=== PATIENT | male | born 1945 | race Hispanic/Latino ===

== ENCOUNTER 2019-05-04 13:39 | Inpatient (IN) | payer BC, MEDICARE ==
[~2019-05-04] VITALS: Ht 172.7 cm; Wt 88.1 kg
[~2019-05-04 13:39] MED LIST: BYSTOLIC10 MG PO; CILOSTAZOL100 MG PO; CRESTOR10 MG PO; GLIMEPIRIDE2 MG PO; LOSARTAN POTASS25 MG PO; TOUJEO SC
--- OUTSIDE RECORDS SUMMARY | 2019-05-04 14:03 | XMS REPORT | Summary of Care ---
Author Author [facility] Organization [facility] Address Unknown Phone Unavailable Encounter HQ Fito(LUIZ) [id number] Date(s): 01/09/19 - 01/09/19 [facility] [address] Discharge Disposition: Home or Self Care Attending Physician: Juan Coughlin MD Referring Physician: Juan Coughlin MD Vital Signs 1 2 3 Most recent to oldest [Reference Range]: 167.64 cm (01/09/19 10:23 AM) Height 161/70 mmHg *HI* (01/09/19 2:45 PM) 168/63 mmHg *HI* (01/09/19 2:30 PM) 150/67 mmHg *HI* (01/09/19 2:15 PM) Blood Pressure [90-140/60-90 mmHg] 19 BRMIN (01/09/19 2:45 PM) 18 BRMIN (01/09/19 2:30 PM) 16 BRMIN (01/09/19 2:15 PM) Respiratory Rate [14-20 BRMIN] 94.545 kg (01/09/19 10:23 AM) Weight 33.64 m2 (01/09/19 10:23 AM) Body Mass Index Problem List Condition Effective Dates Status Health Status Informant Anxiety(Confirmed) Active Coronary artery Active disease(Confirmed) Diabetes Resolved mellitus(Confirmed) Diabetes mellitus - Active adult onset(Confirmed) Hyperlipidemia(Confi Active rmed) Hyperlipidemia(Confi Resolved rmed) Hypertension(Confirm Active ed) Hypertension(Confirm Resolved ed) Prostate Resolved carcinoma(Confirmed) PVD - Peripheral Active vascular disease(Confirmed) PVD - Peripheral Resolved vascular disease(Confirmed) Allergies, Adverse Reactions, Alerts Substance Reaction Severity Status NKDA Active Medications ANES fentaNYL 50 microgram, 1 mL, Route: IVP, Drug form: INJ, Q5Min, Dosing Weight 94.545, kg, PRN Pain Score 7-10, Priority: Routine, Start date: 01/09/19 10:57:00 [employer], Dura tion: 2 doses or times, Stop date: 01/10/19 0:00:00 [employer] Notes: (Same as: Sublimaze) Preservative free. Start Date: 01/09/19 Stop Date: 01/10/19 Status: Completed ANES flumazenil 0.2 mg, 2 mL, Route: IVP, Drug form: INJ, PRN, Dosing Weight 94.545, kg, PRN Romie zodiazepine Reversal, Initial dose, Start date: 01/09/19 10:57:00 [employer], Duration: 30 day, Stop date: 02/08/19 11:56:00 CDT Notes: (Same as: Romazicon) Start Date: 01/09/19 Stop Date: 01/10/19 Status: Discontinued ANES hydrALAZINE 10 mg, 0.5 mL, Route: IVP, Drug form: INJ, Q20Min, Dosing Weight 94.545, kg, PRN Elevated BP, Start date: 01/09/19 10:57:00 [employer], Duration: 2 doses or times, Stop date: 01/10/19 0:00:00 [employer] Notes: (Same as: Apresoline)Push over 5 minutes Start Date: 01/09/19 Stop Date: 01/10/19 Status: Completed ANES HYDROmorphone 0.5 mg, 0.25 mL, Route: IVP, Drug form: INJ, Q5Min, Dosing Weight 94.545, kg, [place] N Pain Score 7-10, Start date: 01/09/19 10:57:00 [employer], Duration: 4 doses or times , Stop date: 01/10/19 0:00:00 [employer] Notes: Same as Dilaudid Start Date: 01/09/19 Stop Date: 01/10/19 Status: Completed ANES metoprolol 1 mg, 1 mL, Route: IVP, Drug form: INJ, Q5Min, Dosing Weight 94.545, kg, PRN Oth er -See Comment, Start date: 01/09/19 10:57:00 [employer], Duration: 5 doses or times, Stop date: 01/10/19 0:00:00 [employer] Notes: (Same as: Lopressor)Push over 2 minutes Start Date: 01/09/19 Stop Date: 01/10/19 Status: Completed ANES naloxone 0.4 mg, 1 mL, Route: IVP, Drug form: INJ, Q2MIN, Dosing Weight 94.545, kg, PRN N arcotic Reversal, Start date: 01/09/19 10:57:00 [employer], Duration: 8 doses or times, Stop date: 01/10/19 0:00:00 [employer] Notes: Same as Narcan Start Date: 01/09/19 Stop Date: 01/10/19 Status: Completed ANES ondansetron 4 mg, 2 mL, Route: IVP, Drug form: INJ, ONCE, Dosing Weight 94.545, kg, PRN Naus ea & Vomiting, Start date: 01/09/19 10:57:00 [employer] Notes: (Same as: Zofran) MEDICATION WASTE Product Size: 4 mgProduct Was eneida: ___ mg Start Date: 01/09/19 Stop Date: 01/10/19 Status: Discontinued ceFAZolin (ANES) Route: IV, Drug form: INJ, ONCE, Stop date: 01/09/19 11:08:00 [employer] Start Date: 01/09/19 Stop Date: 01/09/19 Status: Completed fentaNYL (ANES) Route: IV, Drug form: INJ, ONCE, Stop date: 01/09/19 11:08:00 [employer] Start Date: 01/09/19 Stop Date: 01/09/19 Status: Completed heparin (ANES) Route: IV, Drug form: INJ, ONCE, Stop date: 01/09/19 12:08:00 [employer] Start Date: 01/09/19 Stop Date: 01/09/19 Status: Completed metoprolol (ANES) Route: IV, Drug form: INJ, ONCE, Stop date: 01/09/19 12:46:00 [employer] Start Date: 01/09/19 Stop Date: 01/09/19 Status: Completed midazolam (ANES) Route: IV, Drug form: SOLN, ONCE, Stop date: 01/09/19 11:03:00 [employer] Start Date: 01/09/19 Stop Date: 01/09/19 Status: Completed protamine (ANES) Route: IV, Drug form: INJ, ONCE, Stop date: 01/09/19 12:40:00 [employer] Start Date: 01/09/19 Stop Date: 01/09/19 Status: Completed Sodium Chloride 0.9% (titrate) 250 mL 250 mL, Rate: To prime line and flush remaining blood products., Dosing Weight 8 8.324, kg, Route: IV, Total Volume: 250, Start Date: 01/09/19 5:00:00 [employer], Durat ion: 1 day, Stop date: 01/10/19 4:59:00 [employer], Replace Every: 24 hr Start Date: 01/09/19 Stop Date: 01/10/19 Status: Discontinued Sodium Chloride 0.9% IV (ANES) 1000 mL Route: IV, Total Volume: 1,000, Start date: 01/09/19 11:45:00 [employer], Stop date: 12:45:00 [employer] Start Date: 01/09/19 Stop Date: 01/09/19 Status: Completed Results ELECTROLYTES Most recent to 1 oldest [Reference Range]: Sodium Lvl [135-145 142 mEq/L mEq/L] (01/09/19 9:53 AM) Potassium Lvl 4.5 mEq/L [3.5-5.1 mEq/L] (01/09/19 9:53 AM) Chloride Lvl [95-109 106 mEq/L mEq/L] (01/09/19 9:53 AM) CO2 [24-32 mEq/L] 26 mEq/L (01/09/19 9:53 AM) AGAP [10.0-20.0 14.5 mEq/L mEq/L] (01/09/19 9:53 AM) CHEM PANEL Most recent to 1 oldest [Reference Range]: Creatinine Lvl 1.07 mg/dL [0.50-1.40 mg/dL] (01/09/19 9:53 AM) eGFR 68 mL/min/1.73m2 1 *NA* (01/09/19 9:53 AM) BUN [7-22 mg/dL] 16 mg/dL (01/09/19 9:53 AM) B/C Ratio [6-25] 15 (01/09/19 9:53 AM) Glucose Lvl [70-99 106 mg/dL mg/dL] *HI* (01/09/19 9:53 AM) Total Protein 8.1 g/dL [6.4-8.4 g/dL] (01/09/19 9:53 AM) Albumin Lvl [3.5-5.0 4.4 g/dL g/dL] (01/09/19 9:53 AM) Globulin [2.7-4.2 3.7 g/dL g/dL] (01/09/19 9:53 AM) A/G Ratio [0.7-1.6] 1.2 (01/09/19 9:53 AM) Calcium Lvl 10.2 mg/dL [8.5-10.5 mg/dL] (01/09/19 9:53 AM) ALT [0-65 unit/L] 24 unit/L (01/09/19 9:53 AM) AST [0-37 unit/L] 23 unit/L (01/09/19 9:53 AM) Alk Phos [39-136 70 unit/L unit/L] (01/09/19 9:53 AM) Bili Total [0.2-1.3 0.4 mg/dL mg/dL] (01/09/19 9:53 AM) 1Result Comment: The eGFR is calculated using the CKD-EPI formula. In most young, healthy individuals the eGFR will be >90 mL/min/1.73m2. The eGFR declines with age. An eGFR of 60-89 may be normal in some populations, particularly the elderly, for whom the CKD-EPI formula has not been extensively validated. Use of the eGFR is not recommended in the following populations: Individuals with unstable creatinine concentrations, including patients and those with serious co-morbid conditions. Patients with extremes in muscle mass or diet. The data above are obtained from the National Kidney Disease Education Program ( NKDEP) which additionally recommends that when the eGFR is used in patients with extremes of body mass index for purposes of drug dosing, the eGFR should be mul tiplied by the estimated BMI. SPECIAL CHEMISTRY Most recent to 1 oldest [Reference Range]: Hgb A1C [<=5.6 %] 6.9 % *HI* (01/09/19 9:53 AM) HEMATOLOGY Most recent to 1 oldest [Reference Range]: WBC [3.7-10.4 K/CMM] 9.3 K/CMM (01/09/19 9:53 AM) RBC [4.70-6.10 4.46 M/CMM M/CMM] *LOW* (01/09/19 9:53 AM) Hgb [14.0-18.0 g/dL] 13.3 g/dL *LOW* (01/09/19 9:53 AM) Hct [42.0-54.0 %] 39.1 % *LOW* (01/09/19 9:53 AM) MCV [80.0-94.0 fL] 87.8 fL (01/09/19 9:53 AM) MCH [27.0-31.0 pg] 29.7 pg (01/09/19 9:53 AM) MCHC [32.0-36.0 33.9 g/dL g/dL] (01/09/19 9:53 AM) RDW [11.5-14.5 %] 13.8 % (01/09/19 9:53 AM) MPV [7.4-10.4 fL] 8.9 fL (01/09/19 9:53 AM) Platelet [133-450 222 K/CMM K/CMM] (01/09/19 9:53 AM) Segs [45.0-75.0 %] 62.1 % (01/09/19 9:53 AM) Lymphocytes 27.9 % [20.0-40.0 %] (01/09/19 9:53 AM) Monocytes [2.0-12.0 6.9 % %] (01/09/19 9:53 AM) Eosinophils [0.0-4.0 2.4 % %] (01/09/19 9:53 AM) Basophils [0.0-1.0 0.7 % %] (01/09/19 9:53 AM) Neutrophils # 5.8 K/CMM [1.5-8.1 K/CMM] (01/09/19 9:53 AM) Lymphocytes # 2.6 K/CMM [1.0-5.5 K/CMM] (01/09/19 9:53 AM) Monocytes # [0.0-0.8 0.6 K/CMM K/CMM] (01/09/19 9:53 AM) Eosinophils # 0.2 K/CMM [0.0-0.5 K/CMM] (01/09/19 9:53 AM) Basophils # [0.0-0.2 0.1 K/CMM K/CMM] (01/09/19 9:53 AM) PT [12.0-14.7 13.0 seconds seconds] (01/09/19 9:53 AM) INR [0.85-1.17] 1.00 (01/09/19 9:53 AM) PTT [22.9-35.8 32.2 seconds seconds] (01/09/19 9:53 AM) Immunizations Not Given Vaccine Date Status Refusal Reason pneumococcal 23-valent vaccine 04/21/16 Not Given Patient Refuses Procedures Procedure Date Related Diagnosis Body Site Status MELVIN - Insertion of stent into common iliac Completed artery Femoral-popliteal artery bypass graft Completed Prostatectomy Completed Social History Social History Type Response Alcohol Never Smoking Status Never smoker; Previous treatment: None; Ready to change: No; Concerns about tobacco use in household: No; Exposure to Tobacco Smoke None; Cigarette Smoking Last 365 Days No; Reg Smoking Cessation Counseling No entered on: 01/09/19 Assessment and Plan Extracted from: Title: Clinical Document Author: Sarah Santiago RN Date: 01/09/19 Reason For Visit Follow-up visit. History of Present Illness Nir Isaac is a 72 year old patient with PAD and CAD who presents for follow- up left [employer] endarterectomy on 04/20/2016. The patient L>R intermittent claudication despite use of Pletal. He reports pain at 1/2 block and denies any rest pain. He states he has difficulty working due to the pain. He denies any skin breakdown. Review of Systems Constitutional: fatigue, butno feverandno chills. Cardiovascular: intermittent leg claudication, butno chest painandno palpitations. Respiratory: no shortness of breathandno shortness of breath during exertion. Gastrointestinal: no abdominal pain,no vomitingandno nausea. Genitourinary: no dysuria. Musculoskeletal: no limb painandno limb swelling. Integumentary: no skin wound. Neurological: no dizziness,no fainting,no tingling,no limb weaknessandno headache. Psychiatric: no anxietyandno depression. Active Problems 1. 3-vessel CAD (414.00) (I25.10) 2. Claudication (443.9) (I73.9) 3. Leg pain (729.5) (M79.606) 4. Peripheral arterial disease (443.9) (I73.9) 5. 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 1. No Known Drug Allergies Past Medical History 1. History of diabetes mellitus (V12.29) (Z86.39) 2. History of essential hypertension (V12.59) (Z86.79) 3. History of hyperlipidemia (V12.29) (Z86.39) Surgical History 1. History of Coronary artery bypass graft Social History Never a smoker No alcohol use Vitals UTP Adult Vital Signs Recorded: [id number] 11:13AM Height: 5 ft Weight: 208.4 lb BMI Calculated: 40.7 BSA Calculated: 1.9 Blood Pressure: 106 / 63 Temperature: 97.6 F Heart Rate: 73 Current Meds medication list reconciled and reviewed 1. Amiodarone HCl - 200 MG Oral Tablet; Therapy: (Recorded:16Oct2017) to Recorded 2. Aspirin TABS; Therapy: (Recorded:19Aug2014) to Recorded 3. Bystolic 20 MG Oral Tablet; Therapy: (Recorded:16Oct2017) to Recorded 4. Bystolic TABS; Therapy: (Recorded:19Aug2014) to Recorded 5. Cilostazol 100 MG Oral Tablet; Therapy: (Recorded:16Oct2017) to Recorded 6. Cozaar TABS; Therapy: (Recorded:19Aug2014) to Recorded 7. Crestor 20 MG Oral Tablet; Therapy: (Recorded:16Oct2017) to Recorded 8. Gabapentin CAPS; Therapy: (Recorded:16Oct2017) to Recorded 9. Glimepiride TABS; Therapy: (Recorded:19Aug2014) to Recorded 10. Lasix TABS; Therapy: (Recorded:16Oct2017) to Recorded 11. Lovaza CAPS; Therapy: (Recorded:19Aug2014) to Recorded 12. MetFORMIN HCl TABS; Therapy: (Recorded:[id number]) to Recorded Physical Exam General: alert and oriented,in no acute distressandwell nourished. Neck: the neck was supple,no neck mass was observedandthe appearance of the neck was normal. Pulmonary: normal respiratory rhythm and effortandclear bilateral breath sounds. Cardiac: heart rate and rhythm were normal. Vascular: no edemaandnormal femoral pulses. Pulses: Right dorsalis pedis pulses: negative. Left dorsalis pedis pulse: negative. Right posterior tibial pulses: negative. Left posterior tibial pulse: negative. Extremities: Right sided incision(s) well healed,left sided incision(s) well healed Lymphatics: no lymphadenopathy. Abdomen: soft,midline incision(s) well healed,non-tenderandno abdominal mass palpated. Neurologic: the motor exam was normal, butthe sensory exam was normal to light touch and pinprick. Musculoskeletal: muscle strength and tone were normal. Skin: no skin lesions. Psychiatric: oriented to person, place, and timeandthe affect was normal. Assessment Patient is a 73-year-old man with lifestyle limiting one half block bilateral leg claudication. He reports worse pain on the left side. 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 He quit smoking and has tried exercise therapy. He has also tried Pletal without relief. We previously scheduled him for angiogram in February 2018 but his canceled the case since he was not feeling well. He has a lower midline abdominal incision as well as bilateral vertical groin incisions but neither the patient nor his remember the exact procedure he had. They felt that it was a procedure for fertility more than 20 years ago. We will schedule him for left lower extremity angiogram and revascularization. Risk and Benefits Risks, benefits, and alternate therapies including non-operative management were discussed with the patient. Patient verbalizes understanding and wishes to proceed. The patient understands that there is a potential for infection, blood clots in veins and lungs, hemorrhage, allergic reaction, and even . Other risks include: limb loss,myocardial infarction,nerve injuryandrecurrence of symptoms. Signatures Electronically signed by : JUAN COUGHLIN M.D.; Nov 04 2018 5:16PM [employer] (Author)
--- OUTSIDE RECORDS SUMMARY | 2019-05-04 14:03 | XMS REPORT | Summary of Care ---
Author Organization Unknown Address Unknown Phone Unavailable Encounter HQ Rahatntr_nikia(LUIZ) [id number] Date(s): 06/18/14 - 06/18/14 [facility] [address] [place] [address] Discharge Disposition: Home Physician Attending: Khari Wilson MD Physician_Referring: Khari Wilson MD Reason for Visit 443.9 Problem List Condition Effective Dates Status Health Status Informant Anxiety(Confirmed) Active Coronary artery Active disease(Confirmed) Diabetes Resolved mellitus(Confirmed) Diabetes mellitus - Active adult onset(Confirmed) Hyperlipidemia(Confi Active rmed) Hyperlipidemia(Confi Resolved rmed) Hypertension(Confirm Active ed) Hypertension(Confirm Resolved ed) Prostate Resolved carcinoma(Confirmed) PVD - Peripheral Active vascular disease(Confirmed) PVD - Peripheral Resolved vascular disease(Confirmed) Allergies, Adverse Reactions, Alerts Substance Reaction Severity Status NKDA Active Medications No data available for this section Medications Administered During Your Visit No data available for this section Immunizations No data available for this section
--- OUTSIDE RECORDS SUMMARY | 2019-05-04 14:03 | XMS REPORT | Summary of Care ---
Author Author [facility] Organization [facility] Address Unknown Phone Unavailable Encounter [facility](LUIZ) [id number] Date(s): 07/12/17 - 07/26/17 [facility] [address] [employer] provided by [employer] [place] [address]- Discharge Disposition: Home or Self Care Attending Physician: Noe Zheng MD Admitting Physician: Aftab Rievra MD Referring Physician: Aftab Rivera MD Vital Signs 1 2 3 Most recent to oldest [Reference Range]: 172.72 cm (07/19/17 11:16 PM) 172.72 cm (07/19/17 7:05 PM) 172.72 cm (07/12/17 7:34 AM) Height 95.085 kg (07/25/17 4:23 AM) 96.392 kg (07/24/17 5:21 AM) 97.818 kg (07/23/17 4:17 AM) Current Weight 98.7 DegF (07/26/17 12:09 PM) 97.7 DegF (07/26/17 7:16 AM) 97.6 DegF (07/26/17 4:44 AM) Temperature Oral [96.4-99.1 DegF] 116/55 mmHg (07/26/17 11:13 AM) 119/57 mmHg (07/26/17 9:20 AM) 147/65 mmHg *HI* (07/26/17 7:16 AM) Blood Pressure [90-140/60-90 mmHg] 16 BRMIN (07/26/17 11:13 AM) 20 BRMIN (07/26/17 9:20 AM) 12 BRMIN *LOW* (07/26/17 7:16 AM) Respiratory Rate [14-20 BRMIN] 88.324 kg (07/19/17 6:02 AM) 91.364 kg (07/12/17 7:34 AM) Weight 30.63 m2 (07/12/17 7:34 AM) Body Mass Index Problem List Condition [...] Substance Reaction Severity Status NKDA Active Medications acetaminophen 1,000 mg, 100 mL, Route: IV, Drug form: INJ, Q6Hnow, Dosing Weight 88.324, kg, S tart date: 07/20/17 13:00:00 CDT, Duration: 30 day, Stop date: 08/19/17 7:00:00 CDT Notes: Infuse over 15 minutesDo not exceed 4gm/day of acetaminophen MEDICAT ION WASTE Product Size: 1000 mgProduct Wasted: _0_ mg Start Date: 07/20/17 Stop Date: 07/23/17 Status: Discontinued albumin human 5% intravenous solution 12.5 gm, 250 mL, 500 ml/hr, Route: IV, Drug Form: INJ, Dosing Weight 88.324, kg, ONCE, Start date: 07/19/17 22:42:00 CDT, Stop date: 07/19/17 22:42:00 CDT Notes: LOT#: Mfg: WASTE: F/P - Red; E -Red (Same a s: Albuminar)"blood product derivative" Start Date: 07/19/17 Stop Date: 07/19/17 Status: Completed albumin human 5% intravenous solution 12.5 gm, 250 mL, 500 ml/hr, Route: IV, Drug Form: INJ, Dosing Weight 88.324, kg, ONCE, Start date: 07/19/17 22:08:00 CDT, Stop date: 07/19/17 22:08:00 CDT Notes: LOT#: Mfg: WASTE: F/P - Red; E -Red (Same a s: Albuminar)"blood product derivative" Start Date: 07/19/17 Stop Date: 07/19/17 Status: Completed AMIODarone 400 mg, 2 tab, Route: PO, Drug form: TAB, BID, Dosing Weight 88.324, kg, Priorit y: NOW, Start date: 07/22/17 10:12:00 CDT, Stop date: 08/21/17 9:00:00 CDT Notes: (Same as: Cordarone) Start Date: 07/22/17 Stop Date: 07/25/17 Status: Discontinued AMIODarone 200 mg, 1 tab, Route: PO, Drug form: TAB, BID, Dosing Weight 88.324, kg, Start d ate: 07/25/17 9:00:00 CDT, Duration: 30 day, Stop date: 08/23/17 17:00:00 CDT Notes: (Same as: Cordarone) Start Date: 07/25/17 Stop Date: 07/26/17 Status: Discontinued AMIODarone + D5W 100 mL 150 mg, 3 mL, Route: IVPB, ONCE, Dosing Weight 88.324, kg, Start date: 07/24/17 3:57:00 CDT, Stop date: 07/24/17 3:57:00 CDT Notes: Central administration only for concentrations > 2 mg/ml."Recommendation: Use an in-line filter during administration for continuous infusions to reduce the incidence of phlebitis"(Same as Codarone) MEDICATION WASTE Product Size: 150 mgProduct Wasted: ___ mg Start Date: 07/24/17 Stop Date: 07/24/17 Status: Completed AMIODarone + Dextrose 5% in Water IV 100 mL 150 mg, Route: IVPB, ONCE, Dosing Weight 88.324, kg, Start date: 07/21/17 12:15: 00 CDT, Stop date: 07/21/17 12:15:00 CDT Start Date: 07/21/17 Stop Date: 07/21/17 Status: Completed AMIODarone 200 mg oral tablet 200 mg=1 tab, PO, BID, # 60 tab, 0 Refill(s) Start Date: 07/26/17 Stop Date: 07/26/17 Status: Deleted AMIODarone 200 mg oral tablet 200 mg=1 tab, PO, BID, # 60 tab, 0 Refill(s) Start Date: 07/26/17 Stop Date: 08/25/17 Status: Ordered AMIODarone INJ 900 mg + D5W 500 ml INJ 482 mL 900 mg, 18 mL, Rate: 1 mg/min for 6 hours, then reduce to 0.5 mg/min, Dosing Steve t 88.324, kg, Route: IV, Total Volume: 500, Start Date: 07/21/17 12:15:00 CDT, Duration: 30 day, Stop date: 08/20/17 12:14:00 CDT, Replace Every: 24 hr Notes: Central administration only for concentration > 2 mg/ml. Use Glass Bottle or Non PVC Bag"Use 0.22 micron in-line filter" MEDICATION WASTE Product Size: 900 mgProduct Wasted: _0__ mg Start Date: 07/21/17 Stop Date: 07/22/17 Status: Discontinued AMIODarone INJ 900 mg + D5W 500 ml INJ 482 mL 900 mg, 18 mL, Rate: 1 mg/min for 6 hours, then reduce to 0.5 mg/min, Dosing Steve t 88.324, kg, Route: IV, Total Volume: 500, Start Date: 07/24/17 3:57:00 CDT, Duration: 30 day, Stop date: 08/23/17 3:56:00 CDT, Replace Every: 24 hr Notes: Central administration only for concentration > 2 mg/ml. Use Glass Bottle or Non PVC Bag"Use 0.22 micron in-line filter" MEDICATION WASTE Product Size: 900 mgProduct Wasted: ___ mg Start Date: 07/24/17 Stop Date: 07/24/17 Status: Discontinued aspirin 81 mg tablet, enteric coated 81 mg, 1 tab, Route: PO, Drug form: ECTAB, Daily, Dosing Weight 88.324, kg, Star t date: 07/26/17 9:00:00 CDT, Duration: 30 day, Stop date: 08/24/17 9:00:00 CDT Notes: Do not crush or chew.(Same As: Ecotrin) Start Date: 07/26/17 Stop Date: 07/26/17 Status: Discontinued aspirin 81 mg tablet, enteric coated 81 mg, 1 tab, Route: PO, Drug form: ECTAB, Daily, Dosing Weight 91.364, kg, Star t date: 07/13/17 9:00:00 CDT, Duration: 30 day, Stop date: 08/11/17 9:00:00 CDT Notes: Do not crush or chew.(Same As: Ecotrin) Start Date: 07/13/17 Stop Date: 07/19/17 Status: Discontinued aspirin 81 mg tablet, enteric coated 162 mg, 2 tab, Route: PO, Drug form: ECTAB, Daily, Dosing Weight 88.324, kg, Sta rt date: 07/20/17 9:00:00 CDT, Duration: 30 day, Stop date: 08/18/17 9:00:00 CDT Notes: Do not crush or chew.(Same As: Ecotrin) Start Date: 07/20/17 Stop Date: 07/25/17 Status: Discontinued atorvastatin 40 mg, Route: PO, Drug form: TAB, Bedtime, Dosing Weight 88.324, kg, Start date: 07/19/17 21:00:00 CDT, Duration: 30 day, Stop date: 08/17/17 21:00:00 CDT Start Date: 07/19/17 Stop Date: 07/19/17 Status: Discontinued Bystolic 20 mg, 4 tab, Route: PO, Drug form: TAB, Daily, Dosing Weight 91.364, kg, Start date: 07/13/17 9:00:00 CDT, Stop date: 08/11/17 9:00:00 CDT Notes: (same as: Bystolic) Start Date: 07/13/17 Stop Date: 07/26/17 Status: Discontinued calcium carbonate 500 mg (200 mg elemental calcium) oral tablet 1,000 mg, 2 tab, Route: PO, Drug form: CHEWTAB, PRN, Dosing Weight 88.324, kg, P RN Abnormal Lab Result, FOR ICU USE ONLY, Start date: 07/19/17 18:37:00 CDT, Dur ation: 30 day, Stop date: 08/18/17 18:36:00 CDT Notes: (Same As: Tums)Calcium Carbonate 500 pb=374 mg elemental calcium Dose=_ mg calcium carbonate ( mg elemental calcium) Start Date: 07/19/17 Stop Date: 07/23/17 Status: Discontinued calcium carbonate 500 mg (200 mg elemental calcium) oral tablet 500 mg, 1 tab, Route: PO, Drug form: CHEWTAB, PRN, Dosing Weight 88.324, kg, PRN Abnormal Lab Result, FOR ICU USE ONLY, Start date: 07/19/17 18:37:00 CDT, Durat ion: 30 day, Stop date: 08/18/17 18:36:00 CDT Notes: (Same As: Tums)Calcium Carbonate 500 bm=346 mg elemental calcium Dose=_ mg calcium carbonate ( mg elemental calcium) Start Date: 07/19/17 Stop Date: 07/23/17 Status: Discontinued calcium gluconate (ANES) Route: IV, Drug form: INJ, ONCE, Stop date: 07/19/17 18:24:00 CDT Start Date: 07/19/17 Stop Date: 07/19/17 Status: Completed calcium gluconate + sodium chloride 0.9% INJ 50 mL 1 gm, 10 mL, Route: IVPB, PRN, Dosing Weight 88.324, kg, PRN Abnormal Lab Result , Start date: 07/19/17 18:37:00 CDT, Duration: 30 day, Stop date: 08/18/17 18:36 :00 CDT, FOR ICU USE ONLY Notes: WASTE: F/P - Sink; E - Municipal Trash Bin Start Date: 07/19/17 Stop Date: 07/23/17 Status: Discontinued calcium gluconate + sodium chloride 0.9% INJ 70 mL 3 gm, 30 mL, Route: IVPB, PRN, Dosing Weight 88.324, kg, PRN Abnormal Lab Result , For NON-ICU Patients Only., Start date: 07/23/17 10:49:00 CDT, Duration: 30 da y, Stop date: 08/22/17 10:48:00 CDT Notes: WASTE: F/P - Sink; E - Municipal Trash Bin Start Date: 07/23/17 Stop Date: 07/26/17 Status: Discontinued calcium gluconate + sodium chloride 0.9% INJ 80 mL 3 gm, 30 mL, Route: IVPB, PRN, Dosing Weight 91.364, kg, PRN Abnormal Lab Result , For NON-ICU Patients Only., Start date: 07/12/17 14:48:00 CDT, Duration: 30 da y, Stop date: 08/11/17 14:47:00 CDT Notes: WASTE: F/P - Sink; E - Municipal Trash Bin Start Date: 07/12/17 Stop Date: 07/19/17 Status: Discontinued calcium gluconate + sodium chloride 0.9% INJ 80 mL 2 gm, 20 mL, Route: IVPB, PRN, Dosing Weight 91.364, kg, PRN Abnormal Lab Result , For NON-ICU Patients Only., Start date: 07/12/17 14:48:00 CDT, Duration: 30 da y, Stop date: 08/11/17 14:47:00 CDT Notes: WASTE: F/P - Sink; E - Municipal Trash Bin Start Date: 07/12/17 Stop Date: 07/19/17 Status: Discontinued calcium gluconate + sodium chloride 0.9% INJ 80 mL 2 gm, 20 mL, Route: IVPB, PRN, Dosing Weight 88.324, kg, PRN Abnormal Lab Result , For NON-ICU Patients Only., Start date: 07/23/17 10:49:00 CDT, Duration: 30 da y, Stop date: 08/22/17 10:48:00 CDT Notes: WASTE: F/P - Sink; E - Municipal Trash Bin Start Date: 07/23/17 Stop Date: 07/26/17 Status: Discontinued Cardiac Rehabilitation See Instructions, s/p CABGx3, # 1 unit, 0 Refill(s) Start Date: 07/26/17 Status: Ordered ceFAZolin (ANES) Route: IV, Drug form: INJ, ONCE, Stop date: 07/19/17 15:33:00 CDT Start Date: 07/19/17 Stop Date: 07/19/17 Status: Completed ceFAZolin (SCIP) 2 gm, 100 mL, Route: IVPB, Drug form: INJ, [id number], Dosing Weight 88.324, kg, Sta rt date: 07/20/17 2:30:00 CDT, Duration: 3 doses or times, Stop date: 07/20/17 1 8:30:00 CDT, ABX Indication: Surgical Prophylaxis Notes: Same as: Ancef Start Date: 07/20/17 Stop Date: 07/20/17 Status: Completed chlorhexidine topical 0.12% liquid 15 mL, Route: Swab Mouth, Q12H, Drug form: LIQ, Start date: 07/19/17 21:00:00 CD T, Duration: 30 day, Stop date: 08/18/17 9:00:00 CDT Notes: (Same As: Peridex) Start Date: 07/19/17 Stop Date: 07/20/17 Status: Discontinued chlorhexidine topical 0.12% liquid 15 mL, Route: Swab Mouth, PRN, Drug form: LIQ, PRN Other -See Comment, Start renate e: 07/19/17 19:16:00 CDT, Duration: 30 day, Stop date: 08/18/17 19:15:00 CDT Notes: (Same As: Peridex) Start Date: 07/19/17 Stop Date: 07/20/17 Status: Discontinued cilostazol 100 mg, 2 tab, Route: PO, Drug form: TAB, BID, Dosing Weight 91.364, kg, Start d ate: 07/12/17 17:00:00 CDT, Stop date: 08/11/17 9:00:00 CDT Notes: Non-Formulary Drug. (Same As: Pletal) Start Date: 07/12/17 Stop Date: 07/17/17 Status: Discontinued colchicine 0.6 mg, 1 tab, Route: PO, Drug form: TAB, BID, Dosing Weight 88.324, kg, Start d ate: 07/25/17 17:00:00 CDT, Duration: 30 day, Stop date: 08/24/17 9:00:00 CDT Start Date: 07/25/17 Stop Date: 07/26/17 Status: Discontinued Crestor 20 mg, 2 tab, Route: PO, Drug form: TAB, Bedtime, Dosing Weight 91.364, kg, Star t date: 07/12/17 21:37:00 CDT, Duration: 30 day, Stop date: 08/11/17 21:00:00 CD T Notes: (Same As: Crestor) Start Date: 07/12/17 Stop Date: 07/26/17 Status: Discontinued Dextrose 50% Syringe 25 gm, 50 mL, Route: IVP, Drug Form: INJ, Dosing Weight 88.324, kg, PRN, PRN Blo od Glucose Results, Start date: 07/19/17 18:37:00 CDT, Duration: 30 day, Stop da te: 08/18/17 18:36:00 CDT Start Date: 07/19/17 Stop Date: 07/22/17 Status: Discontinued Dextrose 50% Syringe 12.5 gm, 25 mL, Route: IVP, Drug Form: INJ, Dosing Weight 88.324, kg, PRN, PRN B lood Glucose Results, Start date: 07/19/17 18:37:00 CDT, Duration: 30 day, Stop date: 08/18/17 18:36:00 CDT Start Date: 07/19/17 Stop Date: 07/22/17 Status: Discontinued Dextrose 50% Syringe 12.5 gm, 25 mL, Route: IVP, Drug Form: INJ, Dosing Weight 88.324, kg, PRN, PRN B lood Glucose Results, Start date: 07/21/17 11:22:00 CDT, Duration: 30 day, Stop date: 08/20/17 11:21:00 CDT Start Date: 07/21/17 Stop Date: 07/26/17 Status: Discontinued Dextrose 50% Syringe 25 gm, 50 mL, Route: IVP, Drug Form: INJ, Dosing Weight 88.324, kg, PRN, PRN Blo od Glucose Results, Start date: 07/21/17 11:22:00 CDT, Duration: 30 day, Stop da te: 08/20/17 11:21:00 CDT Start Date: 07/21/17 Stop Date: 07/26/17 Status: Discontinued Dextrose 50% Syringe 12.5 gm, 25 mL, Route: IVP, Drug Form: INJ, Dosing Weight 91.364, kg, PRN, PRN B lood Glucose Results, Start date: 07/12/17 11:53:00 CDT, Duration: 30 day, Stop date: 08/11/17 11:52:00 CDT Start Date: 07/12/17 Stop Date: 07/19/17 Status: Discontinued Dextrose 50% Syringe 25 gm, 50 mL, Route: IVP, Drug Form: INJ, Dosing Weight 91.364, kg, PRN, PRN Blo od Glucose Results, Start date: 07/12/17 11:53:00 CDT, Duration: 30 day, Stop da te: 08/11/17 11:52:00 CDT Start Date: 07/12/17 Stop Date: 07/19/17 Status: Discontinued Doc-Q-Lax 2 tab, Route: PO, Drug Form: TAB, Dosing Weight 88.324, kg, Daily, PRN Constipat ion, Start date: 07/21/17 9:00:00 CDT, Stop date: 08/19/17 9:00:00 CDT Notes: (Same as Senokot-S) Equiv. to Aileen-Colace. Start Date: 07/21/17 Stop Date: 07/26/17 Status: Discontinued docusate-senna 50 mg-8.6 mg oral tablet 2 tab, PO, Daily, PRN Constipation, X 14 day, # 28 tab, 0 Refill(s) Start Date: 07/26/17 Stop Date: 08/09/17 Status: Ordered DuoNeb inhalation solution 3 ml, Route: NEB, Drug Form: SOLN, Dosing Weight 88.324, kg, PRN, PRN Respirator y Protocol, Start date: 07/19/17 20:50:00 CDT, Duration: 30 day, Stop date: 12/04 20:49:00 CDT Notes: (Same as: Duoneb) Start Date: 07/19/17 Stop Date: 07/26/17 Status: Discontinued Electrolyte Solution 1000 mL 1,000 mL, Rate: 100 ml/hr, Infuse over: 10 hr, Route: IV, Dosing Weight 91.364 k g, Total Volume: 1,000, Start date: 07/18/17 12:32:00 CDT, Duration: 30 day, Sto p date: 08/17/17 12:31:00 CDT Start Date: 07/18/17 Stop Date: 07/18/17 Status: Discontinued Emla topical cream 1 appl, Route: TOP, ONCE, Drug form: CRM, Start date: 07/12/17 7:37:00 CDT, Stop date: 07/12/17 7:37:00 CDT Notes: Apply to desired area 2 hrs prior to needle insertion. (Same as: Emla) Start Date: 07/12/17 Stop Date: 07/12/17 Status: Completed esmolol (ANES) Route: IV, Drug form: INJ, ONCE, Stop date: 07/19/17 16:28:00 CDT Start Date: 07/19/17 Stop Date: 07/19/17 Status: Completed fentaNYL 25 microgram, 0.5 mL, Route: IV, Drug form: INJ, Q2H, Dosing Weight 88.324, kg, PRN Pain Score 4-6, Start date: 07/19/17 19:17:00 CDT, Duration: 30 day, Stop da te: 08/18/17 19:16:00 CDT Notes: (Same as: Sublimaze) Preservative free. Start Date: 07/19/17 Stop Date: 07/20/17 Status: Discontinued fentaNYL (ANES) Route: IV, Drug form: INJ, ONCE, Stop date: 07/19/17 14:43:00 CDT Start Date: 07/19/17 Stop Date: 07/19/17 Status: Completed fentaNYL - one time ICU bolus dose 50 microgram, 1 mL, Route: IVP, Drug form: INJ, ONCE, Dosing Weight 88.324, kg, Start date: 07/20/17 0:15:00 CDT, Stop date: 07/20/17 0:15:00 CDT Notes: (Same as: Sublimaze) Preservative free. Start Date: 07/20/17 Stop Date: 07/20/17 Status: Completed gabapentin 100 mg oral capsule 100 mg, 1 cap, Route: PO, Drug form: CAP, Q8Hnow, Dosing Weight 88.324, kg, Star t date: 07/20/17 10:30:00 CDT, Duration: 30 day, Stop date: 08/19/17 2:30:00 CDT Notes: (Same as: Neurontin) Start Date: 07/20/17 Stop Date: 07/26/17 Status: Discontinued gabapentin 100 mg oral capsule 100 mg=1 cap, PO, Q8Hnow, # 90 cap, 0 Refill(s) Start Date: 07/26/17 Stop Date: 08/25/17 Status: Ordered glucagon 1 mg, Route: IM, Drug form: PDR/INJ, PRN, Dosing Weight 88.324, kg, PRN Blood Gl ucose Results, Start date: 07/21/17 11:22:00 CDT, Duration: 30 day, Stop date: 1 11:21:00 CDT Start Date: 07/21/17 Stop Date: 07/26/17 Status: Discontinued glucagon 1 mg, Route: IM, Drug form: PDR/INJ, PRN, Dosing Weight 91.364, kg, PRN Blood Gl ucose Results, Start date: 07/12/17 11:53:00 CDT, Duration: 30 day, Stop date: 0 08/11/17 11:52:00 CDT Start Date: 07/12/17 Stop Date: 07/19/17 Status: Discontinued Glycerol 100 mL, Route: GA, Drug Form: MISC, ONCE, Start date: 07/21/17 8:58:00 CDT, Stop date: 07/21/17 8:58:00 CDT Notes: (Same as: Zohran) Start Date: 07/21/17 Stop Date: 07/21/17 Status: Completed heparin (ANES) Route: IV, Drug form: INJ, ONCE, Stop date: 07/19/17 16:23:00 CDT Start Date: 07/19/17 Stop Date: 07/19/17 Status: Completed heparin 5000 units/mL injectable solution 5,000 unit, 1 mL, Route: SUB-Q, Drug form: INJ, Q8H, Dosing Weight 91.364, kg, S tart date: 07/18/17 16:00:00 CDT, Duration: 30 day, Stop date: 08/17/17 8:00:00 CDT Notes: porcine heparin Start Date: 07/18/17 Stop Date: 07/20/17 Status: Discontinued HYDROmorphone SYSTEMS QA ANALYST 0.5mg/ml 30ml INJ 15 mg 15 mg, 30 mL, Route: IV, Initial Loading Dose: 0.4mg, SYSTEMS QA ANALYST Dose: 0.2 mg, SYSTEMS QA ANALYST Lock out: 10 minutes, Continuous Basal Rate: 0 mg, 4 Hour Limit (In MG): 6, Drug Form : INJ, Continuous, Start date: 07/20/17 1:30:00 CDT, Duration: 30 day, Stop date : 08/19/17... Notes: (Same as: Dilaudid) conc=0.5 mg/mlHydromorphone SYSTEMS QA ANALYST Dose: ;Delay: ;Basal: Start Date: 07/20/17 Stop Date: 07/21/17 Status: Discontinued insulin glargine 25 unit, 0.25 mL, Route: SUB-Q, Drug form: SOLN, Daily, Start date: 07/21/17 11: 30:00 CDT, Duration: 30 day, Stop date: 08/20/17 9:00:00 CDT Notes: (Same as: Lantus)Do not hold insulin without contacting prescriberWASTE: F/P - Black; E - Municipal Trash Bin "single patient use only" Start Date: 07/21/17 Stop Date: 07/26/17 Status: Discontinued insulin lispro 1 unit, 0.01 mL, Route: SUB-Q, Drug form: SOLN, TID-Before Meals, Dosing Weight 88.324, kg, PRN Blood Glucose Results, Start date: 07/21/17 11:22:00 CDT, Durati on: 30 day, Stop date: 08/20/17 11:21:00 CDT Notes: (Same as: Humalog ) Roll in palms of hands gently; Do not shake `vigorou sly. "Single Patient Use Only " (Restricted to patients requiring a dose > 60 units)WASTE: F/P - Black; E - Municipal Trash Bin Stable for 28 days at room temperature.Expires in days from Date Start Date: 07/21/17 Stop Date: 07/26/17 Status: Discontinued insulin lispro 4 unit, 0.04 mL, Route: SUB-Q, Drug form: SOLN, TID-Before Meals, Dosing Weight 88.324, kg, PRN Blood Glucose Results, Start date: 07/21/17 11:22:00 CDT, Durati on: 30 day, Stop date: 08/20/17 11:21:00 CDT Notes: (Same as: Humalog ) Roll in palms of hands gently; Do not shake `vigorou sly. "Single Patient Use Only " (Restricted to patients requiring a dose > 60 units)WASTE: F/P - Black; E - Municipal Trash Bin Stable for 28 days at room temperature.Expires in days from Date Start Date: 07/21/17 Stop Date: 07/26/17 Status: Discontinued insulin lispro 3 unit, 0.03 mL, Route: SUB-Q, Drug form: SOLN, TID-Before Meals, Dosing Weight 88.324, kg, PRN Blood Glucose Results, Start date: 07/21/17 11:22:00 CDT, Durati on: 30 day, Stop date: 08/20/17 11:21:00 CDT Notes: (Same as: Humalog ) Roll in palms of hands gently; Do not shake `vigorou sly. "Single Patient Use Only " (Restricted to patients requiring a dose > 60 units)WASTE: F/P - Black; E - Municipal Trash Bin Stable for 28 days at room temperature.Expires in days from Date Start Date: 07/21/17 Stop Date: 07/26/17 Status: Discontinued insulin lispro 2 unit, 0.02 mL, Route: SUB-Q, Drug form: SOLN, TID-Before Meals, Dosing Weight 88.324, kg, PRN Blood Glucose Results, Start date: 07/21/17 11:22:00 CDT, Durati on: 30 day, Stop date: 08/20/17 11:21:00 CDT Notes: (Same as: Humalog ) Roll in palms of hands gently; Do not shake `vigorou sly. "Single Patient Use Only " (Restricted to patients requiring a dose > 60 units)WASTE: F/P - Black; E - Municipal Trash Bin Stable for 28 days at room temperature.Expires in days from Date Start Date: 07/21/17 Stop Date: 07/26/17 Status: Discontinued insulin lispro 5 unit, 0.05 mL, Route: SUB-Q, Drug form: SOLN, TID-Before Meals, Dosing Weight 88.324, kg, PRN Blood Glucose Results, Start date: 07/21/17 11:22:00 CDT, Durati on: 30 day, Stop date: 08/20/17 11:21:00 CDT Notes: (Same as: Humalog ) Roll in palms of hands gently; Do not shake `vigorou sly. "Single Patient Use Only " (Restricted to patients requiring a dose > 60 units)WASTE: F/P - Black; E - Municipal Trash Bin Stable for 28 days at room temperature.Expires in days from Date Start Date: 07/21/17 Stop Date: 07/26/17 Status: Discontinued insulin lispro 8 unit, 0.08 mL, Route: SUB-Q, Drug form: SOLN, TID-Before Meals, Dosing Weight 88.324, kg, Start date: 07/21/17 11:30:00 CDT, Duration: 30 day, Stop date: 02/01 7:30:00 CDT Notes: (Same as: Humalog ) Roll in palms of hands gently; Do not shake `vigorou sly. "Single Patient Use Only " (Restricted to patients requiring a dose > 60 units)WASTE: F/P - Black; E - Municipal Trash Bin Stable for 28 days at room temperature.Expires in days from Date Start Date: 07/21/17 Stop Date: 07/26/17 Status: Discontinued insulin lispro 5 unit, 0.05 mL, Route: SUB-Q, Drug form: SOLN, TID-Before Meals, Dosing Weight 91.364, kg, PRN Blood Glucose Results, Start date: 07/12/17 11:53:00 CDT, Durati on: 30 day, Stop date: 08/11/17 11:52:00 CDT Notes: (Same as: Humalog ) Roll in palms of hands gently; Do not shake `vigorou sly. "Single Patient Use Only " (Restricted to patients requiring a dose > 60 units)WASTE: F/P - Black; E - Municipal Trash Bin Stable for 28 days at room temperature.Expires in days from Date Start Date: 07/12/17 Stop Date: 07/19/17 Status: Discontinued insulin lispro 4 unit, 0.04 mL, Route: SUB-Q, Drug form: SOLN, TID-Before Meals, Dosing Weight 91.364, kg, PRN Blood Glucose Results, Start date: 07/12/17 11:53:00 CDT, Durati on: 30 day, Stop date: 08/11/17 11:52:00 CDT Notes: (Same as: Humalog ) Roll in palms of hands gently; Do not shake `vigorou sly. "Single Patient Use Only " (Restricted to patients requiring a dose > 60 units)WASTE: F/P - Black; E - Municipal Trash Bin Stable for 28 days at room temperature.Expires in days from Date Start Date: 07/12/17 Stop Date: 07/19/17 Status: Discontinued insulin lispro 3 unit, 0.03 mL, Route: SUB-Q, Drug form: SOLN, TID-Before Meals, Dosing Weight 91.364, kg, PRN Blood Glucose Results, Start date: 07/12/17 11:53:00 CDT, Durati on: 30 day, Stop date: 08/11/17 11:52:00 CDT Notes: (Same as: Humalog ) Roll in palms of hands gently; Do not shake `vigorou sly. "Single Patient Use Only " (Restricted to patients requiring a dose > 60 units)WASTE: F/P - Black; E - Municipal Trash Bin Stable for 28 days at room temperature.Expires in days from Date Start Date: 07/12/17 Stop Date: 07/19/17 Status: Discontinued insulin lispro 2 unit, 0.02 mL, Route: SUB-Q, Drug form: SOLN, TID-Before Meals, Dosing Weight 91.364, kg, PRN Blood Glucose Results, Start date: 07/12/17 11:53:00 CDT, Durati on: 30 day, Stop date: 08/11/17 11:52:00 CDT Notes: (Same as: Humalog ) Roll in palms of hands gently; Do not shake `vigorou sly. "Single Patient Use Only " (Restricted to patients requiring a dose > 60 units)WASTE: F/P - Black; E - Municipal Trash Bin Stable for 28 days at room temperature.Expires in days from Date Start Date: 07/12/17 Stop Date: 07/19/17 Status: Discontinued insulin lispro 1 unit, 0.01 mL, Route: SUB-Q, Drug form: SOLN, TID-Before Meals, Dosing Weight 91.364, kg, PRN Blood Glucose Results, Start date: 07/12/17 11:53:00 CDT, Durati on: 30 day, Stop date: 08/11/17 11:52:00 CDT Notes: (Same as: Humalog ) Roll in palms of hands gently; Do not shake `vigorou sly. "Single Patient Use Only " (Restricted to patients requiring a dose > 60 units)WASTE: F/P - Black; E - Municipal Trash Bin Stable for 28 days at room temperature.Expires in days from Date Start Date: 07/12/17 Stop Date: 07/19/17 Status: Discontinued Insulin regular (ANES) Route: IV, Drug form: INJ, ONCE, Stop date: 07/19/17 17:18:00 CDT Start Date: 07/19/17 Stop Date: 07/19/17 Status: Completed Insulin regular (ANES) (ANES) Route: IV, Drug form: INJ, Start date: 07/19/17 17:32:00 CDT, Stop date: 7 18:32:00 CDT Start Date: 07/19/17 Stop Date: 07/19/17 Status: Completed Insulin regular 100 unit + 99 mL, Rate: Start Insulin Drip Per ICU Protocol, Dosing Weight 88.324, kg, Rout e: IVPB, Total Volume: 100, Start Date: 07/19/17 18:37:00 CDT, Stop date: 13:46:00 CDT, Replace Every: 24 hr Notes: Final Concentration 1unit/1mlWASTE: F/P - Black; [facility] Start Date: 07/19/17 Stop Date: 07/21/17 Status: Completed Isolyte S (PH 7.4) 1000 mL 1,000 mL 1,000 mL, Rate: 100 ml/hr, Infuse over: 10 hr, Route: IV, Dosing Weight 91.364 k g, Total Volume: 1,000, Start date: 07/19/17 0:01:00 CDT, Duration: 30 day, Stop date: 08/18/17 0:00:00 CDT Notes: (Same as: Isolyte S PH 7.4) Start Date: 07/19/17 Stop Date: 07/20/17 Status: Discontinued Isolyte S PH-7.4 (Bolus) IV 1,000 mL, 1000 ml/hr, Route: IV, Drug Form: SOLN, Dosing Weight 88.324, kg, ONCE , NOW, Start date: 07/19/17 23:57:00 CDT, Stop date: 07/19/17 23:57:00 CDT Notes: (Same as: Isolyte S PH 7.4) Start Date: 07/19/17 Stop Date: 07/20/17 Status: Completed Isolyte S PH-7.4 (Bolus) IV 1,000 mL, Route: IV, Drug Form: SOLN, Dosing Weight 88.324, kg, ONCE, NOW, Start date: 07/19/17 19:12:00 CDT, Stop date: 07/19/17 19:12:00 CDT Notes: (Same as: Isolyte S PH 7.4) Start Date: 07/19/17 Stop Date: 07/19/17 Status: Completed Isolyte S PH-7.4 (Bolus) IV 1,000 mL, 1000 ml/hr, Route: IV, Drug Form: SOLN, Dosing Weight 88.324, kg, ONCE , Start date: 07/19/17 20:47:00 CDT, Stop date: 07/19/17 20:47:00 CDT Notes: (Same as: Isolyte S PH 7.4) Start Date: 07/19/17 Stop Date: 07/19/17 Status: Completed Lasix 40 mg, 4 mL, Route: IV, Drug form: INJ, ONCE, Dosing Weight 88.324, kg, Start da te: 07/25/17 11:01:00 CDT, Stop date: 07/25/17 11:01:00 CDT Notes: (Same as: Lasix) MEDICATION WASTE Product Size: 40 mgProduct Was eneida: ___ mg Start Date: 07/25/17 Stop Date: 07/25/17 Status: Completed Lasix 20 mg oral tablet 20 mg=1 tab, PO, Daily, # 3 tab, 0 Refill(s) Start Date: 07/26/17 Stop Date: 07/29/17 Status: Ordered Levemir 25 unit, Route: SUB-Q, Daily, Dosing Weight 88.324, kg, Priority: NOW, Start renate e: 07/21/17 11:10:00 CDT, Duration: 30 day, Stop date: 08/20/17 9:00:00 CDT Start Date: 07/21/17 Stop Date: 07/21/17 Status: Discontinued lidocaine (ANES) Route: IV, Drug form: INJ, ONCE, Stop date: 07/19/17 14:48:00 CDT Start Date: 07/19/17 Stop Date: 07/19/17 Status: Completed losartan 25 mg, 1 tab, Route: PO, Drug form: TAB, ONCE, Dosing Weight 91.364, kg, Start d ate: 07/15/17 15:31:00 CDT, Stop date: 07/15/17 15:31:00 CDT Notes: (Same as: Fernanda) Start Date: 07/15/17 Stop Date: 07/15/17 Status: Completed losartan 50 mg, 1 tab, Route: PO, Drug form: TAB, Daily, Dosing Weight 91.364, kg, Start date: 07/13/17 9:00:00 CDT, Stop date: 08/11/17 9:00:00 CDT Notes: (Same as: Fernanda) Start Date: 07/13/17 Stop Date: 07/24/17 Status: Discontinued losartan 25 mg, Route: PO, Drug form: TAB, Daily, Dosing Weight 91.364, kg, Start date: 0 07/16/17 9:00:00 CDT, Duration: 30 day, Stop date: 08/14/17 9:00:00 CDT Start Date: 07/16/17 Stop Date: 07/15/17 Status: Canceled losartan 25 mg, 1 tab, Route: PO, Drug form: TAB, Daily, Dosing Weight 88.324, kg, Priori ty: NOW, Start date: 07/23/17 10:34:00 CDT, Duration: 30 day, Stop date: 7 9:00:00 CDT Notes: (Same as: Fernanda) Start Date: 07/23/17 Stop Date: 07/26/17 Status: Discontinued Lovaza oral capsule 2,000 mg, 2 cap, Route: PO, Drug Form: CAP, Dosing Weight 91.364, kg, BID, Start date: 07/12/17 17:00:00 CDT, Duration: 30 day, Stop date: 08/11/17 9:00:00 CDT Notes: (Same as: MaxEPA, [place] 3 fish oil )Non-Formulary Drug Start Date: 07/12/17 Stop Date: 07/26/17 Status: Discontinued Lovenox 40 mg, 0.4 mL, Route: SUB-Q, Drug form: INJ, [id number], Dosing Weight 88.324, kg, Start date: 07/20/17 21:00:00 CDT, Duration: 30 day, Stop date: 08/18/17 21:00: 00 CDT Notes: (Same as: Lovenox) Start Date: 07/20/17 Stop Date: 07/26/17 Status: Discontinued magnesium oxide 800 mg, 2 tab, Route: PO, Drug form: TAB, PRN, Dosing Weight 91.364, kg, PRN Abn ormal Lab Result, For NON-ICU Patients Only., Start date: 07/12/17 14:48:00 CDT, Duration: 30 day, Stop date: 08/11/17 14:47:00 CDT Notes: (Same as: Mag-Ox 400)Magnesium oxide 440mu=454qg elemental magnesiumDose= ____mg magnesium oxide (___mg elemental magnesium) Start Date: 07/12/17 Stop Date: 07/19/17 Status: Discontinued magnesium oxide 800 mg, 2 tab, Route: PO, Drug form: TAB, PRN, Dosing Weight 88.324, kg, PRN Abn ormal Lab Result, FOR ICU USE ONLY, Start date: 07/19/17 18:37:00 CDT, Duration: 30 day, Stop date: 08/18/17 18:36:00 CDT Notes: (Same as: Mag-Ox 400)Magnesium oxide 617lq=552mb elemental magnesiumDose= ____mg magnesium oxide (___mg elemental magnesium) Start Date: 07/19/17 Stop Date: 07/23/17 Status: Discontinued magnesium oxide 800 mg, 2 tab, Route: PO, Drug form: TAB, PRN, Dosing Weight 88.324, kg, PRN Abn ormal Lab Result, For NON-ICU Patients Only., Start date: 07/23/17 10:49:00 CDT, Duration: 30 day, Stop date: 08/22/17 10:48:00 CDT Notes: (Same as: Mag-Ox 400)Magnesium oxide 436ac=214fk elemental magnesiumDose= ____mg magnesium oxide (___mg elemental magnesium) Start Date: 07/23/17 Stop Date: 07/26/17 Status: Discontinued magnesium sulfate 1 gm, 100 mL, Route: IVPB, Drug form: INJ, PRN, Dosing Weight 91.364, kg, PRN Ab normal Lab Result, For NON-ICU Patients Only., Start date: 07/12/17 14:48:00 CDT , Duration: 30 day, Stop date: 08/11/17 14:47:00 CDT Notes: WASTE: F/P - Sink; [facility] Start Date: 07/12/17 Stop Date: 07/19/17 Status: Discontinued magnesium sulfate 2 gm, 50 mL, Route: IVPB, Drug form: INJ, PRN, Dosing Weight 91.364, kg, PRN Abn ormal Lab Result, For NON-ICU Patients Only., Start date: 07/12/17 14:48:00 CDT, Duration: 30 day, Stop date: 08/11/17 14:47:00 CDT Notes: WASTE: F/P - Sink; [facility] Start Date: 07/12/17 Stop Date: 07/19/17 Status: Discontinued magnesium sulfate 2 gm, 50 mL, Route: IVPB, Drug form: INJ, PRN, Dosing Weight 88.324, kg, PRN Abn ormal Lab Result, Start date: 07/19/17 18:37:00 CDT, Duration: 30 day, Stop date : 08/18/17 18:36:00 CDT, FOR ICU USE ONLY Notes: WASTE: F/P - Sink; [facility] Start Date: 07/19/17 Stop Date: 07/23/17 Status: Discontinued magnesium sulfate 2 gm, 50 mL, Route: IVPB, Drug form: INJ, PRN, Dosing Weight 88.324, kg, PRN Abn ormal Lab Result, For NON-ICU Patients Only., Start date: 07/23/17 10:49:00 CDT, Duration: 30 day, Stop date: 08/22/17 10:48:00 CDT Notes: WASTE: F/P - Sink; [facility] Start Date: 07/23/17 Stop Date: 07/26/17 Status: Discontinued magnesium sulfate 1 gm, 100 mL, Route: IVPB, Drug form: INJ, PRN, Dosing Weight 88.324, kg, PRN Ab normal Lab Result, For NON-ICU Patients Only., Start date: 07/23/17 10:49:00 CDT , Duration: 30 day, Stop date: 08/22/17 10:48:00 CDT Notes: WASTE: F/P - Sink; [facility] Start Date: 07/23/17 Stop Date: 07/26/17 Status: Discontinued magnesium sulfate (ANES) Route: IV, Drug form: INJ, ONCE, Stop date: 07/19/17 17:58:00 CDT Start Date: 07/19/17 Stop Date: 07/19/17 Status: Completed metoprolol 5 mg/5 ml INJ 5 mg, 5 mL, Route: IVP, Drug form: INJ, Q2MIN, Dosing Weight 88.324, kg, PRN Arr hythmias, Start date: 07/22/17 23:02:00 CDT, Duration: 3 doses or times, Stop da te: Limited # of times Notes: (Same as: Lopressor)Push over 2 minutes Start Date: 07/22/17 Stop Date: 07/23/17 Status: Completed midazolam (ANES) Route: IV, Drug form: SOLN, ONCE, Stop date: 07/19/17 14:43:00 CDT Start Date: 07/19/17 Stop Date: 07/19/17 Status: Completed mineral oil 100 mL, Route: GA, Drug Form: LIQ, ONCE, Start date: 07/21/17 8:58:00 CDT, Stop date: 07/21/17 8:58:00 CDT Notes: (Same as:Mineral Oil, Light) Start Date: 07/21/17 Stop Date: 07/21/17 Status: Completed MiraLax 17 gm, 1 pkt, Route: PO, Drug form: PWDR, BID, Dosing Weight 88.324, kg, PRN Con stipation, Start date: 07/21/17 9:00:00 CDT, Stop date: 08/19/17 17:00:00 CDT Notes: Dissolve in 8 oz of water or juice.(Same as: Miralax) Start Date: 07/21/17 Stop Date: 07/26/17 Status: Discontinued MiraLax 17 gm, Route: PO, Daily, Dosing Weight 88.324, kg, Start date: 07/21/17 9:00:00 CDT, Duration: 30 day, Stop date: 08/19/17 9:00:00 CDT Start Date: 07/21/17 Stop Date: 07/21/17 Status: Discontinued naloxone 0.04 mg, 0.1 mL, Route: IVP, Drug form: INJ, Q2MIN, Dosing Weight 88.324, kg, GA N Narcotic Reversal, Start date: 07/20/17 1:28:00 CDT, Duration: 30 day, Stop da te: 08/19/17 1:27:00 CDT Notes: Same as Narcan Start Date: 07/20/17 Stop Date: 07/23/17 Status: Discontinued niCARdipine 40 mg/ NS 200 ml IV Soln (premix) 40 mg 40 mg, 200 mL, Rate: Titrate, Start Dose: 5 mg/hr, Titration: 2.5 mg/hr every 15 minutes, Goal(s): SBP <130, Max Dose: 15 mg/hr, Route: IV, Dosing Weight 88.324 kg, Total Volume: 200, Start date: 07/19/17 20:15:00 CDT, Duration: 30 day, Stop date: .. Notes: Same as: CardeneConcentration: (0.2 mg /1 ml ) Start Date: 07/19/17 Stop Date: 07/20/17 Status: Discontinued ocular lubricant 1 appl, Route: BOTH EYES, Q6H, Drug form: OINT, Start date: 07/20/17 0:00:00 CDT , Duration: 30 day, Stop date: 08/18/17 18:00:00 CDT Notes: (Same as: Lacri-Lube, Duratears Naturale, Artificial Tears, and Tears Aga in ) Start Date: 07/20/17 Stop Date: 07/20/17 Status: Discontinued pantoprazole 40 mg, 1 tab, Route: PO, Drug form: ECTAB, Daily, Dosing Weight 88.324, kg, Star t date: 07/20/17 9:00:00 CDT, Duration: 30 day, Stop date: 08/18/17 9:00:00 CDT Notes: Tablet should not be chewed or crushed.(Same as: Protonix) Start Date: 07/20/17 Stop Date: 07/20/17 Status: Discontinued Plavix 75 mg, 1 tab, Route: PO, Drug form: TAB, Daily, Dosing Weight 88.324, kg, Start date: 07/20/17 10:00:00 CDT, Duration: 30 day, Stop date: 08/19/17 9:00:00 CDT Notes: (Same As: Plavix) Start Date: 07/20/17 Stop Date: 07/21/17 Status: Discontinued Pletal 100 mg, 2 tab, Route: PO, Drug form: TAB, BID, Dosing Weight 91.364, kg, Start d ate: 07/17/17 9:00:00 CDT, Duration: 30 day, Stop date: 08/15/17 17:00:00 CDT Notes: Non-Formulary Drug. (Same As: Pletal) Start Date: 07/17/17 Stop Date: 07/26/17 Status: Discontinued potassium chloride 10 mEq, 50 mL, Route: IVPB, Drug form: INJ, PRN, Dosing Weight 88.324, kg, PRN A bnormal Lab Result, For NON-ICU Patients Only, Start date: 07/23/17 10:49:00 CDT , Duration: 30 day, Stop date: 08/22/17 10:48:00 CDT Notes: (Same as: KCL) Infuse over 2 hours. Start Date: 07/23/17 Stop Date: 07/26/17 Status: Discontinued potassium chloride 20 mEq, 1 tab, Route: PO, Drug form: ERTAB, PRN, Dosing Weight 88.324, kg, PRN A bnormal Lab Result, For NON-ICU Patients Only, Start date: 07/23/17 10:49:00 CDT , Duration: 30 day, Stop date: 08/22/17 10:48:00 CDT Notes: (Same as: K-Dur 20)"Do Not Crush" With food and full glass of water Start Date: 07/23/17 Stop Date: 07/26/17 Status: Discontinued potassium chloride 20 mEq, 15 mL, Route: NJ, Drug form: LIQ, PRN, Dosing Weight 88.324, kg, PRN Abn ormal Lab Result, For NON-ICU Patients Only, Start date: 07/23/17 10:49:00 CDT, Duration: 30 day, Stop date: 08/22/17 10:48:00 CDT Notes: (Same as: Potassium Chloride) Start Date: 07/23/17 Stop Date: 07/26/17 Status: Discontinued potassium chloride 20 mEq, 15 mL, Route: NJ, Drug form: LIQ, PRN, Dosing Weight 91.364, kg, PRN Abn ormal Lab Result, For NON-ICU Patients Only, Start date: 07/12/17 14:48:00 CDT, Duration: 30 day, Stop date: 08/11/17 14:47:00 CDT Notes: (Same as: Potassium Chloride) Start Date: 07/12/17 Stop Date: 07/19/17 Status: Discontinued potassium chloride 10 mEq, 50 mL, Route: IVPB, Drug form: INJ, PRN, Dosing Weight 91.364, kg, PRN A bnormal Lab Result, For NON-ICU Patients Only, Start date: 07/12/17 14:48:00 CDT , Duration: 30 day, Stop date: 08/11/17 14:47:00 CDT Notes: (Same as: KCL) Infuse over 2 hours. Start Date: 07/12/17 Stop Date: 07/19/17 Status: Discontinued potassium chloride 20 mEq, 1 tab, Route: PO, Drug form: ERTAB, PRN, Dosing Weight 91.364, kg, PRN A bnormal Lab Result, For NON-ICU Patients Only, Start date: 07/12/17 14:48:00 CDT , Duration: 30 day, Stop date: 08/11/17 14:47:00 CDT Notes: (Same as: K-Dur 20)"Do Not Crush" With food and full glass of water Start Date: 07/12/17 Stop Date: 07/19/17 Status: Discontinued potassium chloride 10 mEq, 50 mL, Route: IVPB, Drug form: INJ, PRN, Dosing Weight 88.324, kg, PRN A bnormal Lab Result, Via peripheral line, Start date: 07/19/17 18:37:00 CDT, Dura tion: 30 day, Stop date: 08/18/17 18:36:00 CDT, FOR ICU USE ONLY Notes: (Same as: KCL) Infuse over 2 hours. Start Date: 07/19/17 Stop Date: 07/23/17 Status: Discontinued potassium chloride 20 mEq, 1 tab, Route: PO, Drug form: ERTAB, PRN, Dosing Weight 88.324, kg, PRN A bnormal Lab Result, Start date: 07/19/17 18:37:00 CDT, Duration: 30 day, Stop da te: 08/18/17 18:36:00 CDT, FOR ICU USE ONLY Notes: (Same as: K-Dur 20)"Do Not Crush" With food and full glass of water Start Date: 07/19/17 Stop Date: 07/23/17 Status: Discontinued potassium chloride 20 mEq, 15 mL, Route: NJ, Drug form: LIQ, PRN, Dosing Weight 88.324, kg, PRN Abn ormal Lab Result, Start date: 07/19/17 18:37:00 CDT, Duration: 30 day, Stop date : 08/18/17 18:36:00 CDT, FOR ICU USE ONLY Notes: (Same as: Potassium Chloride) Start Date: 07/19/17 Stop Date: 07/23/17 Status: Discontinued potassium chloride 20 mEq, 100 mL, Route: IVPB, Drug form: INJ, PRN, Dosing Weight 88.324, kg, PRN Abnormal Lab Result, Via central line, Start date: 07/19/17 18:37:00 CDT, Durati on: 30 day, Stop date: 08/18/17 18:36:00 CDT, FOR ICU USE ONLY Notes: (Same as: KCL) Infuse no faster than 10 mEq/hr if given peripherally. Start Date: 07/19/17 Stop Date: 07/23/17 Status: Discontinued potassium phosphate + sodium chloride 0.9% INJ 250 mL 15 mmol, 5 mL, Route: IVPB, PRN, Dosing Weight 91.364, kg, PRN Abnormal Lab Resu lt, For NON-ICU Patients Only., Start date: 07/12/17 14:48:00 CDT, Duration: 30 day, Stop date: 08/11/17 14:47:00 CDT Notes: (Same as: K Phosphate.) 1 mMol phoshate has 1.47 mEq potassium Infuse o elyssa 4 hours Start Date: 07/12/17 Stop Date: 07/19/17 Status: Discontinued potassium phosphate + sodium chloride 0.9% INJ 250 mL 30 mmol, 10 mL, Route: IVPB, PRN, Dosing Weight 91.364, kg, PRN Abnormal Lab Res ult, For NON-ICU Patients Only., Start date: 07/12/17 14:48:00 CDT, Duration: 30 day, Stop date: 08/11/17 14:47:00 CDT Notes: (Same as: K Phosphate.) 1 mMol phoshate has 1.47 mEq potassium Infuse o elyssa 4 hours Start Date: 07/12/17 Stop Date: 07/19/17 Status: Discontinued potassium phosphate + sodium chloride 0.9% INJ 250 mL 45 mmol, 15 mL, Route: IVPB, PRN, Dosing Weight 88.324, kg, PRN Abnormal Lab Res ult, Start date: 07/19/17 18:37:00 CDT, Duration: 30 day, Stop date: 08/18/17 18 :36:00 CDT, FOR ICU USE ONLY Notes: (Same as: K Phosphate.) 1 mMol phoshate has 1.47 mEq potassium Infuse o elyssa 4 hours Start Date: 07/19/17 Stop Date: 07/23/17 Status: Discontinued potassium phosphate + sodium chloride 0.9% INJ 250 mL 30 mmol, 10 mL, Route: IVPB, PRN, Dosing Weight 88.324, kg, PRN Abnormal Lab Res ult, Start date: 07/19/17 18:37:00 CDT, Duration: 30 day, Stop date: 08/18/17 18 :36:00 CDT, FOR ICU USE ONLY Notes: (Same as: K Phosphate.) 1 mMol phoshate has 1.47 mEq potassium Infuse o elyssa 4 hours Start Date: 07/19/17 Stop Date: 07/23/17 Status: Discontinued potassium phosphate + sodium chloride 0.9% INJ 250 mL 15 mmol, 5 mL, Route: IVPB, PRN, Dosing Weight 88.324, kg, PRN Abnormal Lab Resu lt, Start date: 07/19/17 18:37:00 CDT, Duration: 30 day, Stop date: 08/18/17 18: 36:00 CDT, FOR ICU USE ONLY Notes: (Same as: K Phosphate.) 1 mMol phoshate has 1.47 mEq potassium Infuse o elyssa 4 hours Start Date: 07/19/17 Stop Date: 07/23/17 Status: Discontinued potassium phosphate + sodium chloride 0.9% INJ 250 mL 30 mmol, 10 mL, Route: IVPB, PRN, Dosing Weight 88.324, kg, PRN Abnormal Lab Res ult, For NON-ICU Patients Only., Start date: 07/23/17 10:49:00 CDT, Duration: 30 day, Stop date: 08/22/17 10:48:00 CDT Notes: (Same as: K Phosphate.) 1 mMol phoshate has 1.47 mEq potassium Infuse o elyssa 4 hours Start Date: 07/23/17 Stop Date: 07/26/17 Status: Discontinued potassium phosphate + sodium chloride 0.9% INJ 250 mL 15 mmol, 5 mL, Route: IVPB, PRN, Dosing Weight 88.324, kg, PRN Abnormal Lab Resu lt, For NON-ICU Patients Only., Start date: 07/23/17 10:49:00 CDT, Duration: 30 day, Stop date: 08/22/17 10:48:00 CDT Notes: (Same as: K Phosphate.) 1 mMol phoshate has 1.47 mEq potassium Infuse o elyssa 4 hours Start Date: 07/23/17 Stop Date: 07/26/17 Status: Discontinued potassium phosphate-sodium phosphate 250 mg-280 mg-160 mg oral powder for recons titution 2 pkt, Route: PO, Drug Form: PDR/REC, Dosing Weight 88.324, kg, PRN, PRN Abnorma l Lab Result, For NON-ICU Patients Only, Start date: 07/23/17 10:49:00 CDT, Dura tion: 30 day, Stop date: 08/22/17 10:48:00 CDT Notes: (Same as: Phos-NaK) Each 1.5 gm pkt has 250mg phosphorous. Mix w/2.5oz w ater and stir. Start Date: 07/23/17 Stop Date: 07/26/17 Status: Discontinued potassium phosphate-sodium phosphate 250 mg-280 mg-160 mg oral powder for recons titution 2 pkt, Route: PO, Drug Form: PDR/REC, Dosing Weight 91.364, kg, PRN, PRN Abnorma l Lab Result, For NON-ICU Patients Only, Start date: 07/12/17 14:48:00 CDT, Dura tion: 30 day, Stop date: 08/11/17 14:47:00 CDT Notes: (Same as: Phos-NaK) Each 1.5 gm pkt has 250mg phosphorous. Mix w/2.5oz w ater and stir. Start Date: 07/12/17 Stop Date: 07/19/17 Status: Discontinued potassium phosphate-sodium phosphate 250 mg-280 mg-160 mg oral powder for recons titution 2 pkt, Route: PO, Drug Form: PDR/REC, Dosing Weight 88.324, kg, PRN, PRN Abnorma l Lab Result, FOR ICU USE ONLY, Start date: 07/19/17 18:37:00 CDT, Duration: 30 day, Stop date: 08/18/17 18:36:00 CDT Notes: (Same as: Phos-NaK) Each 1.5 gm pkt has 250mg phosphorous. Mix w/2.5oz w ater and stir. Start Date: 07/19/17 Stop Date: 07/23/17 Status: Discontinued propofol (ANES) Route: IV, Drug form: INJ, ONCE, Stop date: 07/19/17 14:43:00 CDT Start Date: 07/19/17 Stop Date: 07/19/17 Status: Completed protamine (ANES) Route: IV, Drug form: INJ, ONCE, Stop date: 07/19/17 18:14:00 CDT Start Date: 07/19/17 Stop Date: 07/19/17 Status: Completed Reglan 10 mg, 2 mL, Route: IVP, Drug form: INJ, Q6H, Dosing Weight 88.324, kg, Start da te: 07/20/17 12:00:00 CDT, Duration: 3 day, Stop date: 07/23/17 6:00:00 CDT Notes: (Same as: Reglan) Start Date: 07/20/17 Stop Date: 07/23/17 Status: Completed Robaxin 500 mg, 1 tab, Route: PO, Drug form: TAB, TID, Dosing Weight 88.324, kg, PRN Sridevi n Score 4-6, Start date: 07/23/17 15:15:00 CDT, Duration: 30 day, Stop date: 04/03 15:14:00 CDT Notes: (Same as:Robaxin) Start Date: 07/23/17 Stop Date: 07/26/17 Status: Discontinued Robaxin + sodium chloride 0.9% INJ 100 mL 1,000 mg, 10 mL, Route: IV, Drug form: INJ, Q8H, Dosing Weight 88.324, kg, Start date: 07/20/17 16:00:00 CDT, Duration: 30 day, Stop date: 08/19/17 8:00:00 CDT Notes: (Same as:Robaxin) Start Date: 07/20/17 Stop Date: 07/23/17 Status: Discontinued rocuronium (ANES) Route: IV, Drug form: INJ, ONCE, Stop date: 07/19/17 14:43:00 CDT Start Date: 07/19/17 Stop Date: 07/19/17 Status: Completed rosuvastatin 20 mg, 2 tab, Route: PO, Drug form: TAB, Bedtime, Dosing Weight 91.364, kg, Star t date: 07/12/17 21:00:00 CDT, Stop date: 08/10/17 21:00:00 CDT Notes: (Same As: Crestor) Start Date: 07/12/17 Stop Date: 07/12/17 Status: Discontinued SMOG Enema 300 ml, Route: GA, Dosing Weight 88.324, kg, ONCE, Start date: 07/21/17 8:54:00 CDT, Duration: 1 doses or times, Stop date: 07/21/17 8:54:00 CDT Start Date: 07/21/17 Stop Date: 07/21/17 Status: Discontinued sodium chloride 0.9% 1000 ml INJ (ANES) Route: IV, Total Volume: 1,000, Start date: 07/19/17 14:00:00 CDT, Stop date: 15:00:00 CDT Start Date: 07/19/17 Stop Date: 07/19/17 Status: Completed sodium chloride 0.9% 1000 ml INJ 1000 mL 1,000 mL, Rate: 125 ml/hr, Infuse over: 8 hr, Route: IV, Dosing Weight 91.364 kg , Total Volume: 1,000, Start date: 07/12/17 7:36:00 CDT, Duration: 1 day, Stop d ate: 07/13/17 15:01:00 CDT Start Date: 07/12/17 Stop Date: 07/13/17 Status: Completed sodium chloride 0.9% 500 ml INJ (ANES) + tranexamic acid (ANES) (ANES) Route: IV, Drug form: INJ, Start date: 07/19/17 14:45:00 CDT, Stop date: 7 15:45:00 CDT Start Date: 07/19/17 Stop Date: 07/19/17 Status: Completed Sodium Chloride 0.9% IV GA, 0 ml/hr, ONCE, Start date: 07/21/17 8:58:00 CDT, 100 ml Start Date: 07/21/17 Stop Date: 07/21/17 Status: Completed sodium phosphate 30 mmol, Route: IVPB, PRN, Dosing Weight 88.324, kg, PRN Abnormal Lab Result, St art date: 07/19/17 18:37:00 CDT, Duration: 30 day, Stop date: 08/18/17 18:36:00 CDT, FOR ICU USE ONLY Start Date: 07/19/17 Stop Date: 07/19/17 Status: Discontinued sodium phosphate 15 mmol, Route: IVPB, PRN, Dosing Weight 88.324, kg, PRN Abnormal Lab Result, St art date: 07/19/17 18:37:00 CDT, Duration: 30 day, Stop date: 08/18/17 18:36:00 CDT, FOR ICU USE ONLY Start Date: 07/19/17 Stop Date: 07/19/17 Status: Discontinued sodium phosphate 45 mmol, Route: IVPB, PRN, Dosing Weight 88.324, kg, PRN Abnormal Lab Result, St art date: 07/19/17 18:37:00 CDT, Duration: 30 day, Stop date: 08/18/17 18:36:00 CDT, FOR ICU USE ONLY Start Date: 07/19/17 Stop Date: 07/19/17 Status: Discontinued sodium phosphate + sodium chloride 0.9% INJ 250 mL 30 mmol, 10 mL, Route: IVPB, PRN, Dosing Weight 91.364, kg, PRN Abnormal Lab Res ult, For NON-ICU Patients Only., Start date: 07/12/17 14:48:00 CDT, Duration: 30 day, Stop date: 08/11/17 14:47:00 CDT Start Date: 07/12/17 Stop Date: 07/19/17 Status: Discontinued sodium phosphate + sodium chloride 0.9% INJ 250 mL 15 mmol, 5 mL, Route: IVPB, PRN, Dosing Weight 91.364, kg, PRN Abnormal Lab Resu lt, For NON-ICU Patients Only., Start date: 07/12/17 14:48:00 CDT, Duration: 30 day, Stop date: 08/11/17 14:47:00 CDT Start Date: 07/12/17 Stop Date: 07/19/17 Status: Discontinued sodium phosphate + sodium chloride 0.9% INJ 250 mL 30 mmol, 10 mL, Route: IVPB, PRN, Dosing Weight 88.324, kg, PRN Abnormal Lab Res ult, For NON-ICU Patients Only., Start date: 07/23/17 10:49:00 CDT, Duration: 30 day, Stop date: 08/22/17 10:48:00 CDT Start Date: 07/23/17 Stop Date: 07/26/17 Status: Discontinued sodium phosphate + sodium chloride 0.9% INJ 250 mL 15 mmol, 5 mL, Route: IVPB, PRN, Dosing Weight 88.324, kg, PRN Abnormal Lab Resu lt, For NON-ICU Patients Only., Start date: 07/23/17 10:49:00 CDT, Duration: 30 day, Stop date: 08/22/17 10:48:00 CDT Start Date: 07/23/17 Stop Date: 07/26/17 Status: Discontinued tramadol 50 mg, 1 tab, Route: PO, Drug form: TAB, Q8Hnow, Dosing Weight 88.324, kg, PRN P ain Score 4-6, Start date: 07/20/17 10:30:00 CDT, Stop date: 08/19/17 2:30:00 CD T Notes: Not to exceed 400mg/day. (Same As: Ultram) Start Date: 07/20/17 Stop Date: 07/26/17 Status: Discontinued tramadol 50 mg oral tablet 50 mg=1 tab, PO, Q8Hnow, PRN Pain Score 4-6, X 30 day, # 60 tab, 0 Refill(s) Start Date: 07/26/17 Stop Date: 08/25/17 Status: Ordered Tylenol 1,000 mg, 2 tab, Route: PO, Drug form: TAB, Q6H, Dosing Weight 88.324, kg, PRN P ain 4-6/Temp > 100.4 F, Priority: NOW, Start date: 07/23/17 10:38:00 CDT, Duration: 2 day, Stop date: 07/25/17 10:37:00 CDT Notes: Max acetaminophen 4000 mg/day (4 gm/day). (Same as: Tylenol Extra Streng th) Start Date: 07/23/17 Stop Date: 07/25/17 Status: Completed vancomycin (ANES) (ANES) Route: IV, Drug form: INJ, Start date: 07/19/17 14:51:00 CDT, Stop date: 7 15:51:00 CDT Start Date: 07/19/17 Stop Date: 07/19/17 Status: Completed vancomycin (SCIP) 1.25 gm, 250 mL, Route: IVPB, Drug form: INJ, [id number], Dosing Weight 88.324, kg, Time Critical Medication, Start date: 07/20/17 3:00:00 CDT, Duration: 2 doses or times, Stop date: 07/20/17 15:00:00 CDT, ABX Indication: Surgical Prophylaxis Notes: TIME CRITICAL MEDICATIONSame as: Vancocin-NS (premixed)Infusion rate< 1000 mg: infuse over 1 [id number] - 1500 mg: infuse over 1.5 [id number] - 2000 mg: infuse over 2 hours> 2001 mg: infuse over 2.5 hours Start Date: 07/20/17 Stop Date: 07/20/17 Status: Completed Zofran 4 mg, Route: IVP, Drug form: INJ, ONCE, Dosing Weight 88.324, kg, Priority: NOW, Start date: 07/20/17 0:24:00 CDT, Stop date: 07/20/17 0:24:00 CDT Start Date: 07/20/17 Stop Date: 07/20/17 Status: Completed Results BLOOD BANK RESULTS 1 2 3 Most recent to oldest [Reference Range]: A POS *Unknown* (07/25/17 2:56 AM) A POS *Unknown* (07/22/17 2:12 AM) A POS *Unknown* (07/18/17 2:55 PM) ABO/Rh Negative (07/25/17 2:56 AM) Negative (07/22/17 2:12 AM) Negative (07/18/17 2:55 PM) Antibody Scrn Product available (07/18/17 12:31 PM) FFP product FT (07/20/17 10:20 AM) Product available (07/18/17 12:31 PM) Platelet product Product available (07/22/17 9:00 AM) Product available (07/21/17 8:53 AM) Product available (07/20/17 11:51 AM) RBC product ELECTROLYTES 1 2 3 Most recent to oldest [Reference Range]: 140 mEq/L (07/26/17 2:26 AM) 140 mEq/L (07/25/17 2:56 AM) 140 mEq/L (07/24/17 4:37 AM) Sodium Lvl [135-145 mEq/L] 3.5 mEq/L (07/26/17 2:26 AM) 4.3 mEq/L (07/25/17 2:56 AM) 3.9 mEq/L (07/24/17 4:37 AM) Potassium Lvl [3.5-5.1 mEq/L] 111 mEq/L *HI* (07/26/17 2:26 AM) 110 mEq/L *HI* (07/25/17 2:56 AM) 110 mEq/L *HI* (07/24/17 4:37 AM) Chloride Lvl [95-109 mEq/L] 19 mEq/L *LOW* (07/26/17 2:26 AM) 21 mEq/L *LOW* (07/25/17 2:56 AM) 20 mEq/L *LOW* (07/24/17 4:37 AM) CO2 [24-32 mEq/L] 13.5 mEq/L (07/26/17 2:26 AM) 13.3 mEq/L (07/25/17 2:56 AM) 13.9 mEq/L (07/24/17 4:37 AM) AGAP [10.0-20.0 mEq/L] CHEM PANEL 1 2 3 Most recent to oldest [Reference Range]: 0.84 mg/dL (07/26/17 2:26 AM) 0.88 mg/dL (07/25/17 2:56 AM) 0.86 mg/dL (07/24/17 4:37 AM) Creatinine Lvl [0.50-1.40 mg/dL] 87 mL/min/1.73m2 1 *NA* (07/26/17 2:26 AM) 86 mL/min/1.73m2 2 *NA* (07/25/17 2:56 AM) 87 mL/min/1.73m2 3 *NA* (07/24/17 4:37 AM) eGFR 12 mg/dL (07/26/17 2:26 AM) 11 mg/dL (07/25/17 2:56 AM) 16 mg/dL (07/24/17 4:37 AM) BUN [7-22 mg/dL] 15 (07/19/17 7:15 PM) 13 (07/13/17 2:43 AM) B/C Ratio [6-25] 116 mg/dL *HI* (07/26/17 2:26 AM) 84 mg/dL (07/25/17 2:56 AM) 81 mg/dL (07/24/17 4:37 AM) Glucose Lvl [70-99 mg/dL] 4.8 g/dL *LOW* (07/19/17 7:15 PM) 6.9 g/dL (07/13/17 2:43 AM) Total Protein [6.4-8.4 g/dL] 2.8 g/dL *LOW* (07/19/17 7:15 PM) 3.3 g/dL *LOW* (07/13/17 2:43 AM) Albumin Lvl [3.5-5.0 g/dL] 2.0 g/dL *LOW* (07/19/17 7:15 PM) 3.6 g/dL (07/13/17 2:43 AM) Globulin [2.7-4.2 g/dL] 1.4 (07/19/17 7:15 PM) 0.9 (07/13/17 2:43 AM) A/G Ratio [0.7-1.6] 7.4 mg/dL *LOW* (07/26/17 2:26 AM) 7.8 mg/dL *LOW* (07/25/17 2:56 AM) 7.6 mg/dL *LOW* (07/24/17 4:37 AM) Calcium Lvl [8.5-10.5 mg/dL] 3.7 mg/dL (07/25/17 2:56 AM) 2.1 mg/dL *LOW* (07/24/17 4:37 AM) 2.3 mg/dL *LOW* (07/23/17 12:59 AM) Phosphorus [2.5-4.5 mg/dL] 1.9 mg/dL (07/25/17 2:56 AM) 2.1 mg/dL (07/24/17 4:37 AM) 2.3 mg/dL (07/23/17 12:59 AM) Magnesium Lvl [1.8-2.4 mg/dL] 23 unit/L (07/19/17 7:15 PM) 30 unit/L (07/13/17 2:43 AM) ALT [0-65 unit/L] 34 unit/L (07/19/17 7:15 PM) 24 unit/L (07/13/17 2:43 AM) AST [0-37 unit/L] 30 unit/L *LOW* (07/19/17 7:15 PM) 35 unit/L *LOW* (07/13/17 2:43 AM) Alk Phos [39-136 unit/L] 0.3 mg/dL (07/19/17 7:15 PM) 0.4 mg/dL (07/13/17 2:43 AM) Bili Total [0.2-1.3 mg/dL] 1Result Comment: The eGFR is calculated using [...] be mul tiplied by the estimated BMI. 2Result Comment: The eGFR is calculated using the [...] be mul tiplied by the estimated BMI. 3Result Comment: The eGFR is calculated using the [...] be mul tiplied by the estimated BMI. LIPIDS 1 2 3 Most recent to oldest [Reference Range]: 3.04 *LOW* (07/19/17 7:15 PM) CHD Risk [4.00-7.30] 82 mg/dL (07/19/17 7:15 PM) Chol [<=199 mg/dL] 112 mg/dL (07/19/17 7:15 PM) Trig [<=149 mg/dL] 27 mg/dL *LOW* (07/19/17 7:15 PM) HDL [>=61 mg/dL] 33 mg/dL (07/19/17 7:15 PM) LDL (Calculated) [<=99 mg/dL] 22 *NA* (07/19/17 7:15 PM) VLDL SPECIAL CHEMISTRY 1 2 3 Most recent to oldest [Reference Range]: 8.7 % *HI* (07/13/17 2:43 AM) Hgb A1C [<=5.6 %] PARATHYROID PROFILE 1 2 3 Most recent to oldest [Reference Range]: 1.14 mMol/L (07/25/17 2:56 AM) 1.06 mMol/L (07/23/17 12:59 AM) 1.13 mMol/L (07/22/17 2:12 AM) Ca Ion WB [1.05-1.25 mMol/L] 1.12 mMol/L (07/25/17 2:56 AM) 1.07 mMol/L (07/23/17 12:59 AM) 1.10 mMol/L (07/22/17 2:12 AM) Ca Norm WB [1.05-1.25 mMol/L] URINE AND STOOL 1 2 3 Most recent to oldest [Reference Range]: Clear (07/24/17 12:52 PM) UA Turbidity [Clear] Yellow *NA* (07/24/17 12:52 PM) UA Color [Yellow] 6.5 (07/24/17 12:52 PM) UA pH [5.0-8.0] 1.013 (07/24/17 12:52 PM) UA Spec Grav [<=1.030] Negative mg/dL *NA* (07/24/17 12:52 PM) UA Glucose [Negative mg/dL] Negative (07/24/17 12:52 PM) UA Blood [Negative] Negative mg/dL *NA* (07/24/17 12:52 PM) UA Ketones [Negative mg/dL] 20 mg/dL *ABN* (07/24/17 12:52 PM) UA Protein [Negative mg/dL] 4.0 mg/dL *HI* (07/24/17 12:52 PM) UA Urobilinogen [0.1-1.0 mg/dL] Negative *NA* (07/24/17 12:52 PM) UA Bili [Negative] Negative (07/24/17 12:52 PM) UA Leuk Est [Negative] Negative (07/24/17 12:52 PM) UA Nitrite [Negative] 1 /HPF (07/24/17 12:52 PM) UA WBC [0-5 /HPF] RARE *NA* (07/24/17 12:52 PM) UA Sq Epi Few /LPF *NA* (07/24/17 12:52 PM) UA Mucus [None Seen /LPF] Performed *NA* (07/24/17 12:52 PM) Micro? IMMUNOLOGY 1 2 3 Most recent to oldest [Reference Range]: 23.6 mg/L *HI* (07/24/17 9:01 AM) CRP [<=2.9 mg/L] HEMATOLOGY 1 2 3 Most recent to oldest [Reference Range]: 12.9 K/CMM *HI* (07/26/17 2:26 AM) 15.2 K/CMM *HI* (07/25/17 2:56 AM) 18.4 K/CMM *HI* (07/24/17 4:37 AM) WBC [3.7-10.4 K/CMM] 3.06 M/CMM *LOW* (07/26/17 2:26 AM) 2.99 M/CMM *LOW* (07/25/17 2:56 AM) 2.92 M/CMM *LOW* (07/24/17 4:37 AM) RBC [4.70-6.10 M/CMM] 9.4 g/dL *LOW* (07/26/17 2:26 AM) 9.0 g/dL *LOW* (07/25/17 2:56 AM) 8.8 g/dL *LOW* (07/24/17 4:37 AM) Hgb [14.0-18.0 g/dL] 27.3 % *LOW* (07/26/17 2:26 AM) 26.6 % *LOW* (07/25/17 2:56 AM) 25.6 % *LOW* (07/24/17 4:37 AM) Hct [42.0-54.0 %] 89.2 fL (07/26/17 2:26 AM) 88.9 fL (07/25/17 2:56 AM) 87.7 fL (07/24/17 4:37 AM) MCV [80.0-94.0 fL] 30.8 pg (07/26/17 2:26 AM) 30.1 pg (07/25/17 2:56 AM) 30.1 pg (07/24/17 4:37 AM) MCH [27.0-31.0 pg] 34.6 g/dL (07/26/17 2:26 AM) 33.9 g/dL (07/25/17 2:56 AM) 34.3 g/dL (07/24/17 4:37 AM) MCHC [32.0-36.0 g/dL] 14.9 % *HI* (07/26/17 2:26 AM) 14.7 % *HI* (07/25/17 2:56 AM) 14.7 % *HI* (07/24/17 4:37 AM) RDW [11.5-14.5 %] 206 K/CMM (07/26/17 2:26 AM) 191 K/CMM (07/25/17 2:56 AM) 184 K/CMM (07/24/17 4:37 AM) Platelet [133-450 K/CMM] 9.6 fL (07/26/17 2:26 AM) 9.1 fL (07/25/17 2:56 AM) 9.5 fL (07/24/17 4:37 AM) MPV [7.4-10.4 fL] 76.6 % *HI* (07/26/17 2:26 AM) 79.6 % *HI* (07/25/17 2:56 AM) 77.2 % *HI* (07/24/17 4:37 AM) Segs [45.0-75.0 %] 14.0 % *LOW* (07/26/17 2:26 AM) 12.7 % *LOW* (07/25/17 2:56 AM) 14.6 % *LOW* (07/24/17 4:37 AM) Lymphocytes [20.0-40.0 %] 8.1 % (07/26/17 2:26 AM) 7.0 % (07/25/17 2:56 AM) 7.5 % (07/24/17 4:37 AM) Monocytes [2.0-12.0 %] 1.1 % (07/26/17 2:26 AM) 0.5 % (07/25/17 2:56 AM) 0.6 % (07/24/17 4:37 AM) Eosinophils [0.0-4.0 %] 0.2 % (07/26/17 2:26 AM) 0.2 % (07/25/17 2:56 AM) 0.1 % (07/24/17 4:37 AM) Basophils [0.0-1.0 %] 9.9 K/CMM *HI* (07/26/17 2:26 AM) 12.1 K/CMM *HI* (07/25/17 2:56 AM) 14.2 K/CMM *HI* (07/24/17 4:37 AM) Segs-Bands # [1.5-8.1 K/CMM] 1.8 K/CMM (07/26/17 2:26 AM) 1.9 K/CMM (07/25/17 2:56 AM) 2.7 K/CMM (07/24/17 4:37 AM) Lymphocytes # [1.0-5.5 K/CMM] 1.0 K/CMM *HI* (07/26/17 2:26 AM) 1.1 K/CMM *HI* (07/25/17 2:56 AM) 1.4 K/CMM *HI* (07/24/17 4:37 AM) Monocytes # [0.0-0.8 K/CMM] 0.1 K/CMM (07/26/17 2:26 AM) 0.1 K/CMM (07/25/17 2:56 AM) 0.1 K/CMM (07/24/17 4:37 AM) Eosinophils # [0.0-0.5 K/CMM] 0.1 K/CMM (07/19/17 1:48 AM) 0.1 K/CMM (07/12/17 7:42 AM) Basophils # [0.0-0.2 K/CMM] 1+ *ABN* (07/25/17 2:56 AM) Anisocyte [None Seen] slight *NA* (07/25/17 2:56 AM) Polychrom 45 mm/hr *HI* (07/24/17 9:01 AM) Sed Rate [0-15 mm/hr] 15.1 seconds *HI* (07/25/17 2:56 AM) 15.8 seconds *HI* (07/23/17 12:59 AM) 17.6 seconds *HI* (07/22/17 2:12 AM) PT [12.0-14.7 seconds] 1.17 (07/25/17 2:56 AM) 1.23 *HI* (07/23/17 12:59 AM) 1.42 *HI* (07/22/17 2:12 AM) INR [0.85-1.17] 34.7 seconds (07/25/17 2:56 AM) 33.3 seconds (07/23/17 12:59 AM) 35.1 seconds (07/22/17 2:12 AM) PTT [22.9-35.8 seconds] 264 PRU *NA* (07/13/17 2:43 AM) Plav Effect Plt MOLECULAR DIAGNOSTIC 1 2 3 Most recent to oldest [Reference Range]: Negative (07/24/17 9:19 PM) C difficile DNA [Negative] BACTERIAL - SEROLOGY 1 2 3 Most recent to oldest [Reference Range]: Negative (07/19/17 7:16 PM) MRSA by PCR Immunizations Not Given Vaccine Date Status Refusal Reason pneumococcal 23-valent vaccine 04/21/16 Not Given Patient Refuses Procedures Procedure Date Related Diagnosis Body Site MELVIN - Insertion of stent into common iliac artery Femoral-popliteal artery bypass graft Prostatectomy Social History Social History Type Response Alcohol Never Smoking Status Never smoker; Previous treatment: None; Ready to change: No; Concerns about tobacco use in household: No; Exposure to Tobacco Smoke None; Cigarette Smoking Last 365 Days No; Reg Smoking Cessation Counseling No Assessment and Plan Extracted from: Title: [facility] Author: Billy Swift MD Date: 07/26/17 Cardiology Progress Note * Impression and Plan IMPRESSION: 1. Severe atherosclerotic coronary artery disease as described above in a patient with ostial LAD involvement and history of diabetes as well as ostial RCA and circ disease. LVEF >70%- S/P aortocoronary bypass surgery w/ KENNEDY LAD A "Y" GRAFT TO RSV GOING TO OM1 and RSV-PDA on 07/19/17- excellent acute post-op recovery 2. Hypertension. BP well controlled, continue bystolic 3. Hyperlipidemia - statin 4. Diabetes mellitus - continue insulin 5. Peripheral arterial disease post fem pop bypass in past 6. Acute blood loss anemia expected post-op- s/p PRBC transfusion per primary team.H/H stable now 7. paroxysmal atrial fibrillation with RVR (new problem 07/22/2017)- now back on SR- continue Amio 200mg bid for 1 month - continue betablocker- keep K>4 Mg>2. Will consider anticoagulation only if A. fib recurs. OK for d/c home today. Cont medical rx with ASA, statin, BB, and ARB Continue PT/OT, and incentive spirometry oob as tolerated cardiac rehab II as outpatient follow up with us in 3-4 weeks. Thank you. The patient was seen and examined by me with the resident/VP SCIENTIFIC/PA and I agree with the History/Exam documented. Extracted from: Title: Endocrine Author: Bharat Cano MD Date: 07/21/17 Endocrine Consult Note: [id number] 1945) M Attending: Noe Zheng MDPhone: Service: Thoracic/Cardiac [facility] DATE OF CONSULT: 07/21/17 REFERRING PHYSICIAN: Dr Zheng CONSULTING PHYSICIAN: Dr Cano REASON FOR CONSULTATION: uncontrolled glucose levels CHIEF COMPLAINT: Endocrine consult was requested for management of type II DM HISTORY OF PRESENT ILLNESS: Mr Isaac is a 72 year old male pt with PMH of type II DM diagnosed ~10 years ago, complicated by PVD s/p right lower extremity bypass surgery, and CAD now status post CABG. He is unaware of diabetic retinopathy, neuropathy or nephropathy. His home medication is Glimperide 4mg daily. His latest A1c is 8.7% done on 07/13/17. He does not check his glucose often at home. Checks 1-2 glucose values premeal. Denies any overt hypoglycemia. Pt was initially admitted to the hospital for CABG after being found to have severe multivessel CAD on cardiac cath done after a positive stress test done for evaluation of worsening and unrelenting chest pain for several days. He had the CABG surgery done on 07/19 and he was started on Regular insulin infusion for tight glucose control perioperatively. Apparently he was requiring high doses of insulin reaching 61 units in the past 24 hrs. He was started on clear liquid diet last night and primary team is planning to switch to regular diet today. Currently, pt states that he feels well and denies chest pain, difficulty breathing, nause or vomiting. He tolerated clear liquids well. PAST MEDICAL HISTORY: DM type II, PVD, CAD, HTN, dyslipidemia, prostate Ca PAST SURGICAL HISTORY: lower extremity bypass grafting, prostatectomy and now s/p CABG SOCIAL HISTORY: He denied smoking, alcohol use or any illicit drug use. FAMILY HISTORY: He has strong family hx of DM in his family, including his mother and sister. Allergies (1) ActiveReaction NKDANone documented Medications (49) Active Scheduled Meds (16): 07/20/17 acetaminophen 1,000 mg IV Q6Hnow 400 ml/hr 07/20/17 aspirin (aspirin 81 mg tablet, enteric coated) 162 mg PO Daily 07/21/17 cilostazol (Pletal) 100 mg PO BID 07/21/17 docusate-senna (Doc-Q-Lax) 2 tab PO Daily 07/20/17 enoxaparin (Lovenox) 40 mg SUB-Q [id number] 07/20/17 gabapentin (gabapentin 100 mg oral capsule) 100 mg PO Q8Hnow 07/21/17 insulin glargine 25 unit SUB-Q Daily 0 ml/hr 07/21/17 insulin lispro 8 unit SUB-Q TID-Before Meals 07/20/17 (Suspended) losartan 50 mg PO Daily 07/20/17 methocarbamol + sodium chloride 0.9% INJ 100 mL (Robaxin + sodium chloride 0.9% INJ 100 mL) 1,000 mg IV Q8H 110 ml/hr 07/20/17 metoclopramide (Reglan) 10 mg IVP Q6H 07/13/17 nebivolol (Bystolic) 20 mg PO Daily 07/12/17 omega-3 polyunsaturated fatty acids (Lovaza oral capsule) 2,000 mg PO BID 07/21/17 polyethylene glycol 3350 (MiraLax) 17 gm PO BID 07/12/17 rosuvastatin (Crestor) 20 mg PO Bedtime 07/20/17 tramadol 25 mg PO Q8Hnow Unscheduled Meds: None PRN Meds (25): 07/19/17 Dextrose 50% in Water IV (Dextrose 50% Syringe) 25 gm IVP PRN 07/19/17 Dextrose 50% in Water IV (Dextrose 50% Syringe) 12.5 gm IVP PRN 07/21/17 Dextrose 50% in Water IV (Dextrose 50% Syringe) 12.5 gm IVP PRN 07/21/17 Dextrose 50% in Water IV (Dextrose 50% Syringe) 25 gm IVP PRN 07/19/17 albuterol-ipratropium (DuoNeb inhalation solution) 3 ml NEB PRN 07/19/17 calcium carbonate (calcium carbonate 500 mg (200 mg elemental calcium) oral tablet) 500 mg PO PRN 07/19/17 calcium carbonate (calcium carbonate 500 mg (200 mg elemental calcium) oral tablet) 1,000 mg PO PRN 07/19/17 calcium gluconate + sodium chloride 0.9% INJ 50 mL 1 gm IVPB PRN 120 ml/hr 07/21/17 glucagon 1 mg IM PRN 07/21/17 insulin lispro 1 unit SUB-Q TID-Before Meals 07/21/17 insulin lispro 2 unit SUB-Q TID-Before Meals 07/21/17 insulin lispro 3 unit SUB-Q TID-Before Meals 07/21/17 insulin lispro 4 unit SUB-Q TID-Before Meals 07/21/17 insulin lispro 5 unit SUB-Q TID-Before Meals 07/19/17 magnesium oxide 800 mg PO PRN 07/19/17 magnesium sulfate 2 gm IVPB PRN 25 ml/hr 07/20/17 naloxone 0.04 mg IVP Q2MIN 07/19/17 potassium chloride 20 mEq IVPB PRN 50 ml/hr 07/19/17 potassium chloride 10 mEq IVPB PRN 50 ml/hr 07/19/17 potassium chloride 20 mEq PO PRN 07/19/17 potassium chloride 20 mEq NJ PRN 07/19/17 potassium phosphate + sodium chloride 0.9% INJ 250 mL 15 mmol IVPB PRN 63.75 ml/hr 07/19/17 potassium phosphate + sodium chloride 0.9% INJ 250 mL 30 mmol IVPB PRN 65 ml/hr 07/19/17 potassium phosphate + sodium chloride 0.9% INJ 250 mL 45 mmol IVPB PRN 66.25 ml/hr 07/19/17 potassium phosphate-sodium phosphate (potassium phosphate-sodium phosphate 250 mg-280 mg-160 mg oral powder for reconstitution) 2 pkt PO PRN One Time Meds (5): 07/21/17 (Completed) AMIODarone + Dextrose 5% in Water IV 100 mL 150 mg IVPB ONCE 600 ml/hr 07/21/17 (Discontinued) SMOG Enema 300 ml GA ONCE 07/21/17 (Completed) Sodium Chloride 0.9% IV GA ONCE 0 ml/hr 07/21/17 (Completed) glycerin (Glycerol) 100 mL GA ONCE 07/21/17 (Completed) mineral oil 100 mL GA ONCE Continuous Infusions (3): 07/21/17 AMIODarone INJ 900 mg + D5W 500 ml INJ 482 mL 900 mg 1 mg/min for 6 hours, then reduce to 0.5 mg/min 07/20/17 HYDROmorphone SYSTEMS QA ANALYST 0.5mg/ml 30ml INJ 15 mg 15 mg Per SYSTEMS QA ANALYST Order as Directed 07/19/17 Insulin regular 100 unit + 99 mL Start Insulin Drip Per ICU Protocol REVIEW OF SYSTEMS: GEN - no fatigue, no significant weight changes, no constitutional sxs, no fevers/chills EYES - no vision changes, no double vision, no blurry vision, no dryness EARS - no hearing changes NECK - no compression sxs, no dysphagia, no changes in voice, no deepening of voice, no lumps noted CVS - no chest pain, no palpitations, no orthopnea RESP - no cough, no wheezes, no SOB, no hemoptysis ABD - no abdominal pain, no nausea, no vomiting, no diarrhea, no constipation - no dysuria, no hematuria, no polyuria MSK - no back pain, no joint pains, no muscle aches NEURO - no chronic headaches, no tremors, no gait changes, no vision changes PSYCH - no SI/HI, no mood changes HEME/LYMPH - no easy bruising, no bleeding SKIN - no skin lesions, no rashes, or ulcers ENDO - no tremors, no palpitations, no thermal lability, no polydipsia, no fatigue PHYSICAL EXAMINATION: Vital Signs - Reviewed VitalsTmp(F)[id number] 07/21 12:0098.3 07/21 11:45----[id number]--- 07/21 11:30----[id number]--- 07/21 11:15----94-----[id number]--- 07/21 11:00----99-----[id number]--- 24 Hr Tmax: 99.5F (37.50c) at 07/21 08:00Vital Signs are the last 5 in the past 48 hours. DateWt(kg)Wt(lb)Ht(cm)Ht(in)Method 07/19 88.32 194.31Measured 07/13 86.17 189.56Measured 07/12 (initial) 91.36 201.86930.72 68.00Measured Vital Signs - reviewed General - patient is in no acute distress, alert and oriented x3. lying comfortably in bed HEENT - normocephalic/atraumatic, PERRLA, EOMI, supple neck, no significant adenopathy, thyroid gland is not grossly enlarged CVS - regular rate and rhythm, normal S1, S2 Chest - clear to auscultation b/l anterior chest. sternotomy incision site covered. looks clean. two drains at the lower sterum draining serosanguinous fluid. Abdomen - truncal obesity, soft, nontender, nondistended, normoactive bowel sounds present Extremities - peripheral pulses +1. no edema Skin - normal Neuro - no gross focal deficits appreciated DATA: 24hr Labs 07/21 1055 Glucose UOY228 H 07/21 0952 Glucose UQF034 H 07/21 0853 RBC productProduct available 07/21 0739 Glucose KER791 H 07/21 0556 Glucose IMU143 H 07/21 0344 Glucose URN124 H 07/21 0205 Glucose POW698 H 07/21 0159 Ca Ion WB1.07 Ca Norm WB1.05 Phosphorus4.0 Magnesium Lvl2.9 H Glucose Rrj508 H BUN21 Creatinine Lvl1.52 H Sodium Hql235 Potassium Lvl4.5 Chloride Xss903 CO226 AGAP13.5 Calcium Lvl7.9 L eGFR45 WBC12.5 H RBC2.25 L Hgb7.3 L Hct20.5 L MCV91.1 MCH32.5 H MCHC35.6 RDW14.6 H Uvrczezg934 MPV9.8 Segs78.0 H Monocytes8.0 Fsopsxpcgoe73.9 L Basophils0.1 Segs-Bands #9.7 H Lymphocytes #1.7 Monocytes #1.0 H PT17.6 H INR1.42 H PTT37.4 H 07/21 0001 Glucose GMJ088 H 07/20 2201 Glucose SBS636 H 07/20 2116 Glucose EWT147 H 07/20 2021 Glucose ZDR189 H 07/20 1928 Glucose EHL782 H 07/20 1846 Glucose TOV500 H 07/20 1723 POC V SourceVEN POC V Temp37.0 POC V pH7.35 POC V BJX002 POC V PO215 L POC V RJX916 POC V BE0 POC V O2 Sat17.0 L POC V Hct20.0 C POC V Ion Ca1.16 POC V K4.4 POC V Na138 POC V LA2.6 H POC V Wxm753 H 07/20 1650 Glucose FLE174 H 07/20 1555 Glucose HWM507 H 07/20 1512 Glucose RVF400 H 07/20 1406 Glucose KTW124 H 07/20 1311 Ca Ion WB1.13 Ca Norm WB1.08 07/20 1259 Glucose XGL281 H 07/20 1255 Glucose Lvl94 BUN16 Creatinine Lvl1.20 Sodium Eso761 Potassium Lvl4.7 Chloride Lan525 H CO224 AGAP13.7 Calcium Lvl8.2 L eGFR60 Magnesium Lvl3.1 H Phosphorus4.0 07/18 1455 XM EXM InterpCompatible XM EXM InterpCompatible ASSESSMENT AND PLAN: Uncontrolled Type II DM: Home regimen was Glimepiride 4 mg daily, with latest A1c of 8.7% Pt had high insulin requirements while on insulin infusion aileen-operatively Will therefore start him on Levemir 25 units subQ now, to be bridged with insulin drip for two hours, then insulin drip can be discontinued. Will also start meal time insulin, with Lispro 8 units TID Correction insulin with low dose sliding scale for now Will monitor BS and adjust insulin requirements accordingly Thank you for this consult. Please page end[facility]ine team for any questions. Stephie Ornelas MD PGY-4 Endocrine fellow pager: [phone] Endocrine Service Teaching Note: I have interviewed and examined the patient. I have reviewed the resident/fellow's note dated 07/21/2017, and agree with the clinical findings, assessment, and plan. I have discussed the case with Dr. Aguilar and the endocrine team. I have amended the note. Data: 24 Hr Point of Care Glucoses 07/21 2025Glucose ZDF568 H 07/21 1604Glucose ELG922 H 07/21 1055Glucose PKB509 H 07/21 0952Glucose QIH716 H 07/21 0739Glucose AXI024 H 07/21 0556Glucose TUK156 H 07/21 0344Glucose RMR120 H 07/21 0205Glucose IRC509 H 07/21 0001Glucose UYP429 H 07/20 2201Glucose NRJ416 H 07/20 2116Glucose BXE677 H Hgb A1C: 8.7 % High (07/13/17 06:57:55) TSH: 0.576 uIU/mL (07/13/17 05:11:53) CO2: 26 mEq/L (07/21/17 03:24:09) Chloride Lvl: 109 mEq/L (07/21/17 03:24:09) Sodium Lvl: 144 mEq/L (07/21/17 03:24:09) Glucose Lvl: 108 mg/dL High (07/21/17 03:24:09) Calcium Lvl: 7.9 mg/dL Low (07/21/17 03:24:09) Potassium Lvl: 4.5 mEq/L (07/21/17 03:24:09) BUN: 21 mg/dL (07/21/17 03:24:09) AGAP: 13.5 mEq/L (07/21/17 03:24:09) Creatinine Lvl: 1.52 mg/dL High (07/21/17 03:24:09) Alk Phos: 30 unit/L Low (07/19/17 19:41:23) A/G Ratio: 1.4 (07/19/17 19:41:23) ALT: 23 unit/L (07/19/17 19:41:23) Albumin Lvl: 2.8 g/dL Low (07/19/17 19:41:23) Bili Total: 0.3 mg/dL (07/19/17 19:41:23) Total Protein: 4.8 g/dL Low (07/19/17 19:41:23) Globulin: 2 g/dL Low (07/19/17 19:41:23) AST: 34 unit/L (07/19/17 19:41:23) CHD Risk: 3.04 Low (07/19/17 20:25:42) Chol: 82 mg/dL (07/19/17 20:25:42) HDL: 27 mg/dL Low (07/19/17 20:25:42) LDL (Calculated): 33 mg/dL (07/19/17 20:25:43) Tri mg/dL (07/19/17 20:25:42) VLDL: 22 (07/19/17 20:25:44) Assessment: 1. Uncontrolled T2DM 2. HTN 3. HLD 4. CAD 5. PVD Mdm: * Labs/log/data reviewed in [facility], and endocrine studies/fingersticks ordered. * External records requested/reviewed. * Case reviewed with primary team. Thank you for allowing us to participate in the patient's care. --- Bharat Cano MD [facility] MSO # [id number] Extracted from: Title: Clinical Document Author: Noe Zheng MD Date: 07/19/17 SURGEON 1ST [id number] ASSISTANTDATE OFOPERATION Alicia Patten M.D. D. [place], [facility]07/19/2017 PREOPERATIVE DIAGNOSIS:1. Severe triple vessel atherosclerotic occlusive coronary artery disease 2.Good left ventricular function EF ~ 60% 3.Hypertension 4.Hyperlipidemia 5.Diabetes mellitus 6.Severe arterial occlusive disease 7.Bilateral severe subclavian artery stenosis (RT > LT) 8.Heavily calcified aortic arch and descending aorta 9.Bilateral carotid stenosis 10.Past smoker POSTOPERATIVE DIAGNOSIS:Same OPERATION:1.Urgent CABG X 3 using cardiopulmonary bypass 2.Free left internal mammary artery bypass to the left anterior descending coronary artery (T graft from the to OM1) 3.Bypass from the ascending aorta to the first obtuse marginal coronary artery using reversed saphenous vein graft 4.Bypass from the ascending aorta to the distal right coronary artery using reversed saphenous vein graft 5.Cold blood cardioplegic arrest 6.Endoscopic vein harvesting (MAHENDRA Price,) 7.Trans esophageal echocardiography 8.Insertion of temporary epicardial pacing wires AORTIC CLAMP TIME:69 minutes TOTAL PUMP TIME:83 minutes LOWEST BLADDER TEMP:33.3C BLOOD REQUIREMENTS:1 unit of cell saver PROCEDURE: Mr. Isaac is a pleasant 71-year-old man with multiple risk factors for CAD. The patient has been experiencing recurrent chest pain and underwent a nuclear stress test that revealed anterior and septal ischemia. Echocardiogram revealed preserved LV systolic function with ejection fraction of 60% to 65%. Cardiac catheterization revealed heavily calcified coronary anatomy with distal left main involvement as well as triple vessel CAD. The patient was referred for surgical coronary revascularization. Prior to surgery, Chest CT scan as well as upper extremity arterial Doppler demonstrated severe subclavian artery stenosis, prior to the takeoff of the internal mammary arteries. It was therefore decided to use the KENNEDY as a free graft. The risks and benefits of the procedure were explained in details to the patient and his family, and informed consent was obtained. The patient was taken to the operating room, placed in the supine position and administered satisfactory general endotracheal anesthesia. Chest, abdomen and legs were prepped and draped in the usual sterile manner. The chest was entered through a median sternotomy. The left pleura was entered. The left internal mammary artery was dissected in a skeletonized fashion by using the cautery starting from the 6th intercostal space going proximally to the first rib. The branches were ligated with hemoclips and divided. Then, the left internal mammary artery was disconnected to be used as a free graft, and placed and soaked in a bath with .75% Papaverine solution. Simultaneously, the saphenous vein was endoscopically harvested from the left leg (MAHENDRA Price). The patient was anti-coagulated with sodium heparin. The pericardium was opened longitudinally. The heart was cannulated for cardiopulmonary bypass with placement of a cannula in the distal ascending aorta and a dual stage cannula in the right atrium. Cardiopulmonary bypass was established, and the patient was allowed to drift to the above stated temperatu re. An antegrade cardioplegia cannula was inserted into the ascending aorta and secured, following which the ascending aorta was cross-clamped. Cold blood cardioplegic solution was instilled into the ascending aorta establishing a diastolic arrest. . At that point, the distal right coronary artery was identified and opened longitudinally. The vessel was noted to be suitable for bypass admitting a 1.5mm dilator. A saphenous vein segment was fashioned end-to side to the arteriotomy made in this vessel and anastomosis was completed using a running # 7/0 Prolene suture. One small aortotomy was made in the ascending aorta to which the saphenous vein graft to the distal right coronary artery was sutured in end-to-side fashion using a running # 6/0 Prolene suture. Next, the first obtuse marginal coronary artery was identified and opened longitudinally. The vessel was noted to be suitable for bypass admitting a 1.5mm dilator. A second saphenous vein segment was fashioned end-to side to the arteriotomy made in this vessel and anastomosis was completed using a running # 7/0 Prolene suture. At that point, the left anterior descending coronary artery was identified and opened. The vessel was noted to be suitable for bypass admitting a 1.5mm dilator. The left internal mammary artery was fashioned end-to side as a free graft to the arteriotomy made in the left anterior descending coronary artery and the anastomosis was completed using a running # 8/0 Prolene suture. A second small aortotomy was made in the ascending aorta to which the saphenous vein graft to the first obtuse marginal coronary artery was sutured in end-to-side fashion using a running # 6/0 Prolene suture. At that point, a small longitudinal incision was made in the saphenous vein graft to the first obtuse marginal coronary artery. The left internal mammary artery was fashioned end-to side as a T-graft to this saphenous vein graft. The heart chambers were filled with blood. Any potential air was evacuated via the antegrade aortic cardioplegia cannula. The patient was placed in the head-down position and the aortic cross-clamp released. The heart returned to a normal sinus rhythm spontaneously. Having demonstrated satisfactory rate and rhythm the head was slowly elevated to the horizontal position. Rewarming continued to a nasopharyngeal and bladder temperature of 36.0C. After demonstrating satisfactory blood pressure, rhythm and heart rate the patient was uneventfully weaned from cardiopulmonary bypass. The aortic and vena caval cannulae were removed. Protamine sulfate was administered to reverse the anti-coagulated state. Temporary epicardial pacing wires were placed on the right ventricular outflow tract. One #36 chest tube was placed in the mediastinum and one # 28 right angle chest tube was placed in the left pleural space for drainage. The chest was closed with interrupted #6 stainless steel surgical wires on the sternum, running #l Vicryl Plus on the muscular fascia and running # 3/0 Monocryl suture for the skin. The patient tolerated the procedure well and was taken to the ICU in stable condition. Sponge, needle and instrument counts x4 were correct. I was present for all elements of this operation that included performing all distal and proximal anastomoses of the coronary arteries, including the left internal mammary artery to the left anterior descending coronary artery. I weaned the patient from cardiopulmonary bypass and closed the incision. Noe Zheng M.D. Extracted from: Title: [facility]&P Author: Ld Cantrell MD Date: 07/13/17 Impression and Plan #Multivessel CAD - Pre-op clearance for CAB with Dr. Zheng + Consult Pulmonary + HVI VASC Venous mapping and bilateral carotid doppler, ordered - Aspirin #HLD - Statin #HTN - Nebivolol, losartan #DM - SSI + carb control diet #PAD - Cilostazol
--- OUTSIDE RECORDS SUMMARY | 2019-05-04 14:03 | XMS REPORT | CCD ---
Author Author Auto Generated Organization [facility] Address Unknown Phone Unavailable Care Team Providers Care Supervisor Frame Sample And Pattern Name Role Phone Khari Wilson RP Allergies, Adverse Reactions, Alerts Substance Reaction Status NKDA Active Problem List Condition Effective Dates Status Anxiety Active Coronary artery disease Active Vital Signs Most recent to oldest [Reference Range]: 1 Height 165.1 cm (04/03/2013 09:59:00) Weight 93.182 kg (04/03/2013 09:59:00)
--- OUTSIDE RECORDS SUMMARY | 2019-05-04 14:03 | XMS REPORT | CCD ---
Author Author Auto Generated Organization [facility] Address Unknown Phone Unavailable Care Team Providers Care Studio Assistant Name Role Phone Khari Wilson RP Allergies, Adverse Reactions, Alerts Substance Reaction Status NKDA Active Problem List Condition Effective Dates Status Anxiety Active Coronary artery disease Active Vital Signs Most recent to oldest [Reference Range]: 1 Height 172.72 cm (04/24/2013 09:51:00) Weight 80.909 kg (04/24/2013 09:51:00) Results CHEMISTRY Most recent to oldest [Reference Range]: 1 eGFR 92 mL/min/1.73m2 1 *NA* (04/24/2013 10:18:00) POC Creatinine [0.5-1.4 mg/dL] 0.8 mg/dL (04/24/2013 10:18:00) 1Result Comment: The eGFR is calculated using [...]
--- OUTSIDE RECORDS SUMMARY | 2019-05-04 14:03 | XMS REPORT | Continuity of Care Document ---
Author Author [facility] Interface Address Unknown Phone Unavailable Problems Problem Status Onset Date Classification Date Reported Comments Source PERIPHERAL VASCULAR DISEASE, UNSPECIFIED Active 11/06/2018 [facility] CCL/LHC W/ POSS/DX: ABN RESULT OF CV AGUEDA Active 06/24/2017 [facility] ABN RESULT OF CV STUDY Active 06/24/2017 [facility] PAIN IN LIMB Active 04/05/2016 [facility] LEG PAIN Active 04/05/2016 [facility] PAIN IN LIMB(LIMITED LCD MUST BE ARTERIA Active 04/21/2015 [facility] PERIPHERAL ARTERIAL DISEASE Active 08/19/2014 [facility] PERIPHERAL ARTERIAL DISEASE, ICD-9# 443. Active 08/19/2014 [facility] CCL/ABD AORTOGRAM W/ RUNOFFS/PICKLE PUMPER/DX: PVD Active 06/22/2014 [facility] ATHEROSCLEROSIS OF LE W/ INTERMITTENT CL Active 06/22/2014 [facility] 443.9 Active 06/09/2014 [facility] PVD Active 05/20/2013 [facility] CCL/ABD AORTOGRAM W/ PICKLE PUMPER TO LSFA STAGED Active 05/20/2013 [facility] DEEP VEIN THROMBOSISWITH RUN OFF Active 04/16/2013 [facility] PERIPHERAL VASCULAR DISEASE Active 03/27/2013 [facility] Anxiety Active Problem 05/31/2013 [facility] Coronary artery disease Active Problem 05/31/2013 [facility] Anxiety Active Problem 01/11/2019 [facility] Coronary artery disease Active Problem 01/11/2019 [facility] Diabetes mellitus Resolved Problem 01/11/2019 [facility] Diabetes mellitus - adult onset Active Problem 01/11/2019 [facility] Hyperlipidemia Active Problem 01/11/2019 [facility] Hypertension Active Problem 01/11/2019 [facility] Prostate carcinoma Resolved Problem 01/11/2019 [facility] PVD - Peripheral vascular disease Active Problem 01/11/2019 [facility] Diabetes mellitus Resolved Problem 05/31/2013 [facility] Hyperlipidemia Active Problem 05/31/2013 [facility] Hypertension Active Problem 05/31/2013 [facility] Prostate carcinoma Resolved Problem 05/31/2013 [facility] PVD - Peripheral vascular disease Active Problem 05/31/2013 [facility] Diabetes mellitus - adult onset Active Problem 05/31/2013 [facility] PERIPH VASCULAR DIS NOS Active [facility] PAIN IN LEFT LEG Active [facility] Medications Medication Details Route Status Patient Instructions Ordering Provider Order Date Source metoprolol (ANES) Route: IV, Drug form: INJ, ONCE, Stop date: 01/09/19 12:46:00 SIZER MACHINE Inactive 01/09/2019 [facility] protamine (ANES) Route: IV, Drug form: INJ, ONCE, Stop date: 01/09/19 12:40:00 SIZER MACHINE Inactive 01/09/2019 [facility] heparin (ANES) Route: IV, Drug form: INJ, ONCE, Stop date: 01/09/19 12:08:00 SIZER MACHINE Inactive 01/09/2019 [facility] Sodium Chloride 0.9% IV (ANES) 1000 mL Route: IV, Total Volume: 1,000, Start date: 01/09/19 11:45:00 SIZER MACHINE, Stop date: 01/09/19 12:45:00 SIZER MACHINE Inactive 01/09/2019 [facility] fentaNYL (ANES) Route: IV, Drug form: INJ, ONCE, Stop date: 01/09/19 11:08:00 SIZER MACHINE Inactive 01/09/2019 [facility] ceFAZolin (ANES) Route: IV, Drug form: INJ, ONCE, Stop date: 01/09/19 11:08:00 SIZER MACHINE Inactive 01/09/2019 [facility] midazolam (ANES) Route: IV, Drug form: SOLN, ONCE, Stop date: 01/09/19 11:03:00 SIZER MACHINE Inactive 01/09/2019 [facility] Ondansetron 4 mg, 2 mL, Route: IVP, Drug form: INJ, ONCE, Dosing Weight 94.545, kg, PRN Nausea & Vomiting, Start date: 01/09/19 10:57:00 CSTNotes: (Same as: Zofran) MEDICATION WASTE Product Size: 4 mg Product Wasted: ___ mg No Longer Active 01/09/2019 [facility] Flumazenil 0.2 mg, 2 mL, Route: IVP, Drug form: INJ, PRN, Dosing Weight 94.545, kg, PRN Benzodiazepine Reversal, Initial dose, Start date: 01/09/19 10:57:00 SIZER MACHINE, Duration: 30 day, Stop date: 02/08/19 11:56:00 C DTNotes: (Same as: Romazicon) No Longer Active 01/09/2019 [facility] Fentanyl 50 microgram, 1 mL, Route: IVP, Drug form: INJ, Q5Min, Dosing Weight 94.545, kg, PRN Pain Score 7-10, Priority: Routine, Start date: 01/09/19 10:57:00 SIZER MACHINE, Duration: 2 doses or times, Stop date: 01/10/19 0:00:00 CSTNotes: (Same as: Sublimaze) Preservative free. No Longer Active 01/09/2019 [facility] Metoprolol 1 mg, 1 mL, Route: IVP, Drug form: INJ, Q5Min, Dosing Weight 94.545, kg, PRN Other -See Comment, Start date: 01/09/19 10:57:00 SIZER MACHINE, Duration: 5 doses or times, Stop date: 01/10/19 0:00:00 CSTNotes: (Same as: Lopressor) Push over 2 minutes No Longer Active 01/09/2019 [facility] Hydromorphone 0.5 mg, 0.25 mL, Route: IVP, Drug form: INJ, Q5Min, Dosing Weight 94.545, kg, PRN Pain Score 7-10, Start date: 01/09/19 10:57:00 SIZER MACHINE, Duration: 4 doses or times, Stop date: 01/10/19 0:00:00 CSTNotes: Same as Dilaudid No Longer Active 01/09/2019 [facility] Naloxone 0.4 mg, 1 mL, Route: IVP, Drug form: INJ, Q2MIN, Dosing Weight 94.545, kg, PRN Narcotic Reversal, Start date: 01/09/19 10:57:00 SIZER MACHINE, Duration: 8 doses or times, Stop date: 01/10/19 0:00:00 CSTNotes: Same as Narcan No Longer Active 01/09/2019 [facility] Hydralazine 10 mg, 0.5 mL, Route: IVP, Drug form: INJ, Q20Min, Dosing Weight 94.545, kg, PRN Elevated BP, Start date: 01/09/19 10:57:00 SIZER MACHINE, Duration: 2 doses or times, Stop date: 01/10/19 0:00:00 CSTNotes: (Same as: Apresoline) Push over 5 minutes No Longer Active 01/09/2019 [facility] Sodium Chloride 0.9% (titrate) 250 mL 250 mL, Rate: To prime line and flush remaining blood products., Dosing Weight 88.324, kg, Route: IV, Total Volume: 250, Start Date: 01/09/19 5:00:00 SIZER MACHINE, Duration: 1 day, Stop date: 01/10/19 4:59:00 SIZER MACHINE, Replace Every: 24 hr No Longer Active 01/09/2019 [facility] AMIODarone 200 mg oral tablet 200 mg=1 tab, PO, BID, # 60 tab, 0 Refill(s) Active 07/26/2017 [facility] Cardiac Rehabilitation See Instructions, s/p CABGx3, # 1 unit, 0 Refill(s) Active 07/26/2017 [facility] AMIODarone 200 mg oral tablet 200 mg=1 tab, PO, BID, # 60 tab, 0 Refill(s) Inactive 07/26/2017 [facility] Furosemide 20 MG Oral Tablet [Lasix] 20 mg=1 tab, PO, Daily, # 3 tab, 0 Refill(s) Active 07/26/2017 [facility] tramadol hydrochloride 50 MG Oral Tablet 50 mg=1 tab, PO, Q8Hnow, PRN Pain Score 4-6, X 30 day, # 60 tab, 0 Refill(s) Active 07/26/2017 [facility] gabapentin 100 MG Oral Capsule 100 mg=1 cap, PO, Q8Hnow, # 90 cap, 0 Refill(s) Active 07/26/2017 [facility] Docusate Sodium 50 MG / sennosides, SKILLED NURSING 8.6 MG Oral Tablet 2 tab, PO, Daily, PRN Constipation, X 14 day, # 28 tab, 0 Refill(s) Active 07/26/2017 [facility] aspirin 81 mg tablet, enteric coated 81 mg, 1 tab, Route: PO, Drug form: ECTAB, Daily, Dosing Weight 88.324, kg, Start date: 07/26/17 9:00:00 CDT, Duration: 30 day, Stop date: 08/24/17 9:00:00 CDTNotes: Do not crush or chew. (Same As: Ecotrin) Inactive 07/26/2017 [facility] Colchicine 0.6 mg, 1 tab, Route: PO, Drug form: TAB, BID, Dosing Weight 88.324, kg, Start date: 07/25/17 17:00:00 CDT, Duration: 30 day, Stop date: 08/24/17 9:00:00 CDT No Longer Active 07/25/2017 [facility] Lasix 40 mg, 4 mL, Route: IV, Drug form: INJ, ONCE, Dosing Weight 88.324, kg, Start date: 07/25/17 11:01:00 CDT, Stop date: 07/25/17 11:01:00 CDTNotes: (Same as: Lasix) MEDICATION WASTE Product Size: 40 mg Product Wasted: ___ mg Inactive 07/25/2017 [facility] Amiodarone 200 mg, 1 tab, Route: PO, Drug form: TAB, BID, Dosing Weight 88.324, kg, Start date: 07/25/17 9:00:00 CDT, Duration: 30 day, Stop date: 08/23/17 17:00:00 CDTNotes: (Same as: Cordarone) No Longer Active 07/25/2017 [facility] AMIODarone INJ 900 mg + D5W 500 ml INJ 482 mL 900 mg, 18 mL, Rate: 1 mg/min for 6 hours, then reduce to 0.5 mg/min, Dosing Weight 88.324, kg, Route: IV, Total Volume: 500, Start Date: 07/24/17 3:57:00 CDT, Duration: 30 day, Stop date: 08/23/17 3:56:00 CDT, Replace Every: 24 hrNotes: Central administration only for concentration > 2 mg/ml. Use Glass Bottle or Non PVC Bag "Use 0.22 micron in-line filter" MEDICATION WASTE Product Size: 900 mg Product Wasted: ___ mg Inactive 07/24/2017 [facility] Amiodarone 150 mg, 3 mL, Route: IVPB, ONCE, Dosing Weight 88.324, kg, Start date: 07/24/17 3:57:00 CDT, Stop date: 07/24/17 3:57:00 CDTNotes: Central administration only for concentrations > 2 mg/ml. "Recommendation: Use an in-line filter during administration for continuous infusions to reduce the incidence of phlebitis" (Same as Codarone) MEDICATION WASTE Product Size: 150 mg Product Wasted: ___ mg Inactive 07/24/2017 [facility] Robaxin 500 mg, 1 tab, Route: PO, Drug form: TAB, TID, Dosing Weight 88.324, kg, PRN Pain Score 4-6, Start date: 07/23/17 15:15:00 CDT, Duration: 30 day, Stop date: 08/22/17 15:14:00 CDTNotes: (Same as:Robaxin) No Longer Active 07/23/2017 [facility] potassium phosphate-sodium phosphate 250 mg-280 mg-160 mg oral powder for reconstitution 2 pkt, Route: PO, Drug Form: PDR/REC, Dosing Weight 88.324, kg, PRN, PRN Abnormal Lab Result, For NON-ICU Patients Only, Start date: 07/23/17 10:49:00 CDT, Duration: 30 day, Stop date: 08/22/17 10:48:00 CDTNotes: (Same as: Phos-NaK) Each 1.5 gm pkt has 250mg phosphorous. Mix w/2.5oz water and stir. No Longer Active 07/23/2017 [facility] Potassium Chloride 10 mEq, 50 mL, Route: IVPB, Drug form: INJ, PRN, Dosing Weight 88.324, kg, PRN Abnormal Lab Result, For NON-ICU Patients Only, Start date: 07/23/17 10:49:00 CDT, Duration: 30 day, Stop date: 08/22/17 10:48:00 CDTNotes: (Same as: KCL) Infuse over 2 hours. No Longer Active 07/23/2017 [facility] Magnesium Sulfate 2 gm, 50 mL, Route: IVPB, Drug form: INJ, PRN, Dosing Weight 88.324, kg, PRN Abnormal Lab Result, For NON-ICU Patients Only., Start date: 07/23/17 10:49:00 CDT, Duration: 30 day, Stop date: 08/22/17 10:48:00 CDTNotes: WASTE: F/P - Sink; E - Municipal Trash Bin No Longer Active 07/23/2017 [facility] sodium phosphate 30 mmol, 10 mL, Route: IVPB, PRN, Dosing Weight 88.324, kg, PRN Abnormal Lab Result, For NON-ICU Patients Only., Start date: 07/23/17 10:49:00 CDT, Duration: 30 day, Stop date: 08/22/17 10:48:00 CDT No Longer Active 07/23/2017 [facility] potassium phosphate 30 mmol, 10 mL, Route: IVPB, PRN, Dosing Weight 88.324, kg, PRN Abnormal Lab Result, For NON-ICU Patients Only., Start date: 07/23/17 10:49:00 CDT, Duration: 30 day, Stop date: 08/22/17 10:48:00 CDTN otes: (Same as: K Phosphate.) 1 mMol phoshate has 1.47 mEq potassium Infuse over 4 hours No Longer Active 07/23/2017 [facility] Calcium Gluconate 3 gm, 30 mL, Route: IVPB, PRN, Dosing Weight 88.324, kg, PRN Abnormal Lab Result, For NON-ICU Patients Only., Start date: 07/23/17 10:49:00 CDT, Duration: 30 day, Stop date: 08/22/17 10:48:00 CDTNotes: WASTE: F/P - Sink; E - Municipal Trash Bin No Longer Active 07/23/2017 [facility] Magnesium Oxide 800 mg, 2 tab, Route: PO, Drug form: TAB, PRN, Dosing Weight 88.324, kg, PRN Abnormal Lab Result, For NON-ICU Patients Only., Start date: 07/23/17 10:49:00 CDT, Duration: 30 day, Stop date: 08/22/17 10:48:00 CDTNotes: (Same as: Mag-Ox 400) Magnesium oxide [id number] elemental magnesium Dose=____mg magnesium oxide (___mg elemental magnesium) No Longer Active 07/23/2017 [facility] Tylenol 1,000 mg, 2 tab, Route: PO, Drug form: TAB, Q6H, Dosing Weight 88.324, kg, PRN Pain 4-6/Temp > 100.4 F, Priority: NOW, Start date: 07/23/17 10:38:00 CDT, Duration: 2 day, Stop date: 07/25/17 10:37:00 CDTNotes: Max acetaminophen 4000 mg/day (4 gm/day). (Same as: Tylenol Extra Strength) No Longer Active 07/23/2017 [facility] Losartan 25 mg, 1 tab, Route: PO, Drug form: TAB, Daily, Dosing Weight 88.324, kg, Priority: NOW, Start date: 07/23/17 10:34:00 CDT, Duration: 30 day, Stop date: 08/22/17 9:00:00 CDTNotes: (Same as: Cozaar) No Longer Active 07/23/2017 [facility] Metoprolol 5 mg, 5 mL, Route: IVP, Drug form: INJ, Q2MIN, Dosing Weight 88.324, kg, PRN Arrhythmias, Start date: 07/22/17 23:02:00 CDT, Duration: 3 doses or times, Stop date: Limited # of timesNotes: (Same as: Lopressor) Push over 2 minutes No Longer Active 07/23/2017 [facility] Amiodarone 400 mg, 2 tab, Route: PO, Drug form: TAB, BID, Dosing Weight 88.324, kg, Priority: NOW, Start date: 07/22/17 10:12:00 CDT, Stop date: 08/21/17 9:00:00 CDTNotes: (Same as: Cordarone) No Longer Active 07/22/2017 [facility] AMIODarone INJ 900 mg + D5W 500 ml INJ 482 mL 900 mg, 18 mL, Rate: 1 mg/min for 6 hours, then reduce to 0.5 mg/min, Dosing Weight 88.324, kg, Route: IV, Total Volume: 500, Start Date: 07/21/17 12:15:00 CDT, Duration: 30 day, Stop date: 08/20/17 12:14:00 CDT, Replace Every: 24 hrNotes: Central administration only for concentration > 2 mg/ml. Use Glass Bottle or Non PVC Bag "Use 0.22 micron in-line filter" MEDICATION WASTE Product Size: 900 mg Product Wasted: _0__ mg No Longer Active 07/21/2017 [facility] Amiodarone 150 mg, Route: IVPB, ONCE, Dosing Weight 88.324, kg, Start date: 07/21/17 12:15:00 CDT, Stop date: 07/21/17 12:15:00 CDT Inactive 07/21/2017 [facility] insulin glargine 25 unit, 0.25 mL, Route: SUB-Q, Drug form: SOLN, Daily, Start date: 07/21/17 11:30:00 CDT, Duration: 30 day, Stop date: 08/20/17 9:00:00 CDTNotes: (Same as: Lantus) Do not hold insulin without contac ting prescriber WASTE: F/P - Black; E - Municipal Trash Bin "single patient use only" No Longer Active 07/21/2017 [facility] Insulin Lispro 8 unit, 0.08 mL, Route: SUB-Q, Drug form: SOLN, TID-Before Meals, Dosing Weight 88.324, kg, Start date: 07/21/17 11:30:00 CDT, Duration: 30 day, Stop date: 08/20/17 7:30:00 CDTNotes: (Same as: Humalog ) Roll in palms of hands gently; Do not shake `vigorously. "Single Patient Use Only " (Restricted to patients requiring a dose > 60 units) WASTE: F/P - Black; E - Municipal Trash Bin Stable for 28 days at room temperature. Expires in days from Date No Longer Active 07/21/2017 [facility] Insulin Lispro 1 unit, 0.01 mL, Route: SUB-Q, Drug form: SOLN, TID-Before Meals, Dosing Weight 88.324, kg, PRN Blood Glucose Results, Start date: 07/21/17 11:22:00 CDT, Duration: 30 day, Stop date: 08/20/17 11:21:0 0 CDTNotes: (Same as: Humalog ) Roll in palms of hands gently; Do not shake `vigorously. "Single Patient Use Only " (Restricted to patients requiring a dose > 60 units) WASTE: F/P - Black; E - Municipal Trash Bin Stable for 28 days at room temperature. Expires in days from Date No Longer Active 07/21/2017 [facility] Dextrose 50% Syringe 12.5 gm, 25 mL, Route: IVP, Drug Form: INJ, Dosing Weight 88.324, kg, PRN, PRN Blood Glucose Results, Start date: 07/21/17 11:22:00 CDT, Duration: 30 day, Stop date: 08/20/17 11:21:00 CDT No Longer Active 07/21/2017 [facility] Glucagon 1 mg, Route: IM, Drug form: PDR/INJ, PRN, Dosing Weight 88.324, kg, PRN Blood Glucose Results, Start date: 07/21/17 11:22:00 CDT, Duration: 30 day, Stop date: 08/20/17 11:21:00 CDT No Longer Active 07/21/2017 [facility] Levemir 25 unit, Route: SUB-Q, Daily, Dosing Weight 88.324, kg, Priority: NOW, Start date: 07/21/17 11:10:00 CDT, Duration: 30 day, Stop date: 08/20/17 9:00:00 CDT Inactive 07/21/2017 [facility] Miralax 17 gm, 1 pkt, Route: PO, Drug form: PWDR, BID, Dosing Weight 88.324, kg, PRN Constipation, Start date: 07/21/17 9:00:00 CDT, Stop date: 08/19/17 17:00:00 CDTNotes: Dissolve in 8 oz of water or juice. (Same as: Miralax) No Longer Active 07/21/2017 [facility] Doc-Q-Lax 2 tab, Route: PO, Drug Form: TAB, Dosing Weight 88.324, kg, Daily, PRN Constipation, Start date: 07/21/17 9:00:00 CDT, Stop date: 08/19/17 9:00:00 CDTNotes: (Same as Senokot-S) Equiv. to Meena-Colace. No Longer Active 07/21/2017 [facility] mineral oil 100 mL, Route: MN, Drug Form: LIQ, ONCE, Start date: 07/21/17 8:58:00 CDT, Stop date: 07/21/17 8:58:00 CDTNotes: (Same as:Mineral Oil, Light) Inactive 07/21/2017 [facility] Glycerol 100 mL, Route: MN, Drug Form: MISC, ONCE, Start date: 07/21/17 8:58:00 CDT, Stop date: 07/21/17 8:58:00 CDTNotes: (Same as: Osmoglyn) Inactive 07/21/2017 [facility] Sodium Chloride 0.9% IV MN, 0 ml/hr, ONCE, Start date: 07/21/17 8:58:00 CDT, 100 ml Inactive 07/21/2017 [facility] SMOG Enema 300 ml, Route: MN, Dosing Weight 88.324, kg, ONCE, Start date: 07/21/17 8:54:00 CDT, Duration: 1 doses or times, Stop date: 07/21/17 8:54:00 CDT Inactive 07/21/2017 [facility] Lovenox 40 mg, 0.4 mL, Route: SUB-Q, Drug form: INJ, [id number], Dosing Weight 88.324, kg, Start date: 07/20/17 21:00:00 CDT, Duration: 30 day, Stop date: 08/18/17 21:00:00 CDTNotes: (Same as: Lovenox) No Longer Active 07/21/2017 [facility] Robaxin 1,000 mg, 10 mL, Route: IV, Drug form: INJ, Q8H, Dosing Weight 88.324, kg, Start date: 07/20/17 16:00:00 CDT, Duration: 30 day, Stop date: 08/19/17 8:00:00 CDTNotes: (Same as:Robaxin) No Longer Active 07/20/2017 [facility] Acetaminophen 1,000 mg, 100 mL, Route: IV, Drug form: INJ, Q6Hnow, Dosing Weight 88.324, kg, Start date: 07/20/17 13:00:00 CDT, Duration: 30 day, Stop date: 08/19/17 7:00:00 CDTNotes: Infuse over 15 minutes Do not e xceed 4gm/day of acetaminophen MEDICATION WASTE Product Size: 1000 mg Product Wasted: _0_ mg No Longer Active 07/20/2017 [facility] Reglan 10 mg, 2 mL, Route: IVP, Drug form: INJ, Q6H, Dosing Weight 88.324, kg, Start date: 07/20/17 12:00:00 CDT, Duration: 3 day, Stop date: 07/23/17 6:00:00 CDTNotes: (Same as: Reglan) No Longer Active 07/20/2017 [facility] Tramadol 50 mg, 1 tab, Route: PO, Drug form: TAB, Q8Hnow, Dosing Weight 88.324, kg, PRN Pain Score 4-6, Start date: 07/20/17 10:30:00 CDT, Stop date: 08/19/17 2:30:00 CDTNotes: Not to exceed 400mg/day. (Same As: Ultram) No Longer Active 07/20/2017 [facility] gabapentin 100 MG Oral Capsule 100 mg, 1 cap, Route: PO, Drug form: CAP, Q8Hnow, Dosing Weight 88.324, kg, Start date: 07/20/17 10:30:00 CDT, Duration: 30 day, Stop date: 08/19/17 2:30:00 CDTNotes: (Same as: Neurontin) No Longer Active 07/20/2017 [facility] Plavix 75 mg, 1 tab, Route: PO, Drug form: TAB, Daily, Dosing Weight 88.324, kg, Start date: 07/20/17 10:00:00 CDT, Duration: 30 day, Stop date: 08/19/17 9:00:00 CDTNotes: (Same As: Plavix) No Longer Active 07/20/2017 [facility] pantoprazole 40 mg, 1 tab, Route: PO, Drug form: ECTAB, Daily, Dosing Weight 88.324, kg, Start date: 07/20/17 9:00:00 CDT, Duration: 30 day, Stop date: 08/18/17 9:00:00 CDTNotes: Tablet should not be chewed or cr ushed. (Same as: Protonix) Inactive 07/20/2017 [facility] aspirin 81 mg tablet, enteric coated 162 mg, 2 tab, Route: PO, Drug form: ECTAB, Daily, Dosing Weight 88.324, kg, Start date: 07/20/17 9:00:00 CDT, Duration: 30 day, Stop date: 08/18/17 9:00:00 CDTNotes: Do not crush or chew. (Same As: Ecotrin) No Longer Active 07/20/2017 [facility] Vancomycin 1.25 gm, 250 mL, Route: IVPB, Drug form: INJ, [id number], Dosing Weight 88.324, kg, Time Critical Medication, Start date: 07/20/17 3:00:00 CDT, Duration: 2 doses or times, Stop date: 07/20/17 15:00:00 C DT, ABX Indication: Surgical ProphylaxisNotes: TIME CRITICAL MEDICATION Same as: Vancocin-NS (premixed) Infusion rate 2001 mg: infuse over 2.5 hours Inactive 07/20/2017 [facility] Cefazolin 2 gm, 100 mL, Route: IVPB, Drug form: INJ, [id number], Dosing Weight 88.324, kg, Start date: 07/20/17 2:30:00 CDT, Duration: 3 doses or times, Stop date: 07/20/17 18:30:00 CDT, ABX Indication: Surgical P rophylaxisNotes: Same as: Ancef Inactive 07/20/2017 [facility] Hydromorphone 15 mg, 30 mL, Route: IV, Initial Loading Dose: 0.4mg, CORE DROPPER Dose: 0.2 mg, CORE DROPPER Lockout: 10 minutes, Continuous Basal Rate: 0 mg, 4 Hour Limit (In MG): 6, Drug Form: INJ, Continuous, Start date: 07/20/17 1:30:00 CDT, Duration: 30 day, Stop date: 08/19/17...Notes: (Same as: Dilaudid) conc=0.5 mg/ml Hydromorphone CORE DROPPER Dose: ;Delay: ;Basal: No Longer Active 07/20/2017 [facility] Naloxone 0.04 mg, 0.1 mL, Route: IVP, Drug form: INJ, Q2MIN, Dosing Weight 88.324, kg, PRN Narcotic Reversal, Start date: 07/20/17 1:28:00 CDT, Duration: 30 day, Stop date: 08/19/17 1:27:00 CDTNotes: Same as Narcan No Longer Active 07/20/2017 [facility] Zofran 4 mg, Route: IVP, Drug form: INJ, ONCE, Dosing Weight 88.324, kg, Priority: NOW, Start date: 07/20/17 0:24:00 CDT, Stop date: 07/20/17 0:24:00 CDT Inactive 07/20/2017 [facility] Fentanyl 50 microgram, 1 mL, Route: IVP, Drug form: INJ, ONCE, Dosing Weight 88.324, kg, Start date: 07/20/17 0:15:00 CDT, Stop date: 07/20/17 0:15:00 CDTNotes: (Same as: Sublimaze) Preservative free. Inactive 07/20/2017 [facility] ocular lubricant 1 appl, Route: BOTH EYES, Q6H, Drug form: OINT, Start date: 07/20/17 0:00:00 CDT, Duration: 30 day, Stop date: 08/18/17 18:00:00 CDTNotes: (Same as: Lacri-Lube, Duratears Naturale, Artificial Tears, and Tears Again ) Inactive 07/20/2017 [facility] Isolyte S PH-7.4 (Bolus) IV 1,000 mL, 1000 ml/hr, Route: IV, Drug Form: SOLN, Dosing Weight 88.324, kg, ONCE, NOW, Start date: 07/19/17 23:57:00 CDT, Stop date: 07/19/17 23:57:00 CDTNotes: (Same as: Isolyte S PH 7.4) No Longer Active 07/20/2017 [facility] albumin human 5% intravenous solution 12.5 gm, 250 mL, 500 ml/hr, Route: IV, Drug Form: INJ, Dosing Weight 88.324, kg, ONCE, Start date: 07/19/17 22:42:00 CDT, Stop date: 07/19/17 22:42:00 CDTNotes: LOT#: Mfg: WASTE: F/P - Red; E -Red (Same as: Albuminar) "blood product derivative" Inactive 07/20/2017 [facility] albumin human 5% intravenous solution 12.5 gm, 250 mL, 500 ml/hr, Route: IV, Drug Form: INJ, Dosing Weight 88.324, kg, ONCE, Start date: 07/19/17 22:08:00 CDT, Stop date: 07/19/17 22:08:00 CDTNotes: LOT#: Mfg: WASTE: F/P - Red; E -Red (Same as: Albuminar) "blood product derivative" Inactive 07/20/2017 [facility] atorvastatin 40 mg, Route: PO, Drug form: TAB, Bedtime, Dosing Weight 88.324, kg, Start date: 07/19/17 21:00:00 CDT, Duration: 30 day, Stop date: 08/17/17 21:00:00 CDT Inactive 07/20/2017 [facility] chlorhexidine gluconate 1.2 MG/ML Mouthwash 15 mL, Route: Swab Mouth, Q12H, Drug form: LIQ, Start date: 07/19/17 21:00:00 CDT, Duration: 30 day, Stop date: 08/18/17 9:00:00 CDTNotes: (Same As: Peridex) No Longer Active 07/20/2017 [facility] Albuterol 0.833 MG/ML / Ipratropium [place] 0.167 MG/ML Inhalant Solution [DuoNeb] 3 ml, Route: NEB, Drug Form: SOLN, Dosing Weight 88.324, kg, PRN, PRN Respiratory Protocol, Start date: 07/19/17 20:50:00 CDT, Duration: 30 day, Stop date: 08/18/17 20:49:00 CDTNotes: (Same as: Duoneb) No Longer Active 07/20/2017 [facility] Isolyte S PH-7.4 (Bolus) IV 1,000 mL, 1000 ml/hr, Route: IV, Drug Form: SOLN, Dosing Weight 88.324, kg, ONCE, Start date: 07/19/17 20:47:00 CDT, Stop date: 07/19/17 20:47:00 CDTNotes: (Same as: Isolyte S PH 7.4) Inactive 07/20/2017 [facility] niCARdipine 40 mg/ NS 200 ml IV Soln (premix) 40 mg 40 mg, 200 mL, Rate: Titrate, Start Dose: 5 mg/hr, Titration: 2.5 mg/hr every 15 minutes, Goal(s): SBP Notes: Same as: Cardene Concentration: (0.2 mg /1 ml ) No Longer Active 07/20/2017 [facility] Fentanyl 25 microgram, 0.5 mL, Route: IV, Drug form: INJ, Q2H, Dosing Weight 88.324, kg, PRN Pain Score 4-6, Start date: 07/19/17 19:17:00 CDT, Duration: 30 day, Stop date: 08/18/17 19:16:00 CDTNotes: (Same as: Sublimaze) Preservative free. No Longer Active 07/20/2017 [facility] chlorhexidine gluconate 1.2 MG/ML Mouthwash 15 mL, Route: Swab Mouth, PRN, Drug form: LIQ, PRN Other -See Comment, Start date: 07/19/17 19:16:00 CDT, Duration: 30 day, Stop date: 08/18/17 19:15:00 CDTNotes: (Same As: Peridex) No Longer Active 07/20/2017 [facility] Isolyte S PH-7.4 (Bolus) IV 1,000 mL, Route: IV, Drug Form: SOLN, Dosing Weight 88.324, kg, ONCE, NOW, Start date: 07/19/17 19:12:00 CDT, Stop date: 07/19/17 19:12:00 CDTNotes: (Same as: Isolyte S PH 7.4) Inactive 07/20/2017 [facility] Magnesium Oxide 800 mg, 2 tab, Route: PO, Drug form: TAB, PRN, Dosing Weight 88.324, kg, PRN Abnormal Lab Result, FOR ICU USE ONLY, Start date: 07/19/17 18:37:00 CDT, Duration: 30 day, Stop date: 08/18/17 18:36:00 C DTNotes: (Same as: Mag-Ox 400) Magnesium oxide [id number] elemental magnesium Dose=____mg magnesium oxide (___mg elemental magnesium) No Longer Active 07/19/2017 [facility] Magnesium Sulfate 2 gm, 50 mL, Route: IVPB, Drug form: INJ, PRN, Dosing Weight 88.324, kg, PRN Abnormal Lab Result, Start date: 07/19/17 18:37:00 CDT, Duration: 30 day, Stop date: 08/18/17 18:36:00 CDT, FOR ICU USE ONLYNotes: WASTE: F/P - Sink; E - Municipal Trash Bin No Longer Active 07/19/2017 [facility] potassium phosphate-sodium phosphate 250 mg-280 mg-160 mg oral powder for reconstitution 2 pkt, Route: PO, Drug Form: PDR/REC, Dosing Weight 88.324, kg, PRN, PRN Abnormal Lab Result, FOR ICU USE ONLY, Start date: 07/19/17 18:37:00 CDT, Duration: 30 day, Stop date: 08/18/17 18:36:00 CDTNotes: (Same as: Phos-NaK) Each 1.5 gm pkt has 250mg phosphorous. Mix w/2.5oz water and stir. No Longer Active 07/19/2017 [facility] potassium phosphate 45 mmol, 15 mL, Route: IVPB, PRN, Dosing Weight 88.324, kg, PRN Abnormal Lab Result, Start date: 07/19/17 18:37:00 CDT, Duration: 30 day, Stop date: 08/18/17 18:36:00 CDT, FOR ICU USE ONLYNotes: (Same as: K Phosphate.) 1 mMol phoshate has 1.47 mEq potassium Infuse over 4 hours No Longer Active 07/19/2017 [facility] Calcium Gluconate 1 gm, 10 mL, Route: IVPB, PRN, Dosing Weight 88.324, kg, PRN Abnormal Lab Result, Start date: 07/19/17 18:37:00 CDT, Duration: 30 day, Stop date: 08/18/17 18:36:00 CDT, FOR ICU USE ONLYNotes: WASTE: F/P - Sink; E - Municipal Trash Bin No Longer Active 07/19/2017 [facility] Calcium Carbonate 500 MG Chewable Tablet 1,000 mg, 2 tab, Route: PO, Drug form: CHEWTAB, PRN, Dosing Weight 88.324, kg, PRN Abnormal Lab Result, FOR ICU USE ONLY, Start date: 07/19/17 18:37:00 CDT, Duration: 30 day, Stop date: 08/18/17 18:36:00 CDTNotes: (Same As: Tumsophia) Calcium Carbonate 500 iz=190 mg elemental calcium Dose= mg calcium carbonate ( mg elemental calcium) No Longer Active 07/19/2017 [facility] Insulin regular 100 unit + 99 mL, Rate: Start Insulin Drip Per ICU Protocol, Dosing Weight 88.324, kg, Route: IVPB, Total Volume: 100, Start Date: 07/19/17 18:37:00 CDT, Stop date: 07/21/17 13:46:00 CDT, Replace Every: 24 hrNotes: Final Concentration 1unit/1ml WASTE: F/P - Black; E - Municipal Trash Bin No Longer Active 07/19/2017 [facility] Dextrose 50% Syringe 25 gm, 50 mL, Route: IVP, Drug Form: INJ, Dosing Weight 88.324, kg, PRN, PRN Blood Glucose Results, Start date: 07/19/17 18:37:00 CDT, Duration: 30 day, Stop date: 08/18/17 18:36:00 CDT No Longer Active 07/19/2017 [facility] Potassium Chloride 10 mEq, 50 mL, Route: IVPB, Drug form: INJ, PRN, Dosing Weight 88.324, kg, PRN Abnormal Lab Result, Via peripheral line, Start date: 07/19/17 18:37:00 CDT, Duration: 30 day, Stop date: 08/18/17 18:36:00 CDT, FOR ICU USE ONLYNotes: (Same as: KCL) Infuse over 2 hours. No Longer Active 07/19/2017 [facility] sodium phosphate 30 mmol, Route: IVPB, PRN, Dosing Weight 88.324, kg, PRN Abnormal Lab Result, Start date: 07/19/17 18:37:00 CDT, Duration: 30 day, Stop date: 08/18/17 18:36:00 CDT, FOR ICU USE ONLY Inactive 07/19/2017 [facility] calcium gluconate (ANES) Route: IV, Drug form: INJ, ONCE, Stop date: 07/19/17 18:24:00 CDT Inactive 07/19/2017 [facility] protamine (ANES) Route: IV, Drug form: INJ, ONCE, Stop date: 07/19/17 18:14:00 CDT Inactive 07/19/2017 [facility] magnesium sulfate (ANES) Route: IV, Drug form: INJ, ONCE, Stop date: 07/19/17 17:58:00 CDT Inactive 07/19/2017 [facility] Insulin regular (ANES) (ANES) Route: IV, Drug form: INJ, Start date: 07/19/17 17:32:00 CDT, Stop date: 07/19/17 18:32:00 CDT Inactive 07/19/2017 [facility] Insulin regular (ANES) Route: IV, Drug form: INJ, ONCE, Stop date: 07/19/17 17:18:00 CDT Inactive 07/19/2017 [facility] esmolol (ANES) Route: IV, Drug form: INJ, ONCE, Stop date: 07/19/17 16:28:00 CDT Inactive 07/19/2017 [facility] heparin (ANES) Route: IV, Drug form: INJ, ONCE, Stop date: 07/19/17 16:23:00 CDT Inactive 07/19/2017 [facility] ceFAZolin (ANES) Route: IV, Drug form: INJ, ONCE, Stop date: 07/19/17 15:33:00 CDT Inactive 07/19/2017 [facility] vancomycin (ANES) (ANES) Route: IV, Drug form: INJ, Start date: 07/19/17 14:51:00 CDT, Stop date: 07/19/17 15:51:00 CDT Inactive 07/19/2017 [facility] lidocaine (ANES) Route: IV, Drug form: INJ, ONCE, Stop date: 07/19/17 14:48:00 CDT Inactive 07/19/2017 [facility] sodium chloride 0.9% 500 ml INJ (ANES) + tranexamic acid (ANES) (ANES) Route: IV, Drug form: INJ, Start date: 07/19/17 14:45:00 CDT, Stop date: 07/19/17 15:45:00 CDT Inactive 07/19/2017 [facility] rocuronium (ANES) Route: IV, Drug form: INJ, ONCE, Stop date: 07/19/17 14:43:00 CDT Inactive 07/19/2017 [facility] fentaNYL (ANES) Route: IV, Drug form: INJ, ONCE, Stop date: 07/19/17 14:43:00 CDT Inactive 07/19/2017 [facility] midazolam (ANES) Route: IV, Drug form: SOLN, ONCE, Stop date: 07/19/17 14:43:00 CDT Inactive 07/19/2017 [facility] propofol (ANES) Route: IV, Drug form: INJ, ONCE, Stop date: 07/19/17 14:43:00 CDT Inactive 07/19/2017 [facility] sodium chloride 0.9% 1000 ml INJ (ANES) Route: IV, Total Volume: 1,000, Start date: 07/19/17 14:00:00 CDT, Stop date: 07/19/17 15:00:00 CDT Inactive 07/19/2017 [facility] Isolyte S (PH 7.4) 1000 mL 1,000 mL 1,000 mL, Rate: 100 ml/hr, Infuse over: 10 hr, Route: IV, Dosing Weight 91.364 kg, Total Volume: 1,000, Start date: 07/19/17 0:01:00 CDT, Duration: 30 day, Stop date: 08/18/17 0:00:00 CDTNotes: (Same as: Isolyte S PH 7.4) No Longer Active 07/19/2017 [facility] heparin sodium, porcine 2500 UNT/ML Injectable Solution 5,000 unit, 1 mL, Route: SUB-Q, Drug form: INJ, Q8H, Dosing Weight 91.364, kg, Start date: 07/18/17 16:00:00 CDT, Duration: 30 day, Stop date: 08/17/17 8:00:00 CDTNotes: porcine heparin No Longer Active 07/18/2017 [facility] Electrolyte Solution 1000 mL 1,000 mL, Rate: 100 ml/hr, Infuse over: 10 hr, Route: IV, Dosing Weight 91.364 kg, Total Volume: 1,000, Start date: 07/18/17 12:32:00 CDT, Duration: 30 day, Stop date: 08/17/17 12:31:00 CDT Inactive 07/18/2017 [facility] Pletal 100 mg, 2 tab, Route: PO, Drug form: TAB, BID, Dosing Weight 91.364, kg, Start date: 07/17/17 9:00:00 CDT, Duration: 30 day, Stop date: 08/15/17 17:00:00 CDTNotes: Non-Formulary Drug. (Same As: Pletal) No Longer Active 07/17/2017 [facility] Losartan 25 mg, Route: PO, Drug form: TAB, Daily, Dosing Weight 91.364, kg, Start date: 07/16/17 9:00:00 CDT, Duration: 30 day, Stop date: 08/14/17 9:00:00 CDT No Longer Active 07/16/2017 [facility] Losartan 25 mg, 1 tab, Route: PO, Drug form: TAB, ONCE, Dosing Weight 91.364, kg, Start date: 07/15/17 15:31:00 CDT, Stop date: 07/15/17 15:31:00 CDTNotes: (Same as: Fernanda) Inactive 07/15/2017 [facility] Bystolic 20 mg, 4 tab, Route: PO, Drug form: TAB, Daily, Dosing Weight 91.364, kg, Start date: 07/13/17 9:00:00 CDT, Stop date: 08/11/17 9:00:00 CDTNotes: (same as: Bystolic) No Longer Active 07/13/2017 [facility] Losartan 50 mg, 1 tab, Route: PO, Drug form: TAB, Daily, Dosing Weight 91.364, kg, Start date: 07/13/17 9:00:00 CDT, Stop date: 08/11/17 9:00:00 CDTNotes: (Same as: Cozaar) No Longer Active 07/13/2017 [facility] aspirin 81 mg tablet, enteric coated 81 mg, 1 tab, Route: PO, Drug form: ECTAB, Daily, Dosing Weight 91.364, kg, Start date: 07/13/17 9:00:00 CDT, Duration: 30 day, Stop date: 08/11/17 9:00:00 CDTNotes: Do not crush or chew. (Same As: Ecotrin) No Longer Active 07/13/2017 [facility] Crestor 20 mg, 2 tab, Route: PO, Drug form: TAB, Bedtime, Dosing Weight 91.364, kg, Start date: 07/12/17 21:37:00 CDT, Duration: 30 day, Stop date: 08/11/17 21:00:00 CDTNotes: (Same As: Crestor) No Longer Active 07/13/2017 [facility] rosuvastatin 20 mg, 2 tab, Route: PO, Drug form: TAB, Bedtime, Dosing Weight 91.364, kg, Start date: 07/12/17 21:00:00 CDT, Stop date: 08/10/17 21:00:00 CDTNotes: (Same As: Crestor) Inactive 07/13/2017 [facility] [place]-3 Acid Ethyl Esters (SKILLED NURSING) 1000 MG Oral Capsule [Lovaza] 2,000 mg, 2 cap, Route: PO, Drug Form: CAP, Dosing Weight 91.364, kg, BID, Start date: 07/12/17 17:00:00 CDT, Duration: 30 day, Stop date: 08/11/17 9:00:00 CDTNotes: (Same as: MaxEPA, [place] 3 fish oil ) Non-Formulary Drug No Longer Active 07/12/2017 [facility] cilostazol 100 mg, 2 tab, Route: PO, Drug form: TAB, BID, Dosing Weight 91.364, kg, Start date: 07/12/17 17:00:00 CDT, Stop date: 08/11/17 9:00:00 CDTNotes: Non-Formulary Drug. (Same As: Pletal) No Longer Active 07/12/2017 [facility] Calcium Gluconate 3 gm, 30 mL, Route: IVPB, PRN, Dosing Weight 91.364, kg, PRN Abnormal Lab Result, For NON-ICU Patients Only., Start date: 07/12/17 14:48:00 CDT, Duration: 30 day, Stop date: 08/11/17 14:47:00 CDTNotes: WASTE: F/P - Sink; E - Municipal Trash Bin No Longer Active 07/12/2017 [facility] sodium phosphate 30 mmol, 10 mL, Route: IVPB, PRN, Dosing Weight 91.364, kg, PRN Abnormal Lab Result, For NON-ICU Patients Only., Start date: 07/12/17 14:48:00 CDT, Duration: 30 day, Stop date: 08/11/17 14:47:00 CDT No Longer Active 07/12/2017 [facility] Magnesium Sulfate 1 gm, 100 mL, Route: IVPB, Drug form: INJ, PRN, Dosing Weight 91.364, kg, PRN Abnormal Lab Result, For NON-ICU Patients Only., Start date: 07/12/17 14:48:00 CDT, Duration: 30 day, Stop date: 08/11/17 14:47:00 CDTNotes: WASTE: F/P - Sink; E - Municipal Trash Bin No Longer Active 07/12/2017 [facility] Magnesium Oxide 800 mg, 2 tab, Route: PO, Drug form: TAB, PRN, Dosing Weight 91.364, kg, PRN Abnormal Lab Result, For NON-ICU Patients Only., Start date: 07/12/17 14:48:00 CDT, Duration: 30 day, Stop date: 08/11/17 14:47:00 CDTNotes: (Same as: Mag-Ox 400) Magnesium oxide [id number] elemental magnesium Dose=____mg magnesium oxide (___mg elemental magnesium) No Longer Active 07/12/2017 [facility] Potassium Chloride 20 mEq, 15 mL, Route: NJ, Drug form: LIQ, PRN, Dosing Weight 91.364, kg, PRN Abnormal Lab Result, For NON-ICU Patients Only, Start date: 07/12/17 14:48:00 CDT, Duration: 30 day, Stop date: 08/11/17 14:47:00 CDTNotes: (Same as: Potassium Chloride) No Longer Active 07/12/2017 [facility] potassium phosphate-sodium phosphate 250 mg-280 mg-160 mg oral powder for reconstitution 2 pkt, Route: PO, Drug Form: PDR/REC, Dosing Weight 91.364, kg, PRN, PRN Abnormal Lab Result, For NON-ICU Patients Only, Start date: 07/12/17 14:48:00 CDT, Duration: 30 day, Stop date: 08/11/17 14:47:00 CDTNotes: (Same as: Phos-NaK) Each 1.5 gm pkt has 250mg phosphorous. Mix w/2.5oz water and stir. No Longer Active 07/12/2017 [facility] potassium phosphate 15 mmol, 5 mL, Route: IVPB, PRN, Dosing Weight 91.364, kg, PRN Abnormal Lab Result, For NON-ICU Patients Only., Start date: 07/12/17 14:48:00 CDT, Duration: 30 day, Stop date: 08/11/17 14:47:00 CDTNotes: (Same as: K Phosphate.) 1 mMol phoshate has 1.47 mEq potassium Infuse over 4 hours No Longer Active 07/12/2017 [facility] Dextrose 50% Syringe 12.5 gm, 25 mL, Route: IVP, Drug Form: INJ, Dosing Weight 91.364, kg, PRN, PRN Blood Glucose Results, Start date: 07/12/17 11:53:00 CDT, Duration: 30 day, Stop date: 08/11/17 11:52:00 CDT No Longer Active 07/12/2017 [facility] Insulin Lispro 5 unit, 0.05 mL, Route: SUB-Q, Drug form: SOLN, TID-Before Meals, Dosing Weight 91.364, kg, PRN Blood Glucose Results, Start date: 07/12/17 11:53:00 CDT, Duration: 30 day, Stop date: 08/11/17 11:52:0 0 CDTNotes: (Same as: Humalog ) Roll in palms of hands gently; Do not shake `vigorously. "Single Patient Use Only " (Restricted to patients requiring a dose > 60 units) WASTE: F/P - Black; E - Municipal Trash Bin Stable for 28 days at room temperature. Expires in days from Date No Longer Active 07/12/2017 [facility] Glucagon 1 mg, Route: IM, Drug form: PDR/INJ, PRN, Dosing Weight 91.364, kg, PRN Blood Glucose Results, Start date: 07/12/17 11:53:00 CDT, Duration: 30 day, Stop date: 08/11/17 11:52:00 CDT No Longer Active 07/12/2017 [facility] Lidocaine 25 MG/ML / Prilocaine 25 MG/ML Topical Cream [EMLA] 1 appl, Route: TOP, ONCE, Drug form: CRM, Start date: 07/12/17 7:37:00 CDT, Stop date: 07/12/17 7:37:00 CDTNotes: Apply to desired area 2 hrs prior to needle insertion. (Same as: Emla) Inactive 07/12/2017 [facility] sodium chloride 0.9% 1000 ml INJ 1000 mL 1,000 mL, Rate: 125 ml/hr, Infuse over: 8 hr, Route: IV, Dosing Weight 91.364 kg, Total Volume: 1,000, Start date: 07/12/17 7:36:00 CDT, Duration: 1 day, Stop date: 07/13/17 15:01:00 CDT No Longer Active 07/12/2017 [facility] rosuvastatin 20 mg, Route: PO, Drug form: TAB, Bedtime, Dosing Weight 94.091, kg, Start date: 04/21/16 21:00:00 CDT, Duration: 30 day, Stop date: 05/20/16 21:00:00 CDT Inactive 04/22/2016 [facility] Acetaminophen 300 MG / Codeine Phosphate 30 MG Oral Tablet [Tylenol with Codeine #3] 1 - 2 tab, PO, Q4H, PRN Pain, not to exceed 4000 mg acetaminophen per day, X 4 day, # 50 tab, 0 Refill(s) Active 04/21/2016 [facility] Aspirin 81 MG Enteric Coated Tablet 81 mg=1 tab, PO, Daily, 0 Refill(s) Active 04/21/2016 [facility] Aspirin 81 MG Enteric Coated Tablet 81 mg, 1 tab, Route: PO, Drug form: ECTAB, Daily, Dosing Weight 94.091, kg, Start date: 04/21/16 9:00:00 CDT, Duration: 30 day, Stop date: 05/20/16 9:00:00 CDTNotes: Do not crush or chew. (Same As: Ecotrin) Inactive 04/21/2016 [facility] Bystolic 20 mg, 4 tab, Route: PO, Drug form: TAB, Daily, Dosing Weight 94.091, kg, Start date: 04/21/16 9:00:00 CDT, Duration: 30 day, Stop date: 05/20/16 9:00:00 CDTNotes: (same as: Bystolic) Inactive 04/21/2016 [facility] pneumococcal capsular polysaccharide type 1 vaccine / pneumococcal capsular polysaccharide type 10A vaccine / pneumococcal capsular polysaccharide type 11A vaccine / pneumococcal capsular polysaccharide type 12F vaccine / pneumococcal capsular polysacchar 0.5 mL, Route: IM, Drug Form: INJ, Daily, Start date: 04/21/16 9:00:00 CDT, Duration: 1 doses or times, Stop date: 04/21/16 9:00:00 CDTNotes: (Same as: Pneumovax 23) Refrigerate Inactive 04/21/2016 [facility] Losartan 25 mg, 1 tab, Route: PO, Drug form: TAB, Daily, Dosing Weight 94.091, kg, Start date: 04/21/16 9:00:00 CDT, Duration: 30 day, Stop date: 05/20/16 9:00:00 CDTNotes: (Same as: Cozaar) Inactive 04/21/2016 [facility] glimepiride 4 mg, 1 tab, Route: PO, Drug form: TAB, Daily, Dosing Weight 94.091, kg, Start date: 04/21/16 9:00:00 CDT, Duration: 30 day, Stop date: 05/20/16 9:00:00 CDTNotes: (Same as: Amaryl) Inactive 04/21/2016 [facility] heparin 5,000 unit, 1 mL, Route: SUB-Q, Drug form: INJ, Q8H, Dosing Weight 94.091, kg, Start date: 04/21/16 0:00:00 CDT, Duration: 30 day, Stop date: 05/20/16 16:00:00 CDTNotes: porcine heparin Inactive 04/21/2016 [facility] Ancef 1 gm, Route: IVPB, Drug form: PDR/INJ, Q8H, Dosing Weight 94.091, kg, Start date: 04/20/16 22:00:00 CDT, Duration: 1 day, Stop date: 04/21/16 14:00:00 CDTNotes: (Same As: Ancef, Kefzol) MEDICATION WASTE Product Size: 1000 mg Product Wasted: _0_ mg No Longer Active 04/21/2016 [facility] Lipitor 40 mg, 1 tab, Route: PO, Drug form: TAB, Bedtime, Start date: 04/20/16 21:00:00 CDT, Duration: 30 day, Stop date: 05/19/16 21:00:00 CDTNotes: (Same as: Lipitor) No Longer Active 04/21/2016 [facility] rosuvastatin 20 mg, Route: PO, Drug form: TAB, Bedtime, Dosing Weight 94.091, kg, Start date: 04/20/16 21:00:00 CDT, Duration: 30 day, Stop date: 05/19/16 21:00:00 CDT Inactive 04/21/2016 [facility] Docusate 100 mg, 1 cap, Route: PO, Drug form: CAP, BID, Dosing Weight 94.091, kg, Start date: 04/20/16 17:00:00 CDT, Duration: 30 day, Stop date: 05/20/16 9:00:00 CDTNotes: (Same as: Colace) (Do Not Crush) No Longer Active 04/20/2016 [facility] Insulin, Aspart, Human 4 unit, 0.04 mL, Route: SUB-Q, Drug form: SOLN, TID-Before Meals, Dosing Weight 94.091, kg, PRN Blood Glucose Results, Start date: 04/20/16 16:22:00 CDT, Duration: 30 day, Stop date: 05/20/16 16:21:00 CDTNotes: Roll in palms of hands gently; Do not shake vigorously. (Same as: NovoLOG) "single patient use only" WASTE: F/P - Black; E - Municipal Trash Bin Stable for 28 days at room temperature. Expires in days from Date No Longer Active 04/20/2016 [facility] Glucagon 1 mg, Route: IM, Drug form: PDR/INJ, PRN, Dosing Weight 94.091, kg, PRN Blood Glucose Results, Start date: 04/20/16 16:22:00 CDT, Duration: 30 day, Stop date: 05/20/16 16:21:00 CDT No Longer Active 04/20/2016 [facility] Dextrose 50% Syringe 12.5 gm, 25 mL, Route: IVP, Drug Form: INJ, Dosing Weight 94.091, kg, PRN, PRN Blood Glucose Results, Start date: 04/20/16 16:22:00 CDT, Duration: 30 day, Stop date: 05/20/16 16:21:00 CDT No Longer Active 04/20/2016 [facility] Zofran 4 mg, 2 mL, Route: IV, Drug form: INJ, Q4H, Dosing Weight 94.091, kg, PRN Nausea, Start date: 04/20/16 16:21:00 CDT, Duration: 30 day, Stop date: 05/20/16 16:20:00 CDTNotes: (Same as: Zofran) MEDICATION WASTE Product Size: 4 mg Product Wasted: ___ mg No Longer Active 04/20/2016 [facility] Dilaudid 0.2 mg, 0.1 mL, Route: IV, Drug form: INJ, Q4H, Dosing Weight 94.091, kg, PRN Pain Score 7-10, Start date: 04/20/16 16:20:00 CDT, Duration: 30 day, Stop date: 05/20/16 16:19:00 CDTNotes: Same as: Dilaudid No Longer Active 04/20/2016 [facility] Aspirin 81 mg, 1 tab, Route: PO, Drug form: ECTAB, ONCE, Dosing Weight 94.091, kg, Start date: 04/20/16 16:20:00 CDT, Stop date: 04/20/16 16:20:00 CDTNotes: Do not crush or chew. (Same As: Ecotrin) Inactive 04/20/2016 [facility] Hydralazine 10 mg, 0.5 mL, Route: IV, Drug form: INJ, Q2H, Dosing Weight 94.091, kg, PRN Elevated BP, Start date: 04/20/16 16:20:00 CDT, Duration: 30 day, Stop date: 05/20/16 16:19:00 CDTNotes: (Same as: Apresoline) Push over 5 minutes No Longer Active 04/20/2016 [facility] Saline Flush 0.9% 10 ml, Route: IVP, Drug Form: INJ, Dosing Weight 94.091, kg, PRN, PRN Line Flush, Start date: 04/20/16 16:17:00 CDT, Duration: 30 day, Stop date: 05/20/16 16:16:00 CDTNotes: (Same as: BD Posiflush) No Longer Active 04/20/2016 [facility] Ondansetron 4 mg, 2 mL, Route: IVP, Drug form: INJ, Q6H, Dosing Weight 94.091, kg, PRN Nausea & Vomiting, Start date: 04/20/16 16:17:00 CDT, Duration: 30 day, Stop date: 05/20/16 16:16:00 CDTNotes: (Same as: Zofran) MEDICATION WASTE Product Size: 4 mg Product Wasted: ___ mg No Longer Active 04/20/2016 [facility] Sodium Chloride 0.154 MEQ/ML Injectable Solution 1,000 mL, Rate: 125 ml/hr, Infuse over: 8 hr, Route: IV, Dosing Weight 94.091 kg, Total Volume: 1,000, Start date: 04/20/16 16:17:00 CDT, Duration: 30 day, Stop date: 05/20/16 16:16:00 CDT No Longer Active 04/20/2016 [facility] Acetaminophen 325 MG / Hydrocodone Bitartrate 5 MG Oral Tablet 1 tab, Route: PO, Drug Form: TAB, Dosing Weight 94.091, kg, Q4H, PRN Pain Score 4-6, Start date: 04/20/16 16:17:00 CDT, Duration: 30 day, Stop date: 05/20/16 16:16:00 CDTNotes: (Same as: [place] 325/5) Do not exceed 4gm/day of acetaminophen. No Longer Active 04/20/2016 [facility] ondansetron (ANES) Route: IV, Drug form: INJ, ONCE, Stop date: 04/20/16 15:42:00 CDT Inactive 04/20/2016 [facility] EPINEPHrine (ANES) Route: IV, Drug form: INJ, ONCE, Stop date: 04/20/16 15:42:00 CDT Inactive 04/20/2016 [facility] Ondansetron 4 mg, 2 mL, Route: IVP, Drug form: INJ, ONCE, Dosing Weight 94.091, kg, PRN Nausea & Vomiting, Start date: 04/20/16 15:08:00 CDTNotes: (Same as: Suhas) MEDICATION WASTE Product Size: 4 mg Product Wasted: ___ mg No Longer Active 04/20/2016 [facility] Fentanyl 25 microgram, 0.5 mL, Route: IVP, Drug form: INJ, Q5Min, Dosing Weight 94.091, kg, PRN Pain Score 4-6, Start date: 04/20/16 15:08:00 CDT, Duration: 4 doses or times, Stop date: Limited # of timesNotes: (Same as: Sublimaze) Preservative free. No Longer Active 04/20/2016 [facility] Metoprolol 1 mg, 1 mL, Route: IVP, Drug form: INJ, Q5Min, Dosing Weight 94.091, kg, PRN Other -See Comment, Start date: 04/20/16 15:08:00 CDT, Duration: 5 doses or times, Stop date: Limited # of timesNotes: (Same as: Lopressor) Push over 2 minutes No Longer Active 04/20/2016 [facility] Labetalol 10 mg, 2 mL, Route: IVP, Drug form: INJ, Q5Min, Dosing Weight 94.091, kg, PRN Elevated BP, Start date: 04/20/16 15:08:00 CDT, Duration: 5 doses or times, Stop date: Limited # of times No Longer Active 04/20/2016 [facility] Hydralazine 10 mg, 0.5 mL, Route: IVP, Drug form: INJ, Q20Min, Dosing Weight 94.091, kg, PRN Elevated BP, Start date: 04/20/16 15:08:00 CDT, Duration: 2 doses or times, Stop date: Limited # of timesNotes: (Same as: Apresoline) Push over 5 minutes No Longer Active 04/20/2016 [facility] protamine (ANES) (ANES) Route: IV, Drug form: INJ, Start date: 04/20/16 14:52:00 CDT, Stop date: 04/20/16 15:52:00 CDT Inactive 04/20/2016 [facility] norepinephrine (ANES) Route: IV, Drug form: INJ, ONCE, Stop date: 04/20/16 14:37:00 CDT Inactive 04/20/2016 [facility] heparin (ANES) Route: IV, Drug form: INJ, ONCE, Stop date: 04/20/16 14:07:00 CDT Inactive 04/20/2016 [facility] cisatracurium (ANES) Route: IV, Drug form: INJ, ONCE, Stop date: 04/20/16 12:57:00 CDT Inactive 04/20/2016 [facility] succinylcholine (ANES) Route: IV, Drug form: INJ, ONCE, Stop date: 04/20/16 12:57:00 CDT Inactive 04/20/2016 [facility] acetaminophen (ANES) (ANES) Route: IV, Drug form: INJ, Start date: 04/20/16 12:35:00 CDT, Stop date: 04/20/16 13:35:00 CDT Inactive 04/20/2016 [facility] niCARdipine (ANES) Route: IV, Drug form: INJ, ONCE, Stop date: 04/20/16 12:22:00 CDT Inactive 04/20/2016 [facility] metoprolol (ANES) Route: IV, Drug form: INJ, ONCE, Stop date: 04/20/16 12:17:00 CDT Inactive 04/20/2016 [facility] propofol (ANES) Route: IV, Drug form: INJ, ONCE, Stop date: 04/20/16 11:57:00 CDT Inactive 04/20/2016 [facility] fentaNYL (ANES) Route: IV, Drug form: INJ, ONCE, Stop date: 04/20/16 11:57:00 CDT Inactive 04/20/2016 [facility] ceFAZolin (ANES) Route: IV, Drug form: INJ, ONCE, Stop date: 04/20/16 11:57:00 CDT Inactive 04/20/2016 [facility] lidocaine (ANES) Route: IV, Drug form: INJ, ONCE, Stop date: 04/20/16 11:57:00 CDT Inactive 04/20/2016 [facility] Isolyte S PH 7.4 (ANES) (ANES) Route: IV, Total Volume: 1,000, Start date: 04/20/16 11:00:00 CDT, Stop date: 04/20/16 12:00:00 CDT Inactive 04/20/2016 [facility] losartan 25 mg oral tablet 25 mg=1 tab, PO, Daily, 0 Refill(s) Active 04/20/2016 [facility] rosuvastatin 20 mg oral tablet 20 mg=1 tab, PO, Bedtime, # 30 tab, 0 Refill(s) Active 04/20/2016 [facility] cilostazol 100 mg oral tablet 100 mg=1 tab, PO, BID, # 60 tab, 0 Refill(s) Active 04/20/2016 [facility] nebivolol 20 MG Oral Tablet [Bystolic] 20 mg=1 tab, PO, Daily, # 90 tab, 1 Refill(s) Active 04/20/2016 [facility] chlorhexidine gluconate 40 MG/ML Medicated Liquid Soap 1 appl, Route: Tacho [id number], Drug form: SOAP, Start date: 09/06/14 9:00:00, Duration: 30 day, Stop date: 10/04/14 9:00:00Notes: (Same As: Kulwinder) No Longer Active 09/06/2014 [facility] Acetaminophen 300 MG / Codeine Phosphate 30 MG Oral Tablet [Tylenol with Codeine #3] 1 tab, PO, Q6H, # 60 tab, 1 Refill(s) Active 09/04/2014 [facility] nebivolol 10 MG Oral Tablet [Bystolic] 10 mg=1 tab, PO, Daily, # 30 tab, 0 Refill(s) Active 09/04/2014 [facility] losartan 100 mg oral tablet 100 mg=1 tab, PO, Daily, # 30 tab, 0 Refill(s) Active 09/04/2014 [facility] clopidogrel 75 mg oral tablet 75 mg=1 tab, PO, Daily, # 60 tab, 0 Refill(s) Active 09/04/2014 [facility] atorvastatin 40 mg oral tablet 40 mg=1 tab, PO, Daily, # 30 tab, 0 Refill(s) Active 09/04/2014 [facility] Aspirin 81 MG Enteric Coated Tablet 81 mg=1 tab, PO, Daily, # 120 tab, 0 Refill(s) Active 09/04/2014 [facility] amLODIPine 10 mg oral tablet 10 mg=1 tab, PO, Daily, # 30 tab, 0 Refill(s) Active 09/04/2014 [facility] Bystolic 10 mg, 2 tab, Route: PO, Drug form: TAB, Daily, Dosing Weight 94.091, kg, Start date: 09/04/14 9:00:00, Duration: 30 day, Stop date: 10/03/14 9:00:00Notes: (same as: Bystolic) Inactive 09/04/2014 [facility] Losartan 100 mg, 2 tab, Route: PO, Drug form: TAB, Daily, Dosing Weight 94.091, kg, Start date: 09/04/14 9:00:00, Duration: 30 day, Stop date: 10/03/14 9:00:00Notes: (Same as: Cozaar) Inactive 09/04/2014 [facility] clopidogrel 75 mg, 1 tab, Route: PO, Drug form: TAB, Daily, Dosing Weight 94.091, kg, Start date: 09/04/14 9:00:00, Duration: 30 day, Stop date: 10/03/14 9:00:00Notes: (Same As: Plavix) Inactive 09/04/2014 [facility] atorvastatin 40 mg, 1 tab, Route: PO, Drug form: TAB, Daily, Dosing Weight 94.091, kg, Start date: 09/04/14 9:00:00, Duration: 30 day, Stop date: 10/03/14 9:00:00Notes: (Same as: Lipitor) Inactive 09/04/2014 [facility] Aspirin 81 MG Enteric Coated Tablet 81 mg, 1 tab, Route: PO, Drug form: ECTAB, Daily, Dosing Weight 94.091, kg, Start date: 09/04/14 9:00:00, Duration: 30 day, Stop date: 10/03/14 9:00:00Notes: Do not crush or chew. (Same As: Ecotrin) Inactive 09/04/2014 [facility] Amlodipine 10 mg, 1 tab, Route: PO, Drug form: TAB, Daily, Dosing Weight 94.091, kg, Start date: 09/04/14 9:00:00, Duration: 30 day, Stop date: 10/03/14 9:00:00Notes: (Same as: Norvasc) Inactive 09/04/2014 [facility] chlorhexidine gluconate 1.2 MG/ML Mouthwash 15 ml, Route: S&SPIT, Q12H, Drug form: LIQ, Start date: 09/03/14 21:00:00, Duration: 2 week, Stop date: 09/17/14 9:00:00Notes: (Same As: Peridex) No Longer Active 09/04/2014 [facility] Docusate Sodium 100 MG Oral Capsule 100 mg, 1 cap, Route: PO, Drug form: CAP, BID, Dosing Weight 94.091, kg, Start date: 09/03/14 17:00:00, Duration: 30 day, Stop date: 10/03/14 9:00:00Notes: (Same as: Colace) (Do Not Crush) No Longer Active 09/03/2014 [facility] heparin, porcine 5,000 unit, 1 mL, Route: SUB-Q, Drug form: INJ, Q8H, Dosing Weight 94.091, kg, Start date: 09/03/14 16:00:00, Duration: 30 day, Stop date: 10/03/14 8:00:00Notes: porcine heparin No Longer Active 09/03/2014 [facility] Dilaudid 0.5 mg, 0.25 mL, Route: IV, Drug form: INJ, ONCE, Dosing Weight 94.091, kg, PRN Pain, Start date: 09/03/14 15:49:00Notes: Same as: Dilaudid Inactive 09/03/2014 [facility] Insulin, Aspart, Human 3 unit, 0.03 mL, Route: SUB-Q, Drug form: SOLN, TID-Before Meals, Dosing Weight 94.091, kg, PRN Blood Glucose Results, Start date: 09/03/14 14:43:00, Duration: 30 day, Stop date: 10/03/14 14:42:00Notes: Roll in palms of hands gently; Do not shake vigorously. (Same as: NovoLOG) "single patient use only" Stable for 28 days at room temperature. Expires in days from Date No Longer Active 09/03/2014 [facility] Nitroglycerin 0.4 mg, 1 tab, Route: SL, Drug form: TAB, Q5Min, Dosing Weight 94.091, kg, PRN Chest Pain, Start date: 09/03/14 14:38:00, Duration: 30 day, Stop date: 10/03/14 13:37:00Notes: (Same as:Nitroquick, Nit rostat) "Do Not Crush" Sublingual tablet No Longer Active 09/03/2014 [facility] Ondansetron 4 mg, 2 mL, Route: IVP, Drug form: INJ, Q8H, Dosing Weight 94.091, kg, PRN Nausea & Vomiting, Start date: 09/03/14 14:38:00, Duration: 30 day, Stop date: 10/03/14 14:37:00Notes: (Same as: Zofran) No Longer Active 09/03/2014 [facility] Morphine 2 mg, 0.5 mL, Route: IVP, Drug form: INJ, Q2H, Dosing Weight 94.091, kg, PRN Breakthrough Pain, Start date: 09/03/14 14:38:00, Duration: 30 day, Stop date: 10/03/14 14:37:00Notes: (Same as:MORPhine Sulfate) No Longer Active 09/03/2014 [facility] Acetaminophen 325 MG / Hydrocodone Bitartrate 10 MG Oral Tablet [[place] 10/325] 2 tab, Route: PO, Drug Form: TAB, Dosing Weight 94.091, kg, Q4H, PRN Pain Score 6-10, Start date: 09/03/14 14:38:00, Duration: 30 day, Stop date: 10/03/14 14:37:00Notes: Do not exceed 4gm/day of acetaminophen. (Same as: [place] 325/10) No Longer Active 09/03/2014 [facility] NS 1,000 mL 1,000 mL, Rate: 100 ml/hr, Infuse over: 10 hr, Route: IV, Dosing Weight 94.091 kg, Total Volume: 1,000, Start date: 09/03/14 14:38:00, Duration: 30 day, Stop date: 10/03/14 14:37:00 No Longer Active 09/03/2014 [facility] Ancef 1 gm, Route: IVPB, ONCE, Dosing Weight 94.091, kg, Start date: 09/03/14 8:25:00, Duration: 1 doses or times, Stop date: 09/03/14 8:25:00 Inactive 09/03/2014 [facility] prasugrel 10 mg, Route: PO, Drug form: TAB, Daily, Dosing Weight 95.455, kg, Start date: 07/10/14 9:00:00, Duration: 30 day, Stop date: 08/08/14 9:00:00 No Longer Active 07/10/2014 [facility] Januvia 100 mg, 1 tab, Route: PO, Drug form: TAB, Daily, Dosing Weight 95.455, kg, Start date: 07/10/14 9:00:00, Duration: 30 day, Stop date: 08/08/14 9:00:00Notes: (Same as: Januvia) Inactive 07/10/2014 [facility] Bystolic 10 mg, 2 tab, Route: PO, Drug form: TAB, Daily, Dosing Weight 95.455, kg, Start date: 07/10/14 9:00:00, Duration: 30 day, Stop date: 08/08/14 9:00:00Notes: (same as: Bystolic) Inactive 07/10/2014 [facility] Losartan 100 mg, 2 tab, Route: PO, Drug form: TAB, Daily, Dosing Weight 95.455, kg, Start date: 07/10/14 9:00:00, Duration: 30 day, Stop date: 08/08/14 9:00:00Notes: (Same as: Cozaar) Inactive 07/10/2014 [facility] glimepiride 4 mg, 1 tab, Route: PO, Drug form: TAB, Daily, Dosing Weight 95.455, kg, Start date: 07/10/14 9:00:00, Duration: 30 day, Stop date: 08/08/14 9:00:00Notes: (Same as: Amaryl) Inactive 07/10/2014 [facility] clopidogrel 75 mg, 1 tab, Route: PO, Drug form: TAB, Daily, Dosing Weight 95.455, kg, Start date: 07/10/14 9:00:00, Duration: 30 day, Stop date: 08/08/14 9:00:00Notes: (Same As: Plavix) Inactive 07/10/2014 [facility] atorvastatin 40 mg, 1 tab, Route: PO, Drug form: TAB, Daily, Dosing Weight 95.455, kg, Start date: 07/10/14 9:00:00, Duration: 30 day, Stop date: 08/08/14 9:00:00Notes: (Same as: Lipitor) Inactive 07/10/2014 [facility] Aspirin 81 MG Enteric Coated Tablet 81 mg, 1 tab, Route: PO, Drug form: ECTAB, Daily, Dosing Weight 95.455, kg, Start date: 07/10/14 9:00:00, Duration: 30 day, Stop date: 08/08/14 9:00:00Notes: Do not crush or chew. (Same As: Ecotrin) Inactive 07/10/2014 [facility] Amlodipine 10 mg, 1 tab, Route: PO, Drug form: TAB, Daily, Dosing Weight 95.455, kg, Start date: 07/10/14 9:00:00, Duration: 30 day, Stop date: 08/08/14 9:00:00Notes: (Same as: Norvasc) Inactive 07/10/2014 [facility] Saline Flush 0.9% 5 ml, Route: IVP, Drug Form: INJ, Dosing Weight 95.455, kg, Q12H, Start date: 07/09/14 21:00:00, Duration: 30 day, Stop date: 08/08/14 9:00:00Notes: (Same as: BD Posiflush) No Longer Active 07/10/2014 [facility] [place]-3 Acid Ethyl Esters (SKILLED NURSING) 1000 MG Oral Capsule [Lovaza] 2,000 mg, 2 cap, Route: PO, Drug Form: CAP, Dosing Weight 95.455, kg, BID, Start date: 07/09/14 17:00:00, Duration: 30 day, Stop date: 08/08/14 9:00:00Notes: (Same as: MaxEPA, [place] 3 fish oil ) Non-Formulary Drug No Longer Active 07/09/2014 [facility] Saline Flush 0.9% 5 ml, Route: IVP, Drug Form: INJ, Dosing Weight 95.455, kg, PRN, PRN Line Flush, Start date: 07/09/14 15:27:00, Duration: 30 day, Stop date: 08/08/14 15:26:00Notes: (Same as: BD Posiflush) No Longer Active 07/09/2014 [facility] Saline Flush 0.9% 5 ml, Route: IVP, Drug Form: INJ, Dosing Weight 95.455, kg, PRN, PRN Line Flush, Start date: 07/09/14 14:08:00, Duration: 30 day, Stop date: 08/08/14 14:07:00Notes: (Same as: BD Posiflush) No Longer Active 07/09/2014 [facility] Valium 5 mg, 1 tab, Route: PO, Drug form: TAB, ONCALL, Start date: 07/09/14 10:00:00, Duration: 1 doses or timesNotes: (Same as: Valium) Inactive 07/09/2014 [facility] lidocaine-prilocaine topical 1 appl, Route: TOP, ONCE, Drug form: CRM, Start date: 07/09/14 9:40:00, Stop date: 07/09/14 9:40:00Notes: Apply to desired area 2 hrs prior to needle insertion. (Same as: Emla) Inactive 07/09/2014 [facility] Sodium Chloride 0.45% IV 1,000 mL 1,000 mL, Rate: 75 ml/hr, Infuse over: 13.3 hr, Route: IV, Dosing Weight 95.455 kg, Total Volume: 1,000, Start date: 07/09/14 9:39:00, Duration: 30 day, Stop date: 08/08/14 9:38:00 No Longer Active 07/09/2014 [facility] Januvia 100 mg, 1 tab, Route: PO, Drug form: TAB, Daily, Dosing Weight 95.455, kg, Start date: 05/30/13 9:00:00, Duration: 30 day, Stop date: 06/28/13 9:00:00 PO No Longer Active [facility] 05/30/2013 [facility] glimepiride 4 mg, 1 tab, Route: PO, Drug form: TAB, Daily, Dosing Weight 95.455, kg, Start date: 05/30/13 9:00:00, Duration: 30 day, Stop date: 06/28/13 9:00:00 PO No Longer Active [facility] 05/30/2013 [facility] Bystolic 10 mg, 2 tab, Route: PO, Drug form: TAB, Daily, Dosing Weight 95.455, kg, Start date: 05/30/13 9:00:00, Duration: 30 day, Stop date: 06/28/13 9:00:00 PO No Longer Active [facility] 05/30/2013 [facility] losartan 100 mg, 2 tab, Route: PO, Drug form: TAB, Daily, Dosing Weight 95.455, kg, Start date: 05/30/13 9:00:00, Duration: 30 day, Stop date: 06/28/13 9:00:00 PO [facility] atorvastatin 40 mg, 1 tab, Route: PO, Drug form: TAB, Daily, Dosing Weight 95.455, kg, Start date: 05/30/13 9:00:00, Duration: 30 day, Stop date: 06/28/13 9:00:00 PO No Longer Active [facility] 05/30/2013 [facility] clopidogrel 75 mg, 1 tab, Route: PO, Drug form: TAB, Daily, Dosing Weight 95.455, kg, Start date: 05/30/13 9:00:00, Duration: 30 day, Stop date: 06/28/13 9:00:00 PO No Longer Active [facility] 05/30/2013 [facility] aspirin 81 mg tablet, enteric coated 81 mg, 1 tab, Route: PO, Drug form: ECTAB, Daily, Dosing Weight 95.455, kg, Start date: 05/30/13 9:00:00, Duration: 30 day, Stop date: 06/28/13 9:00:00 PO No Longer Active [facility] 05/30/2013 [facility] amLODipine 10 mg, 1 tab, Route: PO, Drug form: TAB, Daily, Dosing Weight 95.455, kg, Start date: 05/30/13 9:00:00, Duration: 30 day, Stop date: 06/28/13 9:00:00 PO No Longer Active [facility] 05/30/2013 [facility] Saline Flush 0.9% 5 ml, Route: IVP, Drug Form: INJ, Dosing Weight 95.455, kg, Q12H, Start date: 05/29/13 21:00:00, Duration: 30 day, Stop date: 06/28/13 9:00:00 IVP No Longer Active [facility] 05/30/2013 [facility] MaxEPA 2,000 mg, 2 cap, Route: PO, Drug Form: CAP, Dosing Weight 95.455, kg, BID, Start date: 05/29/13 17:00:00, Duration: 30 day, Stop date: 06/28/13 9:00:00 PO No Longer Active [facility] 05/29/2013 [facility] Insulin regular 4 unit, 0.04 mL, Route: SUB-Q, Drug form: SOLN, TID-Before Meals, Dosing Weight 95.455, kg, PRN Blood Glucose Results, Start date: 05/29/13 10:17:00, Duration: 30 day, Stop date: 06/28/13 10:16:00 SUB-Q No Longer Active [facility] 05/29/2013 [facility] Dextrose 50% Syringe 25 gm, 50 mL, Route: IVP, Drug Form: INJ, Dosing Weight 95.455, kg, PRN, PRN Blood Glucose Results, Start date: 05/29/13 10:17:00, Duration: 30 day, Stop date: 06/28/13 10:16:00 IVP No Longer Active [facility] 05/29/2013 [facility] glucagon 1 mg, Route: IM, Drug form: PDR/INJ, PRN, Dosing Weight 95.455, kg, PRN Blood Glucose Results, Start date: 05/29/13 10:17:00, Duration: 30 day, Stop date: 06/28/13 10:16:00 IM No Longer Active [facility] 05/29/2013 [facility] Saline Flush 0.9% 5 ml, Route: IVP, Drug Form: INJ, Dosing Weight 95.455, kg, PRN, PRN Line Flush, Start date: 05/29/13 10:01:00, Duration: 30 day, Stop date: 06/28/13 10:00:00 IVP No Longer Active [facility] 05/29/2013 [facility] nitroglycerin SL Tab 0.4 mg, 1 tab, Route: SL, Drug form: TAB, Q5Min, Dosing Weight 95.455, kg, PRN Chest Pain, Start date: 05/29/13 10:01:00, Duration: 3 doses or times, Stop date: 05/29/13 15:00:00 SL No Longer Active [facility] 05/29/2013 [facility] Valium 5 mg, Route: IVP, Drug form: INJ, ONCALL, Dosing Weight 95.455, kg, Start date: 05/29/13 7:00:00 IVP No Longer Active [facility] 05/29/2013 [facility] aspirin 81 mg tablet, enteric coated 81 mg, 1 tab, PO, Daily, 0 tab, Substitution Allowed, ECTAB PO Active [facility] 05/29/2013 [facility] clopidogrel 75 mg, Route: PO, Drug form: TAB, Daily, Dosing Weight 95.455, kg, Start date: 05/16/13 9:00:00, Duration: 30 day, Stop date: 06/14/13 9:00:00 PO No Longer Active [facility] 05/16/2013 [facility] Januvia 100 mg, 1 tab, Route: PO, Drug form: TAB, Daily, Dosing Weight 95.455, kg, Start date: 05/16/13 9:00:00, Duration: 30 day, Stop date: 06/14/13 9:00:00 [facility] Bystolic 10 mg, 2 tab, Route: PO, Drug form: TAB, Daily, Dosing Weight 95.455, kg, Start date: 05/16/13 9:00:00, Duration: 30 day, Stop date: 06/14/13 9:00:00 PO No Longer Active [facility] 05/16[facility]2013 [facility] losartan 100 mg, 4 tab, Route: PO, Drug form: TAB, Daily, Dosing Weight 95.455, kg, Start date: 05/16/13 9:00:00, Duration: 30 day, Stop date: 06/14/13 9:00:00 PO No Longer Active [facility] 05/16/2013 [facility] glimepiride 4 mg, 1 tab, Route: PO, Drug form: TAB, Daily, Dosing Weight 95.455, kg, Start date: 05/16/13 9:00:00, Duration: 30 day, Stop date: 06/14/13 9:00:00 PO No Longer Active [facility] 05/16/2013 [facility] atorvastatin 40 mg, 1 tab, Route: PO, Drug form: TAB, Daily, Dosing Weight 95.455, kg, Start date: 05/16/13 9:00:00, Duration: 30 day, Stop date: 06/14/13 9:00:00 PO No Longer Active [facility] 05/16/2013 [facility] amLODipine 10 mg, 1 tab, Route: PO, Drug form: TAB, Daily, Dosing Weight 95.455, kg, Start date: 05/16/13 9:00:00, Duration: 30 day, Stop date: 06/14/13 9:00:00 PO No Longer Active [facility] 05/16/2013 [facility] Saline Flush 0.9% 5 ml, Route: IVP, Drug Form: INJ, Dosing Weight 95.455, kg, Q12H, Start date: 05/15/13 21:00:00, Duration: 30 day, Stop date: 06/14/13 9:00:00 IVP No Longer Active [facility] 05/16/2013 [facility] docusate sodium 100 mg oral capsule 100 mg, 1 cap, Route: PO, Drug form: CAP, Q12H, Dosing Weight 95.455, kg, Start date: 05/15/13 21:00:00, Duration: 30 day, Stop date: 06/14/13 9:00:00 PO No Longer Active [facility] 05/16/2013 [facility] famotidine 20 mg, 1 tab, Route: PO, Drug form: TAB, Q12H, Dosing Weight 95.455, kg, Start date: 05/15/13 21:00:00, Duration: 30 day, Stop date: 06/14/13 9:00:00 [facility] acetylcysteine oral solution (mg) 600 mg, 3 mL, Route: PO, Drug form: SOLN, Q12H, Dosing Weight 95.455, kg, Start date: 05/15/13 21:00:00, Duration: 4 doses or times, Stop date: 05/17/13 9:00:00 PO Active [facility] 05/16/2013 [facility] Lovaza oral capsule 2,000 mg, 2 cap, Route: PO, Drug Form: CAP, Dosing Weight 95.455, kg, BID, Start date: 05/15/13 17:00:00, Duration: 30 day, Stop date: 06/14/13 9:00:00 PO No Longer Active [facility] 05/15/2013 [facility] Saline Flush 0.9% 5 ml, Route: IVP, Drug Form: INJ, Dosing Weight 95.455, kg, PRN, PRN Line Flush, Start date: 05/15/13 12:12:00, Duration: 30 day, Stop date: 06/14/13 12:11:00 IVP No Longer Active [facility] 05/15/2013 [facility] bisacodyl 10 mg, 1 supp, Route: MN, Drug form: SUPP, Q24H, Dosing Weight 95.455, kg, PRN Constipation, Start date: 05/15/13 12:12:00, Duration: 30 day, Stop date: 06/14/13 12:11:00 MN No Longer Active [facility] 05/15/2013 [facility] Nubain 2 mg, Route: IVP, Q3H, Dosing Weight 95.455, kg, PRN Pain Score 1-3, Start date: 05/15/13 12:12:00, Duration: 30 day, Stop date: 06/14/13 12:11:00 IVP No Longer Active [facility] 05/15/2013 [facility] ondansetron 4 mg, 1 tab, Route: PO, Drug form: TAB, Q8H, Dosing Weight 95.455, kg, PRN Nausea & Vomiting, Start date: 05/15/13 12:12:00, Duration: 30 day, Stop date: 06/14/13 12:11:00 PO No Longer Active [facility] 05/15/2013 [facility] diphenhydrAMINE 25 mg, 1 cap, Route: PO, Drug form: CAP, Bedtime, Dosing Weight 95.455, kg, PRN Insomnia, Start date: 05/15/13 12:12:00, Duration: 30 day, Stop date: 06/14/13 12:11:00 PO No Longer Active [facility] [facility] nitroglycerin SL Tab 0.4 mg, 1 tab, Route: SL, Drug form: TAB, Q5Min, Dosing Weight 95.455, kg, PRN Chest Pain, Start date: 05/15/13 12:12:00, Duration: 3 doses or times, Stop date: 05/15/13 17:00:00 SL No Longer Active [facility] 05/15/2013 [facility] morphine Sulfate 2 mg, 1 mL, Route: IVP, Drug form: INJ, Q15Min, Dosing Weight 95.455, kg, PRN Chest Pain, Start date: 05/15/13 12:12:00, Duration: 2 doses or times, Stop date: 05/15/13 15:00:00 IVP No Longer Active [facility] 05/15/2013 [facility] acetaminophen-hydrocodone 325 mg-5 mg oral tablet 1 tab, Route: PO, Drug Form: TAB, Dosing Weight 95.455, kg, Q4H, PRN Pain Score 1-5, Start date: 05/15/13 12:12:00, Duration: 30 day, Stop date: 06/14/13 12:11:00 PO No Longer Active [facility] 05/15/2013 [facility] aspirin 325 mg tablet 325 mg, 1 tab, Route: PO, Drug form: TAB, ONCE, Dosing Weight 95.455, kg, Start date: 05/15/13 12:12:00, Stop date: 05/15/13 12:12:00 PO No Longer Active [facility] 05/15/2013 [facility] Sodium Chloride 0.9% IV 1,000 mL 1,000 mL, Rate: 75 ml/hr, Infuse over: 13.3 hr, Route: IV, Dosing Weight 95.455 kg, Total Volume: 1,000, Start date: 05/15/13 12:12:00, Duration: 30 day, Stop date: 06/14/13 12:11:00 IV No Longer Active [facility] 05/15/2013 [facility] metFORmin 500 mg oral tablet 500 mg, 1 tab, PO, BID, 30 tab, Substitution Allowed PO No Longer Active 05/15/2013 [facility] amLODipine 10 mg oral tablet 10 mg, 1 tab, PO, Daily, 30 tab, Substitution Allowed, TAB PO Active [facility] 05/15/2013 [facility] Bystolic 10 mg oral tablet 10 mg, 1 tab, PO, Daily, 30 tab, Substitution Allowed, TAB PO Active [facility] 05/15/2013 [facility] atorvastatin 40 mg oral tablet 40 mg, 1 tab, PO, Daily, 30 tab, Substitution Allowed, TAB PO Active [facility] 05/15/2013 [facility] glimepiride 4 mg oral tablet 4 mg, 1 tab, PO, Daily, 30 tab, Substitution Allowed, TAB PO Active [facility] 05/15/2013 [facility] clopidogrel 75 mg oral tablet 75 mg, 1 tab, PO, Daily, 30 tab, Substitution Allowed, TAB PO Active [facility] 05/15/2013 [facility] losartan 100 mg oral tablet 100 mg, 1 tab, PO, Daily, 30 tab, Substitution Allowed, TAB PO Active [facility] 05/15/2013 [facility] Januvia 100 mg oral tablet 100 mg, 1 tab, PO, Daily, 30 tab, Substitution Allowed, TAB PO Active [facility] 05/15/2013 [facility] Lovaza oral capsule 2,000 mg, 2 cap, PO, BID, 120 cap, Substitution Allowed, Maintenance, CAP PO Active [facility] 05/15/2013 [facility] Allergies, Adverse Reactions, Alerts Substance Category Reaction Severity Reaction type Status Date Reported Comments Source Immunizations Immunization Date Given Site Status Last Updated Comments Source pneumococcal 23-valent vaccine 04/21/2016 Not Given [facility] Results Order Name Results Value Reference Range Date Interpretation Comments Source CHEM PANEL A/G Ratio 1.2 0.7 - 1.6 01/09/2019 [facility] CHEM PANEL Globulin 3.7 g/dL 2.7 - 4.2 01/09/2019 [facility] CHEM PANEL B/C Ratio 15 6 - 25 01/09/2019 [facility] CHEM PANEL AGAP 14.5 meq/L 10.0 - 20.0 01/09/2019 [facility] CHEM PANEL AST 23 unit/L 0 - 37 01/09/2019 [facility] CHEM PANEL ALT 24 unit/L 0 - 65 01/09/2019 [facility] CHEM PANEL Albumin Lvl 4.4 g/dL 3.5 - 5.0 01/09/2019 [facility] CHEM PANEL Alk Phos 70 unit/L 39 - 136 01/09/2019 [facility] CHEM PANEL Bili Total 0.4 mg/dL 0.2 - 1.3 01/09/2019 [facility] CHEM PANEL Total Protein 8.1 g/dL 6.4 - 8.4 01/09/2019 [facility] CHEM PANEL Sodium Lvl 142 meq/L 135 - 145 01/09/2019 [facility] CHEM PANEL CO2 26 meq/L 24 - 32 01/09/2019 [facility] CHEM PANEL Chloride Lvl 106 meq/L 95 - 109 01/09/2019 [facility] CHEM PANEL Calcium Lvl 10.2 mg/dL 8.5 - 10.5 01/09/2019 [facility] CHEM PANEL Potassium Lvl 4.5 meq/L 3.5 - 5.1 01/09/2019 [facility] CHEM PANEL Glucose Lvl 106 mg/dL 70 - 99 01/09/2019 [facility] CHEM PANEL Creatinine Lvl 1.07 mg/dL 0.50 - 1.40 01/09/2019 [facility] CHEM PANEL BUN 16 mg/dL 7 - 22 01/09/2019 [facility] CHEM PANEL eGFR 68 mL/min/1.73m2 01/09/2019 Result Comment: The eGFR is calculated using the [...] from the National Kidney Disease Education Program (NKDEP) which additionally recommends that when the eGFR is used in patients with extremes of body mass index for purposes of drug dosing, the eGFR should be multiplied by the estimated BMI. [facility] HEMATOLOGY INR 1.00 0.85 - 1.17 01/09/2019 [facility] HEMATOLOGY PT 13.0 s 12.0 - 14.7 01/09/2019 [facility] HEMATOLOGY MPV 8.9 fL 7.4 - 10.4 01/09/2019 [facility] HEMATOLOGY MCHC 33.9 g/dL 32.0 - 36.0 01/09/2019 [facility] HEMATOLOGY RDW 13.8 % 11.5 - 14.5 01/09/2019 [facility] HEMATOLOGY Platelet 222 K/CMM 133 - 450 01/09/2019 [facility] HEMATOLOGY MCV 87.8 fL 80.0 - 94.0 01/09/2019 [facility] HEMATOLOGY MCH 29.7 pg 27.0 - 31.0 01/09/2019 [facility] HEMATOLOGY RBC 4.46 M/CMM 4.70 - 6.10 01/09/2019 [facility] HEMATOLOGY Hgb 13.3 g/dL 14.0 - 18.0 01/09/2019 [facility] HEMATOLOGY Hct 39.1 % 42.0 - 54.0 01/09/2019 [facility] HEMATOLOGY WBC 9.3 K/CMM 3.7 - 10.4 01/09/2019 [facility] HEMATOLOGY PTT 32.2 s 22.9 - 35.8 01/09/2019 [facility] HEMATOLOGY Lymphocytes 27.9 % 20.0 - 40.0 01/09/2019 [facility] HEMATOLOGY Monocytes 6.9 % 2.0 - 12.0 01/09/2019 [facility] HEMATOLOGY Segs 62.1 % 45.0 - 75.0 01/09/2019 [facility] HEMATOLOGY Eosinophils # 0.2 K/CMM 0.0 - 0.5 01/09/2019 [facility] HEMATOLOGY Basophils # 0.1 K/CMM 0.0 - 0.2 01/09/2019 [facility] HEMATOLOGY Eosinophils 2.4 % 0.0 - 4.0 01/09/2019 [facility] HEMATOLOGY Basophils 0.7 % 0.0 - 1.0 01/09/2019 [facility] HEMATOLOGY Neutrophils # 5.8 K/CMM 1.5 - 8.1 01/09/2019 [facility] HEMATOLOGY Lymphocytes # 2.6 K/CMM 1.0 - 5.5 01/09/2019 [facility] HEMATOLOGY Monocytes # 0.6 K/CMM 0.0 - 0.8 01/09/2019 [facility] SPECIAL CHEMISTRY Hgb A1C 6.9 % <=5.6 % 01/09/2019 [facility] CHEM PANEL BUN 12 mg/dL 7 - 22 07/26/2017 [facility] CHEM PANEL Glucose Lvl 116 mg/dL 70 - 99 07/26/2017 [facility] CHEM PANEL eGFR 87 mL/min/1.73m2 07/26/2017 Result Comment: The eGFR is calculated using the [...] from the National Kidney Disease Education Program (NKDEP) which additionally recommends that when the eGFR is used in patients with extremes of body mass index for purposes of drug dosing, the eGFR should be multiplied by the estimated BMI. [facility] CHEM PANEL AGAP 13.5 meq/L 10.0 - 20.0 07/26/2017 [facility] CHEM PANEL Calcium Lvl 7.4 mg/dL 8.5 - 10.5 07/26/2017 [facility] CHEM PANEL Creatinine Lvl 0.84 mg/dL 0.50 - 1.40 07/26/2017 [facility] CHEM PANEL Potassium Lvl 3.5 meq/L 3.5 - 5.1 07/26/2017 [facility] CHEM PANEL Chloride Lvl 111 meq/L 95 - 109 07/26/2017 [facility] CHEM PANEL Sodium Lvl 140 meq/L 135 - 145 07/26/2017 [facility] CHEM PANEL CO2 19 meq/L 24 - 32 07/26/2017 [facility] HEMATOLOGY Lymphocytes 14.0 % 20.0 - 40.0 07/26/2017 [facility] HEMATOLOGY Eosinophils 1.1 % 0.0 - 4.0 07/26/2017 [facility] HEMATOLOGY Monocytes 8.1 % 2.0 - 12.0 07/26/2017 [facility] HEMATOLOGY Segs 76.6 % 45.0 - 75.0 07/26/2017 [facility] HEMATOLOGY Eosinophils # 0.1 K/CMM 0.0 - 0.5 07/26/2017 [facility] HEMATOLOGY Monocytes # 1.0 K/CMM 0.0 - 0.8 07/26/2017 [facility] HEMATOLOGY Lymphocytes # 1.8 K/CMM 1.0 - 5.5 07/26/2017 [facility] HEMATOLOGY Segs-Bands # 9.9 K/CMM 1.5 - 8.1 07/26/2017 [facility] HEMATOLOGY Basophils 0.2 % 0.0 - 1.0 07/26/2017 [facility] HEMATOLOGY MPV 9.6 fL 7.4 - 10.4 07/26/2017 [facility] HEMATOLOGY Platelet 206 K/CMM 133 - 450 07/26/2017 [facility] HEMATOLOGY RDW 14.9 % 11.5 - 14.5 07/26/2017 [facility] HEMATOLOGY MCH 30.8 pg 27.0 - 31.0 07/26/2017 [facility] HEMATOLOGY MCV 89.2 fL 80.0 - 94.0 07/26/2017 [facility] HEMATOLOGY Hct 27.3 % 42.0 - 54.0 07/26/2017 [facility] HEMATOLOGY WBC 12.9 K/CMM 3.7 - 10.4 07/26/2017 [facility] HEMATOLOGY MCHC 34.6 g/dL 32.0 - 36.0 07/26/2017 [facility] HEMATOLOGY Hgb 9.4 g/dL 14.0 - 18.0 07/26/2017 [facility] HEMATOLOGY RBC 3.06 M/CMM 4.70 - 6.10 07/26/2017 [facility] Chest 1view DX Chest 1view DX EXAM: XR CHEST 1 VIEW DATE: 07/26/2017 3:00 AM CDT INDICATION: - follow up bilateral pleural effusions COMPARISON: Chest radiograph 1 day(s) prior. TECHNIQUE: AP chest FINDINGS: Lines and tubes: Unchanged. Lungs and pleura: No new pulmonary or pleural based abnormality is identified. There is mild platelike atelectasis in both lung bases. Mild hazy left retrocardiac opacity, superimposed consolidation not excluded. Blunting of the costophrenic sulci, suggesting trace pleural effusions without significant interval change. Heart and mediastinum: Unchanged mediastinal contours. IMPRESSION: 1. No significant interval changes relative to the comparison exam. 07/26/2017 - - Read by: Bruce Stevenson MD Dictated Date/time: 07/26/17 11:11 Electronically Signed by: Bruce Stevenson MD 07/26/17 11:12 FINAL REPORT [facility] BLOOD BANK RESULTS Antibody Scrn Negative (07/25/17 2:56 AM) 07/25/2017 [facility] BLOOD BANK RESULTS ABO/Rh A POS 07/25/2017 [facility] CHEM PANEL Magnesium Lvl 1.9 mg/dL 1.8 - 2.4 07/25/2017 [facility] CHEM PANEL Phosphorus 3.7 mg/dL 2.5 - 4.5 07/25/2017 [facility] ELECTROLYTES AGAP 13.3 meq/L 10.0 - 20.0 07/25/2017 [facility] ELECTROLYTES Calcium Lvl 7.8 mg/dL 8.5 - 10.5 07/25/2017 [facility] ELECTROLYTES eGFR 86 mL/min/1.73m2 07/25/2017 Result Comment: The eGFR is calculated using the [...] from the National Kidney Disease Education Program (NKDEP) which additionally recommends that when the eGFR is used in patients with extremes of body mass index for purposes of drug dosing, the eGFR should be multiplied by the estimated BMI. [facility] ELECTROLYTES BUN 11 mg/dL 7 - 22 07/25/2017 [facility] ELECTROLYTES Glucose Lvl 84 mg/dL 70 - 99 07/25/2017 [facility] ELECTROLYTES Sodium Lvl 140 meq/L 135 - 145 07/25/2017 [facility] ELECTROLYTES Creatinine Lvl 0.88 mg/dL 0.50 - 1.40 07/25/2017 [facility] ELECTROLYTES CO2 21 meq/L 24 - 32 07/25/2017 [facility] ELECTROLYTES Chloride Lvl 110 meq/L 95 - 109 07/25/2017 [facility] ELECTROLYTES Potassium Lvl 4.3 meq/L 3.5 - 5.1 07/25/2017 [facility] HEMATOLOGY PTT 34.7 s 22.9 - 35.8 07/25/2017 [facility] HEMATOLOGY PT 15.1 s 12.0 - 14.7 07/25/2017 [facility] HEMATOLOGY INR 1.17 0.85 - 1.17 07/25/2017 [facility] HEMATOLOGY MPV 9.1 fL 7.4 - 10.4 07/25/2017 [facility] HEMATOLOGY RBC 2.99 M/CMM 4.70 - 6.10 07/25/2017 [facility] HEMATOLOGY Hgb 9.0 g/dL 14.0 - 18.0 07/25/2017 [facility] HEMATOLOGY Hct 26.6 % 42.0 - 54.0 07/25/2017 [facility] HEMATOLOGY MCV 88.9 fL 80.0 - 94.0 07/25/2017 [facility] HEMATOLOGY MCH 30.1 pg 27.0 - 31.0 07/25/2017 [facility] HEMATOLOGY Platelet 191 K/CMM 133 - 450 07/25/2017 [facility] HEMATOLOGY RDW 14.7 % 11.5 - 14.5 07/25/2017 [facility] HEMATOLOGY MCHC 33.9 g/dL 32.0 - 36.0 07/25/2017 [facility] HEMATOLOGY WBC 15.2 K/CMM 3.7 - 10.4 07/25/2017 [facility] HEMATOLOGY Anisocyte 1+ *ABN* (07/25/17 2:56 AM) None Seen 07/25/2017 [facility] HEMATOLOGY Polychrom slight 07/25/2017 [facility] HEMATOLOGY Segs-Bands # 12.1 K/CMM 1.5 - 8.1 07/25/2017 [facility] HEMATOLOGY Lymphocytes # 1.9 K/CMM 1.0 - 5.5 07/25/2017 [facility] HEMATOLOGY Basophils 0.2 % 0.0 - 1.0 07/25/2017 [facility] HEMATOLOGY Monocytes # 1.1 K/CMM 0.0 - 0.8 07/25/2017 [facility] HEMATOLOGY Eosinophils # 0.1 K/CMM 0.0 - 0.5 07/25/2017 [facility] HEMATOLOGY Monocytes 7.0 % 2.0 - 12.0 07/25/2017 [facility] HEMATOLOGY Eosinophils 0.5 % 0.0 - 4.0 07/25/2017 [facility] HEMATOLOGY Segs 79.6 % 45.0 - 75.0 07/25/2017 [facility] HEMATOLOGY Lymphocytes 12.7 % 20.0 - 40.0 07/25/2017 [facility] PARATHYROID PROFILE Ca Norm WB 1.12 mMol/L 1.05 - 1.25 07/25/2017 [facility] PARATHYROID PROFILE Ca Ion WB 1.14 mMol/L 1.05 - 1.25 07/25/2017 [facility] Chest 1view DX Chest 1view DX EXAM: XR CHEST 1 VIEW DATE: 07/25/2017 INDICATION: dyspnea - post op . Comparison is made with yesterday FINDINGS: The tiny left apical pneumothorax noted yesterday is no longer visualized however this a semierect radiograph is suboptimal for that determination. Cardiomediastinal silhouette and sternotomy wires are unchanged. Small bilateral pleural effusions are unchanged. There is platelike atelectasis at both lung bases. There is mild platelike atelectasis in the left upper lobe. The remainder the lungs are clear. IMPRESSION: The tiny left apical pneumothorax noted yesterday is no longer visualized however this a semierect radiograph is suboptimal for that determination. 07/25/2017 - - Read by: Juli Snyder MD Dictated Date/time: 07/25/17 08:52 Electronically Signed by: Juli Snyder MD 07/25/17 08:53 FINAL REPORT [facility] Chest 1view DX Chest 1view DX EXAM: XR CHEST 1 VIEW DATE: 07/25/2017 4:31 AM CDT INDICATION: - dyspnea/post op COMPARISON: Semierect AP chest radiograph performed 07/24/2017 at 1:36 PM. TECHNIQUE: AP chest, semierect. FINDINGS: Lines, tubes and hardware: Sternotomy wires are unchanged. Lungs and pleura: The tiny left apical pneumothorax is no longer apparent on this examination. Mild airspace opacities in the bilateral retrocardiac lungs, which may represent subsegmental atelectasis with or without an associated infection are unchanged. However there is improved aeration of the left lung lingula. Heart and mediastinum: The heart is prominent however this may be exacerbated by patient positioning and technique. Aortic atherosclerosis is similar. Bones: No changes from the prior exam IMPRESSION: 1. Left apical pneumothorax is slightly less conspicuous, stable. 2. Improved aeration of the left lung lingula which may represent resolving atelectasis and/or resolving infection. 3. Stable small bilateral pleural effusions. 07/25/2017 - - This report was dictated by a Turbine Operator/Fellow. I have personally reviewed the images as well as the Resident's interpretation and agree with the findings. Read by: Vance (FELLOW)Kristopher MD Resident: Vance (FELLOW)Kristopher MD Dictated Date/time: 07/25/17 10:18 Electronically Signed by: Bruce Stevenson MD 07/25/17 10:58 FINAL REPORT [facility] MOLECULAR DIAGNOSTIC C difficile DNA Negative (07/24/17 9:19 PM) Negative 07/25/2017 [facility] URINE AND STOOL UA Sq Epi RARE 07/24/2017 [facility] URINE AND STOOL Micro? Performed *NA* (07/24/17 12:52 PM) 07/24/2017 [facility] URINE AND STOOL UA WBC 1 /HPF 0 - 5 07/24/2017 [facility] URINE AND STOOL UA Mucus Few /LPF None Seen /LPF 07/24/2017 [facility] URINE AND STOOL UA Leuk Est Negative (07/24/17 12:52 PM) Negative 07/24/2017 [facility] URINE AND STOOL UA Urobilinogen 4.0 mg/dL 0.1 - 1.0 07/24/2017 [facility] URINE AND STOOL UA Nitrite Negative (07/24/17 12:52 PM) Negative 07/24/2017 [facility] URINE AND STOOL UA Blood Negative (07/24/17 12:52 PM) Negative 07/24/2017 [facility] URINE AND STOOL UA Bili Negative *NA* (07/24/17 12:52 PM) Negative 07/24/2017 [facility] URINE AND STOOL UA Glucose Negative mg/dL Negative mg/dL 07/24/2017 [facility] URINE AND STOOL UA Ketones Negative mg/dL Negative mg/dL 07/24/2017 [facility] URINE AND STOOL UA Protein 20 mg/dL Negative mg/dL 07/24/2017 [facility] URINE AND STOOL UA pH 6.5 5.0 - 8.0 07/24/2017 [facility] URINE AND STOOL UA Spec Grav 1.013 <=1.030 07/24/2017 [facility] URINE AND STOOL UA Turbidity Clear (07/24/17 12:52 PM) Clear 07/24/2017 [facility] URINE AND STOOL UA Color Yellow *NA* (07/24/17 12:52 PM) Yellow 07/24/2017 [facility] HEMATOLOGY Sed Rate 45 mm/h 0 - 15 07/24/2017 [facility] IMMUNOLOGY C-REACTIVE PROTEIN 23.6 mg/L <=2.9 mg/L 07/24/2017 [facility] Chest 1view DX Chest 1view DX EXAM: XR CHEST 1 VIEW DATE: 07/24/2017 12:26 PM CDT INDICATION: s/p fall. eval sternum - s/p fall. eval sternum COMPARISON: 07/24/2017 at 4:24 AM TECHNIQUE: AP chest IMPRESSION: 1. Cardiomediastinal silhouette is enlarged, unchanged. Aortic atherosclerotic disease. 2. Prominent lung reticulations again seen with peribronchial cuffing suggestive of pulmonary edema. Superimposed infection cannot be excluded. Findings are stable compared to previous study. 3. Tiny left apical pneumothorax again seen. 4. Small bilateral pleural effusions. 5. Osseous structures are stable. 07/24/2017 - - Read by: Rony Bennett MD Dictated Date/time: 07/24/17 14:47 Electronically Signed by: Rony Bennett MD 07/24/17 14:48 FINAL REPORT [facility] Chest US Chest US EXAM: US CHEST DATE: 07/24/2017 10:41 AM CDT INDICATION: - please quantify left side pleural effusion ADDITIONAL INFORMATION: None. COMPARISON: None. TECHNIQUE: Multiplanar grayscale and color Doppler ultrasound of the chest. FINDINGS: Right pleural effusion: Size: 10.4 x 7.9 x 3.3 cm (142 mL) Echogenicity: Anechoic. Left pleural effusion: Size: 2.6 x 5.9 x 2.8 cm (22 mL) Echogenicity: Anechoic. Other: None. IMPRESSION: 1. Small bilateral pleural effusions, right larger than left. 07/24/2017 - - This report was dictated by a Turbine Operator/Fellow. I have personally reviewed the images as well as the Resident's interpretation and agree with the findings. Read by: Frank Moraes MD Resident: Frank Moraes MD Dictated Date/time: 07/24/17 11:52 Electronically Signed by: Barney Cook 07/24/17 12:56 FINAL REPORT [facility] CHEM PANEL Phosphorus 2.1 mg/dL 2.5 - 4.5 07/24/2017 [facility] CHEM PANEL Magnesium Lvl 2.1 mg/dL 1.8 - 2.4 07/24/2017 [facility] CHEM PANEL eGFR 87 mL/min/1.73m2 07/24/2017 Result Comment: The eGFR is calculated using the [...] from the National Kidney Disease Education Program (NKDEP) which additionally recommends that when the eGFR is used in patients with extremes of body mass index for purposes of drug dosing, the eGFR should be multiplied by the estimated BMI. [facility] CHEM PANEL Glucose Lvl 81 mg/dL 70 - 99 07/24/2017 [facility] CHEM PANEL Creatinine Lvl 0.86 mg/dL 0.50 - 1.40 07/24/2017 [facility] CHEM PANEL Potassium Lvl 3.9 meq/L 3.5 - 5.1 07/24/2017 [facility] CHEM PANEL Sodium Lvl 140 meq/L 135 - 145 07/24/2017 [facility] CHEM PANEL BUN 16 mg/dL 7 - 22 07/24/2017 [facility] CHEM PANEL CO2 20 meq/L 24 - 32 07/24/2017 [facility] CHEM PANEL Calcium Lvl 7.6 mg/dL 8.5 - 10.5 07/24/2017 [facility] CHEM PANEL Chloride Lvl 110 meq/L 95 - 109 07/24/2017 [facility] CHEM PANEL AGAP 13.9 meq/L 10.0 - 20.0 07/24/2017 [facility] HEMATOLOGY Segs 77.2 % 45.0 - 75.0 07/24/2017 [facility] HEMATOLOGY Segs-Bands # 14.2 K/CMM 1.5 - 8.1 07/24/2017 [facility] HEMATOLOGY Lymphocytes # 2.7 K/CMM 1.0 - 5.5 07/24/2017 [facility] HEMATOLOGY Basophils 0.1 % 0.0 - 1.0 07/24/2017 [facility] HEMATOLOGY Monocytes 7.5 % 2.0 - 12.0 07/24/2017 [facility] HEMATOLOGY Lymphocytes 14.6 % 20.0 - 40.0 07/24/2017 [facility] HEMATOLOGY Eosinophils # 0.1 K/CMM 0.0 - 0.5 07/24/2017 [facility] HEMATOLOGY Eosinophils 0.6 % 0.0 - 4.0 07/24/2017 [facility] HEMATOLOGY Monocytes # 1.4 K/CMM 0.0 - 0.8 07/24/2017 [facility] HEMATOLOGY Platelet 184 K/CMM 133 - 450 07/24/2017 [facility] HEMATOLOGY RDW 14.7 % 11.5 - 14.5 07/24/2017 [facility] HEMATOLOGY MCHC 34.3 g/dL 32.0 - 36.0 07/24/2017 [facility] HEMATOLOGY MCH 30.1 pg 27.0 - 31.0 07/24/2017 [facility] HEMATOLOGY MPV 9.5 fL 7.4 - 10.4 07/24/2017 [facility] HEMATOLOGY MCV 87.7 fL 80.0 - 94.0 07/24/2017 [facility] HEMATOLOGY Hgb 8.8 g/dL 14.0 - 18.0 07/24/2017 [facility] HEMATOLOGY WBC 18.4 K/CMM 3.7 - 10.4 07/24/2017 [facility] HEMATOLOGY Hct 25.6 % 42.0 - 54.0 07/24/2017 [facility] HEMATOLOGY RBC 2.92 M/CMM 4.70 - 6.10 07/24/2017 [facility] Chest 1view DX Chest 1view DX EXAM: XR CHEST 1 VIEW DATE: 07/24/2017 INDICATION: dyspnea - post op . Comparison is made with yesterday FINDINGS: The left-sided chest tube has been removed. There is a new tiny left apical pneumothorax. The top of the left lung is at the level of the left posterior 3rd rib. Cardiomediastinal silhouette and sternotomy wires are unchanged. The platelike atelectasis in the left upper lobe has improved. The upper lungs are clear. Lung volumes are low. This produces spurious widening of the transverse diameter of the heart and mediastinum and crowding of the basal lung markings. This produces platelike atelectasis at both lung bases. Underlying consolidation is not excluded. IMPRESSION: The left-sided chest tube has been removed. There is a new tiny left apical pneumothorax. The top of the left lung is at the level of the left posterior 3rd rib 07/24/2017 - - Read by: Juli Snyder MD Dictated Date/time: 07/24/17 09:11 Electronically Signed by: Juli Snyder MD 07/24/17 09:13 FINAL REPORT [facility] CHEM PANEL Magnesium Lvl 2.3 mg/dL 1.8 - 2.4 07/23/2017 [facility] CHEM PANEL Phosphorus 2.3 mg/dL 2.5 - 4.5 07/23/2017 [facility] HEMATOLOGY PT 15.8 s 12.0 - 14.7 07/23/2017 [facility] HEMATOLOGY INR 1.23 0.85 - 1.17 07/23/2017 [facility] HEMATOLOGY PTT 33.3 s 22.9 - 35.8 07/23/2017 [facility] PARATHYROID PROFILE Ca Ion WB 1.06 mMol/L 1.05 - 1.25 07/23/2017 [facility] PARATHYROID PROFILE Ca Norm WB 1.07 mMol/L 1.05 - 1.25 07/23/2017 [facility] Chest 1view DX Chest 1view DX EXAM: XR CHEST 1 VIEW DATE: 07/23/2017 INDICATION: Abnormal chest sounds - post-op . Comparison is made with yesterday FINDINGS: The right jugular central line has been removed. Mediastinal drain and left chest tube are unchanged. Cardiomediastinal silhouette and sternotomy wires are unchanged. Costophrenic sulci are sharp without effusion. Lung volumes are low. This produces spurious widening of the transverse diameter of the heart and mediastinum and crowding of the basal lung markings. This produces platelike atelectasis at both lung bases. Underlying consolidation is not excluded.. The upper lungs are clear. IMPRESSION: The right jugular central line has been removed. 07/23/2017 - - Read by: Juli Snyder MD Dictated Date/time: 07/23/17 09:26 Electronically Signed by: Juli Snyder MD 07/23/17 10:25 FINAL REPORT [facility] BLOOD BANK RESULTS RBC product Product available (07/22/17 9:00 AM) 07/22/2017 [facility] BLOOD BANK RESULTS Antibody Scrn Negative (07/22/17 2:12 AM) 07/22/2017 [facility] BLOOD BANK RESULTS ABO/Rh A POS 07/22/2017 [facility] HEMATOLOGY PTT 35.1 s 22.9 - 35.8 07/22/2017 [facility] HEMATOLOGY INR 1.42 0.85 - 1.17 07/22/2017 [facility] HEMATOLOGY PT 17.6 s 12.0 - 14.7 07/22/2017 [facility] PARATHYROID PROFILE Ca Norm WB 1.10 mMol/L 1.05 - 1.25 07/22/2017 [facility] PARATHYROID PROFILE Ca Ion WB 1.13 mMol/L 1.05 - 1.25 07/22/2017 [facility] Chest 1view DX Chest 1view DX EXAM: XR CHEST 1 VIEW DATE: 07/22/2017 3:00 AM CDT INDICATION: Abnormal chest sounds - post-op COMPARISON: 07/21/2017 TECHNIQUE: AP chest IMPRESSION: 1. Again seen is right IJV central venous line with tip terminates at atriocaval junction and left thoracostomy drainage tubes. Again seen is mediastinal drainage tube. 2. Cardiomediastinal silhouette is enlarged, unchanged. Aortic atherosclerotic disease. 3. Small bilateral pleural effusions with bibasilar atelectatic changes. 4. Minimal peribronchial cuffing and prominent lung reticulations which may suggest underlying mild interstitial pulmonary edema. Findings are slightly improved compared to previous study. 07/22/2017 - - Read by: Rony Bennett MD Dictated Date/time: 07/22/17 12:00 Electronically Signed by: Rony Bennett MD 07/22/17 12:01 FINAL REPORT [facility] BLOOD BANK RESULTS RBC product Product available (07/21/17 8:53 AM) 07/21/2017 [facility] Chest 1view DX Chest 1view DX EXAM: XR CHEST 1 VIEW DATE: 07/21/2017 3:00 AM CDT INDICATION: Abnormal chest sounds - post-op COMPARISON: 07/20/2017 TECHNIQUE: AP chest IMPRESSION: 1. Again seen is right IJV central venous line with tip terminates at atriocaval junction and left thoracostomy drainage tubes. Again seen is mediastinal drainage tube. 2. Cardiomediastinal silhouette is enlarged, unchanged. Aortic atherosclerotic disease. 3. Small bilateral pleural effusions with bibasilar atelectatic changes. 4. Minimal peribronchial cuffing and prominent lung reticulations which may suggest underlying mild interstitial pulmonary edema. Findings are slightly improved compared to previous study. 07/21/2017 - - Read by: Rony Bennett MD Dictated Date/time: 07/21/17 16:29 Electronically Signed by: Rony Bennett MD 07/21/17 16:30 FINAL REPORT [facility] BLOOD BANK RESULTS RBC product Product available (07/20/17 11:51 AM) 07/20/2017 [facility] BLOOD BANK RESULTS Platelet product FT (07/20/17 10:20 AM) 07/20/2017 [facility] Chest 1view DX Chest 1view DX EXAM: XR CHEST 1 VIEW DATE: 07/20/2017 10:13 AM CDT INDICATION: - bleeding CT COMPARISON: 07/20/2017 at 1:26 AM TECHNIQUE: AP chest IMPRESSION: 1. Again seen is right IJV central venous line with tip terminates at atriocaval junction and left thoracostomy drainage tubes. Again seen is mediastinal drainage tube. 2. Cardiomediastinal silhouette is enlarged, unchanged. Aortic atherosclerotic disease. 3. Small bilateral pleural effusions with bibasilar atelectatic changes. 4. Minimal peribronchial cuffing and prominent lung reticulations which may suggest underlying mild interstitial pulmonary edema. Findings are slightly improved compared to previous study. 07/20/2017 - - Read by: Rony Bennett MD Dictated Date/time: 07/20/17 14:59 Electronically Signed by: Rony Bennett MD 07/20/17 15:01 FINAL REPORT [facility] Chest 1view DX Chest 1view DX EXAM: XR CHEST 1 VIEW DATE: 07/20/2017 3:00 AM CDT INDICATION: abnormal breath sounds - abnormal breath sounds COMPARISON: 07/19/2017 TECHNIQUE: AP chest IMPRESSION: 1. Again seen is right IJV central venous line with tip terminates at atriocaval junction and left thoracostomy drainage tubes. Again seen is mediastinal drainage tube. Left thoracostomy tube again seen in the same position. 2. Cardiomediastinal silhouette is enlarged, unchanged. Aortic atherosclerotic disease. 3. Small bilateral pleural effusions with bibasilar atelectatic changes. 4. Minimal peribronchial cuffing and prominent lung reticulations which may suggest underlying mild interstitial pulmonary edema. Findings are stable compared to previous study. 5. Osseous structures are stable. 07/20/2017 - - Read by: Rony Bennett MD Dictated Date/time: 07/20/17 21:17 Electronically Signed by: Rony Bennett MD 07/20/17 21:18 FINAL REPORT [facility] BACTERIAL - SEROLOGY MRSA by PCR Negative (07/19/17 7:16 PM) 07/20/2017 [facility] CHEM PANEL Alk Phos 30 unit/L 39 - 136 07/20/2017 [facility] CHEM PANEL Bili Total 0.3 mg/dL 0.2 - 1.3 07/20/2017 [facility] CHEM PANEL Albumin Lvl 2.8 g/dL 3.5 - 5.0 07/20/2017 [facility] CHEM PANEL ALT 23 unit/L 0 - 65 07/20/2017 [facility] CHEM PANEL AST 34 unit/L 0 - 37 07/20/2017 [facility] CHEM PANEL Total Protein 4.8 g/dL 6.4 - 8.4 07/20/2017 [facility] CHEM PANEL B/C Ratio 15 6 - 25 07/20/2017 [facility] CHEM PANEL A/G Ratio 1.4 0.7 - 1.6 07/20/2017 [facility] CHEM PANEL Globulin 2.0 g/dL 2.7 - 4.2 07/20/2017 [facility] LIPIDS CHD Risk 3.04 4.00 - 7.30 07/20/2017 [facility] LIPIDS VLDL 22 07/20/2017 [facility] LIPIDS LDL (Calculated) 33 mg/dL <=99 mg/dL 07/20/2017 [facility] LIPIDS Trig 112 mg/dL <=149 mg/dL 07/20/2017 [facility] LIPIDS Chol 82 mg/dL <=199 mg/dL 07/20/2017 [facility] LIPIDS HDL 27 mg/dL >=61 mg/dL 07/20/2017 [facility] Chest 1view DX Chest 1view DX EXAM: XR CHEST 1 VIEW DATE: 07/19/2017 7:16 PM CDT INDICATION: ETT placement - ETT placement COMPARISON: 07/13/2017 TECHNIQUE: AP chest IMPRESSION: 1. Status post a sternotomy with postsurgical changes and interval placement of endotracheal tube with tip terminates 2.5 cm above the shira, interval placement of right IJV central venous line with tip terminates at atriocaval junction and interval placement of mediastinal and left thoracostomy drainage tubes. 2. Cardiomediastinal silhouette is enlarged, unchanged. Aortic atherosclerotic disease. 3. Small bilateral pleural effusions with bibasilar atelectatic changes. 4. Minimal barely Glo cuffing and normal lung reticulations which may suggest underlying mild interstitial pulmonary edema. 07/19/2017 - - Read by: Rony Bennett MD Dictated Date/time: 07/20/17 13:25 Electronically Signed by: Rony Bennett MD 07/20/17 13:27 FINAL REPORT [facility] HEMATOLOGY Basophils # 0.1 K/CMM 0.0 - 0.2 07/19/2017 [facility] BLOOD BANK RESULTS Antibody Scrn Negative (07/18/17 2:55 PM) 07/18/2017 [facility] BLOOD BANK RESULTS ABO/Rh A POS 07/18/2017 [facility] BLOOD BANK RESULTS Platelet product Product available (07/18/17 12:31 PM) 07/18/2017 [facility] BLOOD BANK RESULTS FFP product Product available (07/18/17 12:31 PM) 07/18/2017 [facility] Chest wo contrast CT Chest wo contrast CT EXAM: CT CHEST WITHOUT CONTRAST DATE: 07/18/2017 11:52 AM CDT INDICATION: - evaluate ascending aorta for calcifications TECHNIQUE: Volumetric CT acquisition of the chest without contrast. Axial, sagittal and coronal reconstructions. Axial MIP images included. IV contrast: None. DLP: 972 mGy-cm COMPARISON: No prior CT for comparison, chest radiograph 07/13/2017 DISCUSSION: Lines and Tubes: None. Lower Neck: The right thyroid lobe is slightly heterogeneous and enlarged compared to the left. No definite focal nodules are identified; however, evaluation is limited due to the lack of IV contrast. Heart, Mediastinum, and Great Vessels: The cardiothoracic ratio measures 13.5/25.6. No large pericardial effusion is seen. Moderate to severe three- vessel coronary artery disease is present. Calcifications of the mitral and aortic annuli are noted. The aorta and main pulmonary trunk are within normal limits in caliber. Dense atherosclerotic calcification affects the thoracic aorta extending from the distal aspect of the ascending aorta throughout the arch and descending thoracic aorta and into the abdominal aorta. Dense calcification is also noted along the origins of the right innominate, left common carotid, and left subclavian arteries. Lymph Nodes: No hilar, mediastinal, axillary or internal mammary lymphadenopathy. Lungs: Scattered bilateral subcentimeter calcified granulomas are noted. No definitive noncalcified pulmonary nodules are seen. Patchy groundglass opacity is seen in the dependent regions of both lower lobes as well as the upper lobes. Areas of bronchial wall thickening are also noted in both lower lobes with a few areas of mucous plugging. A small amount of mucous secretion is seen within the trachea. Pleura: No pleural effusion or pneumothorax. Esophagus and Upper abdomen: The left kidney is slightly atrophic and hyperdense, containing a 1.8 cm low-density with internal density of approximately 25 Hounsfield units, slightly denser than a simple cyst. A 1 cm hypodensity is also seen within the left kidney, too small to fully characterize. The remaining visualized upper abdominal structures are unremarkable. Bones and Soft Tissues: No aggressive osseous lesion is seen. 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 Osseous fusion of the sternal segments is noted. IMPRESSION: 1. Moderate to severe calcification of the thoracic aorta extending from the distal ascending aorta through to the partially visualized abdominal aorta as detailed above. 2. Patchy groundglass opacity along the dependent regions of both lower lobes and upper lobes with areas of mild bronchial wall thickening and mucous plugging. This may represent an infectious/inflammatory process combined with dependent atelectasis. A follow-up CT thorax without contrast can be obtained in 2-3 months after appropriate treatment to determine resolution. 3. Evidence of prior granulomatous disease. 4. Heterogeneous and enlarged right thyroid lobe. Further evaluation with a thyroid ultrasound is recommended. 5. Hyperdense and slightly atrophic left kidney with multiple hypodensities, the largest appearing slightly denser than a simple cyst. Further evaluation can be achieved with a renal ultrasound. 07/18/2017 - - This report was dictated by a Turbine Operator/Fellow. I have personally reviewed the images as well as the Resident's interpretation and agree with the findings. Read by: Denis Phelps (Fellow) Resident: Denis Phelps (Fellow) Dictated Date/time: 07/18/17 13:32 Electronically Signed by: Kathi Hayden MD 07/18/17 15:14 FINAL REPORT [facility] CHEM PANEL A/G Ratio 0.9 0.7 - 1.6 07/13/2017 [facility] CHEM PANEL Globulin 3.6 g/dL 2.7 - 4.2 07/13/2017 [facility] CHEM PANEL B/C Ratio 13 6 - 25 07/13/2017 [facility] CHEM PANEL Bili Total 0.4 mg/dL 0.2 - 1.3 07/13/2017 [facility] CHEM PANEL Alk Phos 35 unit/L 39 - 136 07/13/2017 [facility] CHEM PANEL AST 24 unit/L 0 - 37 07/13/2017 [facility] CHEM PANEL ALT 30 unit/L 0 - 65 07/13/2017 [facility] CHEM PANEL Albumin Lvl 3.3 g/dL 3.5 - 5.0 07/13/2017 [facility] CHEM PANEL Total Protein 6.9 g/dL 6.4 - 8.4 07/13/2017 [facility] HEMATOLOGY Plav Effect Plt 264 PRU 07/13/2017 [facility] SPECIAL CHEMISTRY Hgb A1C 8.7 % <=5.6 % 07/13/2017 [facility] Chest 1view DX Chest 1view DX EXAM: XR CHEST 1 VIEW DATE: 07/13/2017 3:00 AM CDT INDICATION: Abnormal chest sounds - abnomral chest sounds TECHNIQUE: AP chest IMPRESSION: No acute process. The lungs are clear. No pneumothorax nor pleural effusion. The cardiac silhouette is stable. 07/13/2017 - - Read by: Bruce Stevenson MD Dictated Date/time: 07/13/17 18:16 Electronically Signed by: Bruce Stevenson MD 07/13/17 18:16 FINAL REPORT [facility] HEMATOLOGY Basophils # 0.1 K/CMM 0.0 - 0.2 07/12/2017 [facility] CHEM PANEL Phosphorus 3.0 mg/dL 2.5 - 4.5 04/21/2016 [facility] CHEM PANEL eGFR 94 mL/min/1.73m2 04/21/2016 Result Comment: The eGFR is calculated using the [...] from the National Kidney Disease Education Program (NKDEP) which additionally recommends that when the eGFR is used in patients with extremes of body mass index for purposes of drug dosing, the eGFR should be multiplied by the estimated BMI. [facility] CHEM PANEL Chloride Lvl 108 meq/L 95 - 109 04/21/2016 [facility] CHEM PANEL Potassium Lvl 4.0 meq/L 3.5 - 5.1 04/21/2016 [facility] CHEM PANEL Sodium Lvl 140 meq/L 135 - 145 04/21/2016 [facility] CHEM PANEL Creatinine Lvl 0.73 mg/dL 0.50 - 1.40 04/21/2016 [facility] CHEM PANEL Glucose Lvl 102 mg/dL 70 - 99 04/21/2016 [facility] CHEM PANEL BUN 11 mg/dL 7 - 22 04/21/2016 [facility] CHEM PANEL Calcium Lvl 7.8 mg/dL 8.5 - 10.5 04/21/2016 [facility] CHEM PANEL AGAP 14.0 meq/L 10.0 - 20.0 04/21/2016 [facility] CHEM PANEL CO2 22 meq/L 24 - 32 04/21/2016 [facility] CHEM PANEL Magnesium Lvl 1.8 mg/dL 1.8 - 2.4 04/21/2016 [facility] HEMATOLOGY Lymphocytes 23.0 % 20.0 - 40.0 04/21/2016 [facility] HEMATOLOGY Eosinophils # 0.1 K/CMM 0.0 - 0.5 04/21/2016 [facility] HEMATOLOGY Monocytes # 0.8 K/CMM 0.0 - 0.8 04/21/2016 [facility] HEMATOLOGY Lymphocytes # 2.1 K/CMM 1.0 - 5.5 04/21/2016 [facility] HEMATOLOGY Segs-Bands # 6.1 K/CMM 1.5 - 8.1 04/21/2016 [facility] HEMATOLOGY Segs 67.1 % 45.0 - 75.0 04/21/2016 [facility] HEMATOLOGY Basophils 0.5 % 0.0 - 1.0 04/21/2016 [facility] HEMATOLOGY Eosinophils 0.8 % 0.0 - 4.0 04/21/2016 [facility] HEMATOLOGY Monocytes 8.6 % 2.0 - 12.0 04/21/2016 [facility] HEMATOLOGY WBC 9.1 K/CMM 3.7 - 10.4 04/21/2016 [facility] HEMATOLOGY MPV 8.5 fL 7.4 - 10.4 04/21/2016 [facility] HEMATOLOGY Platelet 163 K/CMM 133 - 450 04/21/2016 [facility] HEMATOLOGY RDW 15.2 % 11.5 - 14.5 04/21/2016 [facility] HEMATOLOGY Hgb 11.5 g/dL 14.0 - 18.0 04/21/2016 [facility] HEMATOLOGY MCH 28.6 pg 27.0 - 31.0 04/21/2016 [facility] HEMATOLOGY Hct 34.7 % 42.0 - 54.0 04/21/2016 [facility] HEMATOLOGY MCHC 33.1 g/dL 32.0 - 36.0 04/21/2016 [facility] HEMATOLOGY MCV 86.2 fL 80.0 - 94.0 04/21/2016 [facility] HEMATOLOGY RBC 4.02 M/CMM 4.70 - 6.10 04/21/2016 [facility] CHEM PANEL eGFR 71 mL/min/1.73m2 04/20/2016 Result Comment: The eGFR is calculated using the [...] from the National Kidney Disease Education Program (NKDEP) which additionally recommends that when the eGFR is used in patients with extremes of body mass index for purposes of drug dosing, the eGFR should be multiplied by the estimated BMI. [facility] CHEM PANEL Creatinine Lvl 1.06 mg/dL 0.50 - 1.40 04/20/2016 [facility] HEMATOLOGY Platelet 180 K/CMM 133 - 450 04/20/2016 [facility] HEMATOLOGY PTT 30.3 s 22.9 - 35.8 04/20/2016 [facility] BLOOD BANK RESULTS Antibody Scrn Negative (04/20/16 10:32 AM) 04/20/2016 [facility] BLOOD BANK RESULTS ABO/Rh A POS 04/20/2016 [facility] CHEM PANEL eGFR 80 mL/min/1.73m2 04/20/2016 Result Comment: The eGFR is calculated using the [...] from the National Kidney Disease Education Program (NKDEP) which additionally recommends that when the eGFR is used in patients with extremes of body mass index for purposes of drug dosing, the eGFR should be multiplied by the estimated BMI. [facility] CHEM PANEL AGAP 13.1 meq/L 10.0 - 20.0 04/20/2016 [facility] CHEM PANEL Albumin Lvl 4.3 g/dL 3.5 - 5.0 04/20/2016 [facility] CHEM PANEL Phosphorus 2.8 mg/dL 2.5 - 4.5 04/20/2016 [facility] CHEM PANEL CO2 26 meq/L 24 - 32 04/20/2016 [facility] CHEM PANEL Calcium Lvl 9.4 mg/dL 8.5 - 10.5 04/20/2016 [facility] CHEM PANEL Sodium Lvl 139 meq/L 135 - 145 04/20/2016 [facility] CHEM PANEL BUN 11 mg/dL 7 - 22 04/20/2016 [facility] CHEM PANEL Creatinine Lvl 0.96 mg/dL 0.50 - 1.40 04/20/2016 [facility] CHEM PANEL Glucose Lvl 150 mg/dL 70 - 99 04/20/2016 [facility] CHEM PANEL Potassium Lvl 4.1 meq/L 3.5 - 5.1 04/20/2016 [facility] CHEM PANEL Chloride Lvl 104 meq/L 95 - 109 04/20/2016 [facility] HVI VAS Arterial/bypass Lower Ext bilat HVI VAS Arterial/bypass Lower Ext bilat INDICATION: Leg pain status post right lower extremity bypass. IMPRESSION: 1. There is evidence of hemodynamically significant stenosis at the proximal anastomosis and within the proximal segment of the right femoral-popliteal artery bypass graft. 2. There is evidence of arterial occlusion in the distal right popliteal artery, and right peroneal, anterior and posterior tibial arteries. 3. There is evidence of hemodynamically significant stenosis in the proximal left superficial femoral artery. 4. There is evidence of arterial occlusion in the left posterior tibial artery. COMMENT: No prior studies are available for comparison. Bilateral lower extremity arterial grayscale, color Doppler, and spectral waveform analyses were performed. On the right, biphasic waveforms are noted in the common femoral artery. The peak systolic velocity is 127 cm/s. A right femoral-popliteal artery bypass is noted. Peak systolic velocity at the proximal anastomosis is 291 and 415 cm/s. Mid graft velocities are 505, 27.5, and 31.6 in the proximal, mid, and distal segments, respectively. Increased velocities at the proximal anastomosis and within the proximal segment of the femoral-popliteal artery bypass graft are suggestive of hemodynamically significant stenosis. The distal anastomosis is patent with a peak systolic velocity of 196 cm/s. The [place] proximal right popliteal artery is patent with a biphasic waveform and peak systolic velocity of 164 cm/s. The distal right popliteal artery is occluded. Peroneal, anterior, and posterior tibial arteries are occluded. On the left, biphasicwaveforms are noted in the common and deep femoral arteries. Peak systolic velocities are 83 and 111, respectively. Biphasic waveforms are visualized in the superficial femoral artery. The peak systolic velocities are 518, 154, and 58, in the proximal, mid, and distal segments, respectively. The increased velocities in the proximal segment are suggestive of hemodynamically significant stenosis. Monophasic waveforms are noted in the proximal popliteal artery; biphasic waveforms are noted in the distal popliteal artery. Peak systolic velocities are 60 and 118 cm/sec. Monophasic waveforms are noted in the peroneal and anterior tibial artery; the posterior tibial artery is occluded. 04/05/2016 - - This report was dictated by a Turbine Operator/Fellow. I have personally reviewed the images as well as the Resident's interpretation and agree with the findings. Read by: Antonio Cedillo MD Resident: Antonio Cedillo MD Dictated Date/time: 04/06/16 15:17 Electronically Signed by: Jessica Santana MD 04/13/16 10:06 FINAL REPORT [facility] CHEM PANEL eGFR 87 mL/min/1.73m2 09/04/2014 1Result Comment: The eGFR is calculated using [...] from the National Kidney Disease Education Program (NKDEP) which additionally recommends that when the eGFR is used in patients with extremes of body mass index for purposes of drug dosing, the eGFR should be multiplied by the estimated BMI. [facility] CHEM PANEL Chloride Lvl 109 meq/L 95 - 109 09/04/2014 [facility] CHEM PANEL Potassium Lvl 4.1 meq/L 3.5 - 5.1 09/04/2014 [facility] CHEM PANEL Sodium Lvl 141 meq/L 135 - 145 09/04/2014 [facility] CHEM PANEL Creatinine Lvl 0.9 mg/dL 0.5 - 1.4 09/04/2014 [facility] CHEM PANEL BUN 14 mg/dL 7 - 22 09/04/2014 [facility] CHEM PANEL Glucose Lvl 96 mg/dL 70 - 99 09/04/2014 4Interpretive Data: Adult reference range values reflect the clinical guidelines of the [place] [employer]. [facility] CHEM PANEL Calcium Lvl 8.4 mg/dL 8.5 - 10.5 09/04/2014 [facility] CHEM PANEL AGAP 13.1 meq/L 10.0 - 20.0 09/04/2014 [facility] CHEM PANEL CO2 23 meq/L 24 - 32 09/04/2014 [facility] HEMATOLOGY MPV 8.8 fL 7.4 - 10.4 09/04/2014 [facility] HEMATOLOGY Platelet 148 K/CMM 133 - 450 09/04/2014 [facility] HEMATOLOGY RDW 14.1 % 11.5 - 14.5 09/04/2014 [facility] HEMATOLOGY MCHC 33.1 g/dL 32.0 - 36.0 09/04/2014 [facility] HEMATOLOGY MCV 88.5 fL 80.0 - 94.0 09/04/2014 [facility] HEMATOLOGY MCH 29.3 pg 27.0 - 31.0 09/04/2014 [facility] HEMATOLOGY Hct 25.8 % 42.0 - 54.0 09/04/2014 [facility] HEMATOLOGY Hgb 8.6 g/dL 14.0 - 18.0 09/04/2014 [facility] HEMATOLOGY WBC 11.7 K/CMM 3.7 - 10.4 09/04/2014 [facility] HEMATOLOGY RBC 2.92 M/CMM 4.70 - 6.10 09/04/2014 [facility] HEMATOLOGY Eosinophils # 0.1 K/CMM 0.0 - 0.5 09/04/2014 [facility] HEMATOLOGY Lymphocytes # 1.8 K/CMM 1.0 - 5.5 09/04/2014 [facility] HEMATOLOGY Monocytes # 0.9 K/CMM 0.0 - 0.8 09/04/2014 [facility] HEMATOLOGY Segs-Bands # 8.9 K/CMM 1.5 - 8.1 09/04/2014 [facility] HEMATOLOGY Basophils 0.2 % 0.0 - 1.0 09/04/2014 [facility] HEMATOLOGY Monocytes 7.4 % 2.0 - 12.0 09/04/2014 [facility] HEMATOLOGY Eosinophils 0.6 % 0.0 - 4.0 09/04/2014 [facility] HEMATOLOGY Lymphocytes 15.1 % 20.0 - 40.0 09/04/2014 [facility] HEMATOLOGY Segs 76.7 % 45.0 - 75.0 09/04/2014 [facility] CHEM PANEL eGFR 61 mL/min/1.73m2 09/03/2014 2Result Comment: The eGFR is calculated using [...] from the National Kidney Disease Education Program (NKDEP) which additionally recommends that when the eGFR is used in patients with extremes of body mass index for purposes of drug dosing, the eGFR should be multiplied by the estimated BMI. [facility] CHEM PANEL AGAP 12.5 meq/L 10.0 - 20.0 09/03/2014 [facility] CHEM PANEL CO2 22 meq/L 24 - 32 09/03/2014 [facility] CHEM PANEL Calcium Lvl 8.2 mg/dL 8.5 - 10.5 09/03/2014 [facility] CHEM PANEL Potassium Lvl 4.5 meq/L 3.5 - 5.1 09/03/2014 [facility] CHEM PANEL Sodium Lvl 139 meq/L 135 - 145 09/03/2014 [facility] CHEM PANEL Creatinine Lvl 1.2 mg/dL 0.5 - 1.4 09/03/2014 [facility] CHEM PANEL BUN 17 mg/dL 7 - 22 09/03/2014 [facility] CHEM PANEL Chloride Lvl 109 meq/L 95 - 109 09/03/2014 [facility] CHEM PANEL Glucose Lvl 217 mg/dL 70 - 99 09/03/2014 5Interpretive Data: Adult reference range values reflect the clinical guidelines of the [place] [employer]. [facility] HEMATOLOGY MCH 30.1 pg 27.0 - 31.0 09/03/2014 [facility] HEMATOLOGY MCHC 34.5 g/dL 32.0 - 36.0 09/03/2014 [facility] HEMATOLOGY RDW 14.0 % 11.5 - 14.5 09/03/2014 [facility] HEMATOLOGY Platelet 147 K/CMM 133 - 450 09/03/2014 [facility] HEMATOLOGY MCV 87.3 fL 80.0 - 94.0 09/03/2014 [facility] HEMATOLOGY MPV 8.3 fL 7.4 - 10.4 09/03/2014 [facility] HEMATOLOGY Hct 25.4 % 42.0 - 54.0 09/03/2014 [facility] HEMATOLOGY Hgb 8.8 g/dL 14.0 - 18.0 09/03/2014 [facility] HEMATOLOGY RBC 2.91 M/CMM 4.70 - 6.10 09/03/2014 [facility] HEMATOLOGY WBC 14.0 K/CMM 3.7 - 10.4 09/03/2014 [facility] BLOOD BANK RESULTS RBC product Product available (09/03/14 1:35 PM) 09/03/2014 [facility] BLOOD BANK RESULTS Antibody Scrn Negative (09/03/14 9:57 AM) 09/03/2014 [facility] BLOOD BANK RESULTS ABO/Rh A POS 09/03/2014 [facility] CHEM PANEL eGFR 87 mL/min/1.73m2 09/03/2014 3Result Comment: The eGFR is calculated using [...] from the National Kidney Disease Education Program (NKDEP) which additionally recommends that when the eGFR is used in patients with extremes of body mass index for purposes of drug dosing, the eGFR should be multiplied by the estimated BMI. [facility] CHEM PANEL Creatinine Lvl 0.9 mg/dL 0.5 - 1.4 09/03/2014 [facility] HEMATOLOGY POC Activated Clotting Time 182 s 07/09/2014 [facility] HEMATOLOGY POC Activated Clotting Time 277 s 07/09/2014 [facility] BLOOD BANK RESULTS Antibody Scrn Negative (07/09/14 9:20 AM) 07/09/2014 [facility] BLOOD BANK RESULTS ABO/Rh A POS 07/09/2014 [facility] BLOOD BANK RESULTS Antibody Scrn Negative (05/29/2013 06:18:00) 05/29/2013 Normal [facility] BLOOD BANK RESULTS ABO/Rh A POS 05/29/2013 Unknown [facility] BLOOD BANK RESULTS ABO/Rh A POS 05/15/2013 Unknown [facility] BLOOD BANK RESULTS Antibody Scrn Negative (05/15/2013 09:20:00) 05/15/2013 Normal [facility] CHEMISTRY POC Creatinine 0.8 mg/dL 0.5 - 1.4 04/24/2013 Normal [facility] CHEMISTRY eGFR 92 mL/min/1.73m2 04/24/2013 NA 1Result Comment: The eGFR is calculated using [...] from the National Kidney Disease Education Program (NKDEP) which additionally recommends that when the eGFR is used in patients with extremes of body mass index for purposes of drug dosing, the eGFR should be multiplied by the estimated BMI. [facility] Lower extremity CTA Lower extremity CTA EXAM: CTA ABDOMEN AND PELVIS DATE: Apr 24, 2013 10:00:00 AM INDICATION: Peripheral vascular disease COMPARISON: 02/01/2011 TECHNIQUE: Rapid acquisition axially oriented images were obtained from the lung bases through the ischial tuberosities during the infusion of intravenous contrast for the purposes of angiography in the arterial phase. Coronal reformat images are presented in multiple series. Intravenous contrast administration occurred without complication. 100 mL of Omnipaque contrast was administered intravenously. FINDINGS: There is diffuse atherosclerotic calcification of the abdominal aorta and branch vessels. No aneurysmal dilatation is identified. There has been interval placement of bilateral common iliac stents. Right-sided femoropopliteal bypass is identified. The bypass is patent without hemodynamically significant stenosis or occlusion. The sokaogon right superficial femoral artery is completely occluded. There is significant calcification resulting in luminal narrowing of the right popliteal artery just distal to its anastomosis with the bypass graft. A 2 vessel runoff is noted in the right calf. There has been interval increase in the calcification at the bifurcation of the common femoral artery on the left. A long segment left superficial femoral artery/popliteal stent is seen which again demonstrate significant narrowing and minimal intraluminal flow of contrast. The left popliteal artery demonstrates multiple foci of intrastent stenosis with a near completely occluded focus along the distal below the knee segment as seen on series 3 image #[id number]. There is also focal narrowing of the left tibial peroneal trunk. A 2 vessel runoff seen in the left calf. There has been interval increase in size in the right superior pole renal hypodensity which now measures 2.1 cm, previously 1.7 cm and demonstrates mild irregular borders. Otherwise limited evaluation of the visualized bowel is unremarkable. A penile prosthesis is identified. No destructive osseous lesions. No soft tissue abnormality. IMPRESSION: 1. Patent right femoropopliteal bypass with complete occlusion of the sokaogon right superficial femoral artery. 2. Left superficial femoral artery and popliteal artery stent with multiple foci of intraluminal narrowing. 3. Bilateral popliteal artery of the focal calcific plaques with significant stenosis of the left popliteal artery below the knee and again at the left tibial peroneal trunk. 4. Occlusion of bilateral anterior tibial arteries with 2 vessel runoff to bilateral calves. 5. Interval increase in size of a superior pole right renal hypodensity which demonstrates mildly irregular borders. Recommend further evaluation with ultrasound. 04/24/2013 - - This report was dictated by a Turbine Operator/Fellow. I have personally reviewed the images as well as the Resident's interpretation and agree with the findings. Read by: Johanna Diego Resident: Johanna Diego Dictated Date/time: 04/24/13 16:31 Electronically Signed by: Benjy Kent MD 04/29/13 15:48 FINAL REPORT [facility] HVI VAS Arterial/bypass Lower Ext bilat HVI VAS Arterial/bypass Lower Ext bilat INDICATION: Peripheral arterial disease IMPRESSION: 1. Evidence of bilateral multilevel moderate peripheral arterial disease. 2. Evidence of left superficial femoral artery in stent restenosis. COMMENT: Bilateral lower extremity grayscale, color-flow, and Doppler examination of the arterial system was performed. Examination of the right external iliac, common femoral, and profunda femoral arteries demonstrate attenuated monophasic waveforms consistent with moderate peripheral arterial disease. A right femoral to popliteal bypass is visualized. The peak systolic velocity in the proximal anastomosis is 218 cm/sec. The peak systolic velocity in the bypass is 184 cm/sec. The peak systolic velocity in the distal anastomosis is 86 cm/sec. Monophasic waveforms are noted in the right popliteal, anterior tibial, and posterior tibial arteries below the bypass. Examination of the left external iliac, common femoral, profunda femoral, superficial femoral, popliteal, anterior tibial, posterior tibial, and peroneal arteries demonstrates primarily monophasic waveforms consistent with mild to moderate peripheral arterial disease. A stent is noted in the left superficial femoral artery. Elevated velocities of 269 cm/sec is visualized in the stent. This is consistent with hemodynamically significant stenosis. Clinical correlation is advised. 04/03/2013 - - Read by: Ewa Man Dictated Date/time: 04/10/13 14:11 Electronically Signed by: Ewa Man MD 04/10/13 14:19 FINAL REPORT [facility] Vital Signs Vital Sign Value Date Comments Source Systolic (mm Hg) 161 01/09/2019 [facility] Diastolic (mm Hg) 70 01/09/2019 [facility] Respitory Rate 19 01/09/2019 [facility] Systolic (mm Hg) 168 01/09/2019 [facility] Diastolic (mm Hg) 63 01/09/2019 [facility] Respitory Rate 18 01/09/2019 [facility] Systolic (mm Hg) 150 01/09/2019 [facility] Diastolic (mm Hg) 67 01/09/2019 [facility] Respitory Rate 16 01/09/2019 [facility] BMI Calculated 33.64 01/09/2019 [facility] Weight 94.545 01/09/2019 [facility] Height 167.64 cm 01/09/2019 [facility] Temperature Oral (F) 98.7 F 07/26/2017 [facility] Respitory Rate 16 07/26/2017 [facility] Systolic (mm Hg) 116 07/26/2017 [facility] Diastolic (mm Hg) 55 07/26/2017 [facility] Systolic (mm Hg) 119 07/26/2017 [facility] Diastolic (mm Hg) 57 07/26/2017 [facility] Respitory Rate 20 07/26/2017 [facility] Respitory Rate 12 07/26/2017 [facility] Systolic (mm Hg) 147 07/26/2017 [facility] Diastolic (mm Hg) 65 07/26/2017 [facility] Temperature Oral (F) 97.7 F 07/26/2017 [facility] Temperature Oral (F) 97.6 F 07/26/2017 [facility] Height 172.72 cm 07/20/2017 [facility] Height 172.72 cm 07/20/2017 [facility] Weight 88.324 07/19/2017 [facility] Height 172.72 cm 07/12/2017 [facility] Weight 91.364 07/12/2017 [facility] BMI Calculated 30.63 07/12/2017 [facility] Systolic (mm Hg) 138 04/21/2016 [facility] Diastolic (mm Hg) 68 04/21/2016 [facility] Systolic (mm Hg) 149 04/21/2016 [facility] Diastolic (mm Hg) 71 04/21/2016 [facility] Temperature Oral (F) 97.9 F 04/21/2016 [facility] Systolic (mm Hg) 141 04/21/2016 [facility] Diastolic (mm Hg) 64 04/21/2016 [facility] Temperature Oral (F) 97.2 F 04/21/2016 [facility] Respitory Rate 18 04/21/2016 [facility] Temperature Oral (F) 97.5 F 04/21/2016 [facility] Respitory Rate 18 04/21/2016 [facility] Respitory Rate 18 04/21/2016 [facility] Weight 94.091 04/20/2016 [facility] BMI Calculated 31.54 04/20/2016 [facility] Height 172.72 cm 04/20/2016 [facility] Systolic (mm Hg) 132 09/04/2014 [facility] Respitory Rate 15 09/04/2014 [facility] Diastolic (mm Hg) 59 09/04/2014 [facility] Temperature Oral (F) 99.1 F 09/04/2014 [facility] Respitory Rate 17 09/04/2014 [facility] Diastolic (mm Hg) 68 09/04/2014 [facility] Systolic (mm Hg) 151 09/04/2014 [facility] Temperature Oral (F) 98.3 F 09/04/2014 [facility] Respitory Rate 15 09/04/2014 [facility] Diastolic (mm Hg) 60 09/04/2014 [facility] Systolic (mm Hg) 131 09/04/2014 [facility] Temperature Oral (F) 98.4 F 09/04/2014 [facility] Heart Rate 74 09/03/2014 [facility] Weight 94.091 09/03/2014 [facility] BMI Calculated 31.54 09/03/2014 [facility] Height 172.72 cm 09/03/2014 [facility] Diastolic (mm Hg) 65 07/10/2014 [facility] Systolic (mm Hg) 143 07/10/2014 [facility] Diastolic (mm Hg) 67 07/10/2014 [facility] Systolic (mm Hg) 152 07/10/2014 [facility] Systolic (mm Hg) 143 07/09/2014 [facility] Diastolic (mm Hg) 67 07/09/2014 [facility] Temperature Oral (F) 99.0 F 07/09/2014 [facility] Height 172.72 cm 07/09/2014 [facility] BMI Calculated 32 07/09/2014 [facility] Weight 95.455 07/09/2014 [facility] Temperature Oral (F) 99.0 F 07/09/2014 [facility] Diastolic (mm Hg) 68 05/29/2013 [facility] Systolic (mm Hg) 151 05/29/2013 [facility] Diastolic (mm Hg) 64 05/29/2013 [facility] Systolic (mm Hg) 139 05/29/2013 [facility] Diastolic (mm Hg) 65 05/29/2013 [facility] Systolic (mm Hg) 140 05/29/2013 [facility] Respitory Rate 16 05/29/2013 [facility] Temperature Oral (F) 97.8 F 05/29/2013 [facility] Respitory Rate 16 05/29/2013 [facility] Weight 95.455 05/29/2013 [facility] Height 172.72 cm 05/29/2013 [facility] Diastolic (mm Hg) 73 05/15/2013 [facility] Systolic (mm Hg) 154 05/15/2013 [facility] Diastolic (mm Hg) 73 05/15/2013 [facility] Systolic (mm Hg) 154 05/15/2013 [facility] Diastolic (mm Hg) 72 05/15/2013 [facility] Systolic (mm Hg) 153 05/15/2013 [facility] Temperature Oral (F) 97.6 F 05/15/2013 [facility] Height 172.72 cm 05/15/2013 [facility] Weight 95.455 05/15/2013 [facility] Weight 80.909 04/24/2013 [facility] Height 172.72 cm 04/24/2013 [facility] Weight 93.182 04/03/2013 [facility] Height 165.1 cm 04/03/2013 [facility] Encounters Location Location Details Encounter Type Encounter Number Reason For Visit Attending Provider ADM Date DC Date Status Source [facility] Outpatient [id number] PERIPHERAL VASCULAR DISEASE KHARI WILSON 04/03/2013 [facility] JORGE L [id number] PVD MAZEN GANIM 05/15/2013 05/15/2013 [facility] JORGE L [id number] MAZEN GANIM 05/29/2013 05/29/2013 [facility] Outpatient [id number] Khari Wilson 06/18/2014 06/19/2014 [facility] Bedded Outpatient [id number] Mazen Ganim 07/09/2014 07/10/2014 [facility] OBS Observation Patient [id number] Owen Cholton-Ouw 09/03/2014 09/04/2014 [facility] Outpatient [id number] Ewa Sanchez 04/21/2015 04/22/2015 [facility] Outpatient [id number] Owen Sarpy-Ouw 04/05/2016 04/06/2016 [facility] Inpatient [id number] Owen Emir-Ouw 04/20/2016 04/21/2016 [facility] Inpatient [id number] Mazen Ganim 07/12/2017 07/26/2017 [facility] Day Surgery [id number] Owen Sarpy-Ouw 01/09/2019 01/10/2019 [facility] Outpatient [id number] DEEP VEIN THROMBOSISWITH RUN OFF KHARI WILSON Active [facility] Procedures Procedure Code Date Perfomer Comments Source MELVIN - Insertion of stent into common iliac artery [id number] [facility] Femoral-popliteal artery bypass graft [id number] [facility] Prostatectomy [id number] [facility] MELVIN - Insertion of stent into common iliac artery [id number] [facility] Femoral-popliteal artery bypass graft [id number] [facility] Prostatectomy [id number] [facility]
--- OUTSIDE RECORDS SUMMARY | 2019-05-04 14:03 | XMS REPORT | CCD ---
Author Author Auto Generated Organization [facility] Address Unknown Phone Unavailable Care Team Providers Care Wireline Field Operator Name Role Phone Aftab Rivera RP Allergies, Adverse Reactions, Alerts Substance Reaction Status NKDA Active Problem List Condition Effective Dates Status Anxiety Active Coronary artery disease Active Diabetes mellitus Resolved Hyperlipidemia Resolved Hypertension Resolved Prostate carcinoma Resolved PVD - Peripheral vascular disease Resolved Medications Medication Instructions Start Date End Date Status glimepiride 4 mg 4 mg, 1 tab, PO, Daily, 30 tab, 05/15/2013 Ordered oral tablet Substitution Allowed, TAB clopidogrel 75 mg 75 mg, 1 tab, PO, Daily, 30 tab, 05/15/2013 Ordered oral tablet Substitution Allowed, TAB losartan 100 mg oral 100 mg, 1 tab, PO, Daily, 30 tab, 05/15/2013 Ordered tablet Substitution Allowed, TAB Saline Flush 0.9% 5 ml, Route: IVP, Drug Form: INJ, 05/15/2013 05/17/2013 Discontinued Dosing Weight 95.455, kg, Q12H, Start date: 05/15/13 21:00:00, Duration: 30 day, Stop date: 06/14/13 9:00:00 Saline Flush 0.9% 5 ml, Route: IVP, Drug Form: INJ, 05/15/2013 05/17/2013 Discontinued Dosing Weight 95.455, kg, PRN, PRN Line Flush, Start date: 05/15/13 12:12:00, Duration: 30 day, Stop date: 06/14/13 12:11:00 docusate sodium 100 100 mg, 1 cap, Route: PO, Drug 05/15/2013 05/17/2013 Discontinued mg oral capsule form: CAP, Q12H, Dosing Weight 95.455, kg, Start date: 05/15/13 21:00:00, Duration: 30 day, Stop date: 06/14/13 9:00:00 bisacodyl 10 mg, 1 supp, Route: KS, Drug 05/15/2013 05/17/2013 Discontinued form: SUPP, Q24H, Dosing Weight 95.455, kg, PRN Constipation, Start date: 05/15/13 12:12:00, Duration: 30 day, Stop date: 06/14/13 12:11:00 Nubain 2 mg, Route: IVP, Q3H, Dosing 05/15/2013 05/15/2013 Discontinued Weight 95.455, kg, PRN Pain Score 1-3, Start date: 05/15/13 12:12:00, Duration: 30 day, Stop date: 06/14/13 12:11:00 ondansetron 4 mg, 1 tab, Route: PO, Drug form: 05/15/2013 05/17/2013 Discontinued TAB, Q8H, Dosing Weight 95.455, kg, PRN Nausea & Vomiting, Start date: 05/15/13 12:12:00, Duration: 30 day, Stop date: 06/14/13 12:11:00 diphenhydrAMINE 25 mg, 1 cap, Route: PO, Drug form: 05/15/2013 05/17/2013 Discontinued CAP, Bedtime, Dosing Weight 95.455, kg, PRN Insomnia, Start date: 05/15/13 12:12:00, Duration: 30 day, Stop date: 06/14/13 12:11:00 famotidine 20 mg, 1 tab, Route: PO, Drug form: 05/15/2013 05/17/2013 Discontinued TAB, Q12H, Dosing Weight 95.455, kg, Start date: 05/15/13 21:00:00, Duration: 30 day, Stop date: 06/14/13 9:00:00 clopidogrel 75 mg, Route: PO, Drug form: TAB, 05/16/2013 05/15/2013 Discontinued Daily, Dosing Weight 95.455, kg, Start date: 05/16/13 9:00:00, Duration: 30 day, Stop date: 06/14/13 9:00:00 acetylcysteine oral 600 mg, 3 mL, Route: PO, Drug form: 05/15/2013 05/17/2013 Pending solution (mg) SOLN, Q12H, Dosing Weight 95.455, Complete kg, Start date: 05/15/13 21:00:00, Duration: 4 doses or times, Stop date: 05/17/13 9:00:00 nitroglycerin SL Tab 0.4 mg, 1 tab, Route: SL, Drug 05/15/2013 05/15/2013 Completed form: TAB, Q5Min, Dosing Weight 95.455, kg, PRN Chest Pain, Start date: 05/15/13 12:12:00, Duration: 3 doses or times, Stop date: 05/15/13 17:00:00 morphine Sulfate 2 mg, 1 mL, Route: IVP, Drug form: 05/15/2013 05/15/2013 Completed INJ, Q15Min, Dosing Weight 95.455, kg, PRN Chest Pain, Start date: 05/15/13 12:12:00, Duration: 2 doses or times, Stop date: 05/15/13 15:00:00 acetaminophen-hydroc 1 tab, Route: PO, Drug Form: TAB, 05/15/2013 05/17/2013 Discontinued odone 325 mg-5 mg Dosing Weight 95.455, kg, Q4H, PRN oral tablet Pain Score 1-5, Start date: 05/15/13 12:12:00, Duration: 30 day, Stop date: 06/14/13 12:11:00 aspirin 325 mg 325 mg, 1 tab, Route: PO, Drug 05/15/2013 05/15/2013 Completed tablet form: TAB, ONCE, Dosing Weight 95.455, kg, Start date: 05/15/13 12:12:00, Stop date: 05/15/13 12:12:00 Sodium Chloride 0.9% 1,000 mL, Rate: 75 ml/hr, Infuse 05/15/2013 05/17/2013 Discontinued IV 1,000 mL over: 13.3 hr, Route: IV, Dosing Weight 95.455 kg, Total Volume: 1,000, Start date: 05/15/13 12:12:00, Duration: 30 day, Stop date: 06/14/13 12:11:00 Januvia 100 mg, 1 tab, Route: PO, Drug 05/16/2013 05/17/2013 Discontinued form: TAB, Daily, Dosing Weight 95.455, kg, Start date: 05/16/13 9:00:00, Duration: 30 day, Stop date: 06/14/13 9:00:00 Lovaza oral capsule 2,000 mg, 2 cap, Route: PO, Drug 05/15/2013 05/17/2013 Discontinued Form: CAP, Dosing Weight 95.455, kg, BID, Start date: 05/15/13 17:00:00, Duration: 30 day, Stop date: 06/14/13 9:00:00 Januvia 100 mg oral 100 mg, 1 tab, PO, Daily, 30 tab, 05/15/2013 Ordered tablet Substitution Allowed, TAB Bystolic 10 mg, 2 tab, Route: PO, Drug form: 05/16/2013 05/17/2013 Discontinued TAB, Daily, Dosing Weight 95.455, kg, Start date: 05/16/13 9:00:00, Duration: 30 day, Stop date: 06/14/13 9:00:00 losartan 100 mg, 4 tab, Route: PO, Drug 05/16/2013 05/17/2013 Discontinued form: TAB, Daily, Dosing Weight 95.455, kg, Start date: 05/16/13 9:00:00, Duration: 30 day, Stop date: 06/14/13 9:00:00 glimepiride 4 mg, 1 tab, Route: PO, Drug form: 05/16/2013 05/17/2013 Discontinued TAB, Daily, Dosing Weight 95.455, kg, Start date: 05/16/13 9:00:00, Duration: 30 day, Stop date: 06/14/13 9:00:00 clopidogrel 75 mg, 1 tab, Route: PO, Drug form: 05/16/2013 05/17/2013 Discontinued TAB, Daily, Dosing Weight 95.455, kg, Start date: 05/16/13 9:00:00, Duration: 30 day, Stop date: 06/14/13 9:00:00 atorvastatin 40 mg, 1 tab, Route: PO, Drug form: 05/16/2013 05/17/2013 Discontinued TAB, Daily, Dosing Weight 95.455, kg, Start date: 05/16/13 9:00:00, Duration: 30 day, Stop date: 06/14/13 9:00:00 amLODipine 10 mg, 1 tab, Route: PO, Drug form: 05/16/2013 05/17/2013 Discontinued TAB, Daily, Dosing Weight 95.455, kg, Start date: 05/16/13 9:00:00, Duration: 30 day, Stop date: 06/14/13 9:00:00 Lovaza oral capsule 2,000 mg, 2 cap, PO, BID, 120 cap, 05/15/2013 Ordered Substitution Allowed, Maintenance, CAP amLODipine 10 mg 10 mg, 1 tab, PO, Daily, 30 tab, 05/15/2013 Ordered oral tablet Substitution Allowed, TAB Bystolic 10 mg oral 10 mg, 1 tab, PO, Daily, 30 tab, 05/15/2013 Ordered tablet Substitution Allowed, TAB atorvastatin 40 mg 40 mg, 1 tab, PO, Daily, 30 tab, 05/15/2013 Ordered oral tablet Substitution Allowed, TAB metFORmin 500 mg 500 mg, 1 tab, PO, BID, 30 tab, 05/15/2013 05/15/2013 Discontinued oral tablet Substitution Allowed Vital Signs Most recent to oldest [Reference Range]: 1 2 3 Height 172.72 cm (05/15/2013 09:12:00) Temperature Oral [96.4-99.1 DegF] 97.6 DegF (05/15/2013 09:45:00) Systolic Blood Pressure [90-140 mmHg] 154 mmHg *HI* (05/15/2013 15:30:00) 154 mmHg *HI* (05/15/2013 15:15:00) 153 mmHg *HI* (05/15/2013 15:00:00) Diastolic Blood Pressure [60-90 mmHg] 73 mmHg (05/15/2013 15:30:00) 73 mmHg (05/15/2013 15:15:00) 72 mmHg (05/15/2013 15:00:00) Weight 95.455 kg (05/15/2013 09:12:00) Results BLOOD BANK RESULTS Most recent to oldest [Reference Range]: 1 ABO/Rh A POS *Unknown* (05/15/2013 09:20:00) Antibody Scrn Negative (05/15/2013 09:20:00) Procedures Procedures Date Related Diagnosis MELVIN - Insertion of stent into common iliac artery Femoral-popliteal artery bypass graft Prostatectomy
--- OUTSIDE RECORDS SUMMARY | 2019-05-04 14:03 | XMS REPORT | CCD ---
Author Author Auto Generated Organization [facility] Address Unknown Phone Unavailable Care Team Providers Care Solid Waste Disposal Manager Name Role Phone Aftab Rivera RP Allergies, Adverse Reactions, Alerts Substance Reaction Status NKDA Active Problem List Condition Effective Dates Status Anxiety Active Coronary artery disease Active Diabetes mellitus Resolved Diabetes mellitus - adult onset Active Hyperlipidemia Active Hyperlipidemia Resolved Hypertension Active Hypertension Resolved Prostate carcinoma Resolved PVD - Peripheral vascular disease Active PVD - Peripheral vascular disease Resolved Medications Medication Instructions Start Date End Date Status Valium 5 mg, Route: IVP, Drug form: INJ, 05/29/2013 05/29/2013 Completed ONCALL, Dosing Weight 95.455, kg, Start date: 05/29/13 7:00:00 Saline Flush 0.9% 5 ml, Route: IVP, Drug Form: INJ, 05/29/2013 05/29/2013 Canceled Dosing Weight 95.455, kg, Q12H, Start date: 05/29/13 21:00:00, Duration: 30 day, Stop date: 06/28/13 9:00:00 Saline Flush 0.9% 5 ml, Route: IVP, Drug Form: INJ, 05/29/2013 05/29/2013 Discontinued Dosing Weight 95.455, kg, PRN, PRN Line Flush, Start date: 05/29/13 10:01:00, Duration: 30 day, Stop date: 06/28/13 10:00:00 nitroglycerin SL Tab 0.4 mg, 1 tab, Route: SL, Drug 05/29/2013 05/29/2013 Completed form: TAB, Q5Min, Dosing Weight 95.455, kg, PRN Chest Pain, Start date: 05/29/13 10:01:00, Duration: 3 doses or times, Stop date: 05/29/13 15:00:00 Januvia 100 mg, 1 tab, Route: PO, Drug 05/30/2013 05/29/2013 Canceled form: TAB, Daily, Dosing Weight 95.455, kg, Start date: 05/30/13 9:00:00, Duration: 30 day, Stop date: 06/28/13 9:00:00 glimepiride 4 mg, 1 tab, Route: PO, Drug form: 05/30/2013 05/29/2013 Canceled TAB, Daily, Dosing Weight 95.455, kg, Start date: 05/30/13 9:00:00, Duration: 30 day, Stop date: 06/28/13 9:00:00 MaxEPA 2,000 mg, 2 cap, Route: PO, Drug 05/29/2013 05/29/2013 Discontinued Form: CAP, Dosing Weight 95.455, kg, BID, Start date: 05/29/13 17:00:00, Duration: 30 day, Stop date: 06/28/13 9:00:00 Bystolic 10 mg, 2 tab, Route: PO, Drug form: 05/30/2013 05/29/2013 Canceled TAB, Daily, Dosing Weight 95.455, kg, Start date: 05/30/13 9:00:00, Duration: 30 day, Stop date: 06/28/13 9:00:00 losartan 100 mg, 2 tab, Route: PO, Drug 05/30/2013 05/29/2013 Canceled form: TAB, Daily, Dosing Weight 95.455, kg, Start date: 05/30/13 9:00:00, Duration: 30 day, Stop date: 06/28/13 9:00:00 atorvastatin 40 mg, 1 tab, Route: PO, Drug form: 05/30/2013 05/29/2013 Canceled TAB, Daily, Dosing Weight 95.455, kg, Start date: 05/30/13 9:00:00, Duration: 30 day, Stop date: 06/28/13 9:00:00 clopidogrel 75 mg, 1 tab, Route: PO, Drug form: 05/30/2013 05/29/2013 Canceled TAB, Daily, Dosing Weight 95.455, kg, Start date: 05/30/13 9:00:00, Duration: 30 day, Stop date: 06/28/13 9:00:00 aspirin 81 mg 81 mg, 1 tab, Route: PO, Drug form: 05/30/2013 05/29/2013 Canceled tablet, enteric ECTAB, Daily, Dosing Weight 95.455, coated kg, Start date: 05/30/13 9:00:00, Duration: 30 day, Stop date: 06/28/13 9:00:00 amLODipine 10 mg, 1 tab, Route: PO, Drug form: 05/30/2013 05/29/2013 Canceled TAB, Daily, Dosing Weight 95.455, kg, Start date: 05/30/13 9:00:00, Duration: 30 day, Stop date: 06/28/13 9:00:00 Insulin regular 4 unit, 0.04 mL, Route: SUB-Q, Drug 05/29/2013 05/29/2013 Discontinued form: SOLN, TID-Before Meals, Dosing Weight 95.455, kg, PRN Blood Glucose Results, Start date: 05/29/13 10:17:00, Duration: 30 day, Stop date: 06/28/13 10:16:00 Insulin regular 5 unit, 0.05 mL, Route: SUB-Q, Drug 05/29/2013 05/29/2013 Discontinued form: SOLN, TID-Before Meals, Dosing Weight 95.455, kg, PRN Blood Glucose Results, Start date: 05/29/13 10:17:00, Duration: 30 day, Stop date: 06/28/13 10:16:00 Insulin regular 3 unit, 0.03 mL, Route: SUB-Q, Drug 05/29/2013 05/29/2013 Discontinued form: SOLN, TID-Before Meals, Dosing Weight 95.455, kg, PRN Blood Glucose Results, Start date: 05/29/13 10:17:00, Duration: 30 day, Stop date: 06/28/13 10:16:00 Insulin regular 1 unit, 0.01 mL, Route: SUB-Q, Drug 05/29/2013 05/29/2013 Discontinued form: SOLN, TID-Before Meals, Dosing Weight 95.455, kg, PRN Blood Glucose Results, Start date: 05/29/13 10:17:00, Duration: 30 day, Stop date: 06/28/13 10:16:00 Insulin regular 2 unit, 0.02 mL, Route: SUB-Q, Drug 05/29/2013 05/29/2013 Discontinued form: SOLN, TID-Before Meals, Dosing Weight 95.455, kg, PRN Blood Glucose Results, Start date: 05/29/13 10:17:00, Duration: 30 day, Stop date: 06/28/13 10:16:00 Dextrose 50% Syringe 25 gm, 50 mL, Route: IVP, Drug 05/29/2013 05/29/2013 Discontinued Form: INJ, Dosing Weight 95.455, kg, PRN, PRN Blood Glucose Results, Start date: 05/29/13 10:17:00, Duration: 30 day, Stop date: 06/28/13 10:16:00 glucagon 1 mg, Route: IM, Drug form: 05/29/2013 05/29/2013 Discontinued PDR/INJ, PRN, Dosing Weight 95.455, kg, PRN Blood Glucose Results, Start date: 05/29/13 10:17:00, Duration: 30 day, Stop date: 06/28/13 10:16:00 Dextrose 50% Syringe 12.5 gm, 25 mL, Route: IVP, Drug 05/29/2013 05/29/2013 Discontinued Form: INJ, Dosing Weight 95.455, kg, PRN, PRN Blood Glucose Results, Start date: 05/29/13 10:17:00, Duration: 30 day, Stop date: 06/28/13 10:16:00 aspirin 81 mg 81 mg, 1 tab, PO, Daily, 0 tab, 05/29/2013 Ordered tablet, enteric Substitution Allowed, ECTAB coated Vital Signs Most recent to oldest [Reference Range]: 1 2 3 Height 172.72 cm (05/29/2013 05:57:00) Temperature Oral [96.4-99.1 DegF] 97.8 DegF (05/29/2013 06:15:00) Systolic Blood Pressure [90-140 mmHg] 151 mmHg *HI* (05/29/2013 16:00:00) 139 mmHg (05/29/2013 15:00:00) 140 mmHg (05/29/2013 14:00:00) Diastolic Blood Pressure [60-90 mmHg] 68 mmHg (05/29/2013 16:00:00) 64 mmHg (05/29/2013 15:00:00) 65 mmHg (05/29/2013 14:00:00) Respiratory Rate [14-20 BRMIN] 16 BRMIN (05/29/2013 10:00:00) 16 BRMIN (05/29/2013 06:15:00) Weight 95.455 kg (05/29/2013 05:57:00) Results BLOOD BANK RESULTS Most recent to oldest [Reference Range]: 1 ABO/Rh A POS *Unknown* (05/29/2013 06:18:00) Antibody Scrn Negative (05/29/2013 06:18:00)
--- OUTSIDE RECORDS SUMMARY | 2019-05-04 14:04 | XMS REPORT | Summary of Care ---
Author Author CED Gonzalez, JUAN Aldridge Unknown Address [facility] Phone Unavailable Care Team Providers Care Brushing Machine Operator Name Role Phone [facility]ASC[facility], SURGERY Unavailable Unavailable ALEXANDRU FELICIANO, TERRANCE Baltazar Unavailable Unavailable CED FELICIANO NE, JUAN Gomez Unavailable Unavailable JEANNE FELICIANO NE, CHEL HAQ Unavailable Unavailable Unavailable Unavailable Functional Status Name Dates Details Functional status health issues are not documented Status: Name Dates Details Cognitive status health issues are not documented Status: Problems Name Dates Details Peripheral arterial disease (443.9, I73.9) Status: Active Leg pain (729.5, M79.606) Status: Active 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, 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 3-vessel CAD (414.00, I25.10) Status: Active Claudication (443.9, I73.9) Status: Active Medications Name Dates Details Cozaar TABS Active Bystolic TABS * Refills: 0 Active Aspirin TABS * Refills: 0 Active Lovaza CAPS * Refills: 0 Active Glimepiride TABS * Refills: 0 Active metFORMIN HCl TABS * Refills: 0 Active Amiodarone HCl - 200 MG Oral Tablet * Refills: 0 Active Bystolic 20 MG Oral Tablet * Refills: 0 Active Lasix TABS * Refills: 0 Active Cilostazol 100 MG Oral Tablet * Refills: 0 Active Gabapentin CAPS * Refills: 0 Active Crestor 20 MG Oral Tablet * Refills: 0 Active Allergies and Adverse Reactions Name Dates Details No Known Drug Allergies (Allergy) Status: Active Past Medical History Name Dates Details History of diabetes mellitus (V12.29, Z86.39) Status: Resolved History of essential hypertension (V12.59, Z86.79) Status: Resolved History of hyperlipidemia (V12.29, Z86.39) Status: Resolved Procedures Procedure Dates Details History of Coronary artery bypass graft Completed Immunization Name Dates Details Immunizations not documented Social History Name Dates Details - Status: Name Dates Details Never smoker Vital Signs Date Test Result Details [id number] BP Systolic 174 mm[Hg] Status: BP Diastolic 74 mm[Hg] Status: Height 60 in Status: Weight 211.8 lb Status: Body Mass Index Calculated 41.36 kg/m2 Status: Body Surface Area Calculated 1.91 m2 Status: Temperature 98 f Status: Heart Rate 85 /min Status: Results Date Description Value Details Results not documented Plan of Care Name Dates Details Planned Observations Planned Goals not documented Planned Encounters Appointment; JUAN COUGHLIN M.D. On: 28-Apr-2019 9:45 Instructions Name Dates Details Instructions not documented Encounters Appointment; SUSANA GIBBS M.D. Encounter Diagnosis: Problem not documented On: 05-Aug-2017 9:15 Appointment; SUSANA GIBBS M.D. Encounter Diagnosis: Problem not documented On: 02-Sep-2017 9:15 Appointment; JUAN COUGHLIN M.D. Encounter Diagnosis: Problem not documented On: 08-Oct-2017 9:30 Appointment; JUAN COUGHLIN M.D. Encounter Diagnosis: Problem not documented On: 07-Jan-2018 9:45 Appointment; [facility], [facility] Encounter Diagnosis: Problem not documented On: 07-Jan-2018 14:00 Appointment; VASC[facility], [facility] Encounter Diagnosis: Problem not documented On: 07-Jan-2018 14:30 Appointment; JUAN COUGHLIN M.D. Encounter Diagnosis: Problem not documented On: 03-Nov-2018 10:00 Appointment; [facility]ASC[facility], SURGERY Encounter Diagnosis: Problem not documented On: 26-Jan-2019 9:45
--- OUTSIDE RECORDS SUMMARY | 2019-05-04 14:04 | XMS REPORT | Summary of Care ---
Author Organization Unknown Address Unknown Phone Unavailable Encounter [facility](LUIZ) [id number] Date(s): 09/03/14 - 09/04/14 [facility] [address] Discharge Disposition: Home Physician Attending: Owen Navas MD Physician Admitting: Owen Navas MD Physician_Referring: Owen Navas MD Reason for Visit PERIPHERAL ARTERIAL DISEASE, ICD-9# 443.9 Vital Signs 1 2 3 Most recent to oldest [Reference Range]: 172.72 cm (09/03/14 6:26 AM) Height 99.1 DegF (09/04/14 11:35 AM) 98.3 DegF (09/04/14 8:00 AM) 98.4 DegF (09/04/14 5:00 AM) Temperature Oral [96.4-99.1 DegF] 132 mmHg (09/04/14 12:11 PM) 151 mmHg *HI* (09/04/14 9:00 AM) 131 mmHg (09/04/14 8:00 AM) Systolic Blood Pressure [90-140 mmHg] 59 mmHg *LOW* (09/04/14 12:11 PM) 68 mmHg (09/04/14 9:00 AM) 60 mmHg (09/04/14 8:00 AM) Diastolic Blood Pressure [60-90 mmHg] 15 BRMIN (09/04/14 12:11 PM) 17 BRMIN (09/04/14 9:00 AM) 15 BRMIN (09/04/14 8:00 AM) Respiratory Rate [14-20 BRMIN] 74 bpm (09/03/14 6:30 AM) Peripheral Pulse Rate [60-100 bpm] 94.091 kg (09/03/14 6:26 AM) Weight 31.54 m2 (09/03/14 6:26 AM) Body Mass Index Problem List Condition [...] Substance Reaction Severity Status NKDA Active Medications amLODIPine 10 mg, 1 tab, Route: PO, Drug form: TAB, Daily, Dosing Weight 94.091, kg, Start date: 09/04/14 9:00:00, Duration: 30 day, Stop date: 10/03/14 9:00:00 Notes: (Same as: Norvasc) Start Date: 09/04/14 Stop Date: 09/04/14 Status: Discontinued amLODIPine 10 mg oral tablet 10 mg=1 tab, PO, Daily, # 30 tab, 0 Refill(s) Start Date: 09/04/14 Status: Ordered Ancef 1 gm, Route: IVPB, ONCE, Dosing Weight 94.091, kg, Start date: 09/03/14 8:25:00, Duration: 1 doses or times, Stop date: 09/03/14 8:25:00 Start Date: 09/03/14 Stop Date: 09/03/14 Status: Completed aspirin 81 mg tablet, enteric coated 81 mg, 1 tab, Route: PO, Drug form: ECTAB, Daily, Dosing Weight 94.091, kg, Star t date: 09/04/14 9:00:00, Duration: 30 day, Stop date: 10/03/14 9:00:00 Notes: Do not crush or chew.(Same As: Ecotrin) Start Date: 09/04/14 Stop Date: 09/04/14 Status: Discontinued aspirin 81 mg tablet, enteric coated 81 mg=1 tab, PO, Daily, # 120 tab, 0 Refill(s) Start Date: 09/04/14 Status: Ordered atorvastatin 40 mg, 1 tab, Route: PO, Drug form: TAB, Daily, Dosing Weight 94.091, kg, Start date: 09/04/14 9:00:00, Duration: 30 day, Stop date: 10/03/14 9:00:00 Notes: (Same as: Lipitor) Start Date: 09/04/14 Stop Date: 09/04/14 Status: Discontinued atorvastatin 40 mg oral tablet 40 mg=1 tab, PO, Daily, # 30 tab, 0 Refill(s) Start Date: 09/04/14 Status: Ordered Bystolic 10 mg, 2 tab, Route: PO, Drug form: TAB, Daily, Dosing Weight 94.091, kg, Start date: 09/04/14 9:00:00, Duration: 30 day, Stop date: 10/03/14 9:00:00 Notes: (same as: Bystolic) Start Date: 09/04/14 Stop Date: 09/04/14 Status: Discontinued Bystolic 10 mg oral tablet 10 mg=1 tab, PO, Daily, # 30 tab, 0 Refill(s) Start Date: 09/04/14 Status: Ordered chlorhexidine topical 0.12% liquid 15 ml, Route: S&SPIT, Q12H, Drug form: LIQ, Start date: 09/03/14 21:00:00, Duration: 2 week, Stop date: 09/17/14 9:00:00 Notes: (Same As: Peridex) Start Date: 09/03/14 Stop Date: 09/04/14 Status: Discontinued chlorhexidine topical 4% soap 1 appl, Route: BATHE, Q-M-W-F, Drug form: SOAP, Start date: 09/06/14 9:00:00, Du ration: 30 day, Stop date: 10/04/14 9:00:00 Notes: (Same As: Hibiclens) Start Date: 09/06/14 Stop Date: 09/04/14 Status: Canceled clopidogrel 75 mg, 1 tab, Route: PO, Drug form: TAB, Daily, Dosing Weight 94.091, kg, Start date: 09/04/14 9:00:00, Duration: 30 day, Stop date: 10/03/14 9:00:00 Notes: (Same As: Plavix) Start Date: 09/04/14 Stop Date: 09/04/14 Status: Discontinued clopidogrel 75 mg oral tablet 75 mg=1 tab, PO, Daily, # 60 tab, 0 Refill(s) Start Date: 09/04/14 Status: Ordered Dilaudid 0.5 mg, 0.25 mL, Route: IV, Drug form: INJ, ONCE, Dosing Weight 94.091, kg, PRN Pain, Start date: 09/03/14 15:49:00 Notes: Same as: Dilaudid Start Date: 09/03/14 Stop Date: 09/03/14 Status: Completed docusate sodium 100 mg oral capsule 100 mg, 1 cap, Route: PO, Drug form: CAP, BID, Dosing Weight 94.091, kg, Start d ate: 09/03/14 17:00:00, Duration: 30 day, Stop date: 10/03/14 9:00:00 Notes: (Same as: Colace) (Do Not Crush) Start Date: 09/03/14 Stop Date: 09/04/14 Status: Discontinued heparin 5,000 unit, 1 mL, Route: SUB-Q, Drug form: INJ, Q8H, Dosing Weight 94.091, kg, S tart date: 09/03/14 16:00:00, Duration: 30 day, Stop date: 10/03/14 8:00:00 Notes: porcine heparin Start Date: 09/03/14 Stop Date: 09/04/14 Status: Discontinued insulin aspart 3 unit, 0.03 mL, Route: SUB-Q, Drug form: SOLN, TID-Before Meals, Dosing Weight 94.091, kg, PRN Blood Glucose Results, Start date: 09/03/14 14:43:00, Duration: 30 day, Stop date: 10/03/14 14:42:00 Notes: Roll in palms of hands gently; Do not shake vigorously. (Same as: NovoLO G)"single patient use only" Stable for 28 days at room temperature.Expires in _ ____ days from Date Start Date: 09/03/14 Stop Date: 09/04/14 Status: Discontinued insulin aspart 2 unit, 0.02 mL, Route: SUB-Q, Drug form: SOLN, TID-Before Meals, Dosing Weight 94.091, kg, PRN Blood Glucose Results, Start date: 09/03/14 14:43:00, Duration: 30 day, Stop date: 10/03/14 14:42:00 Notes: Roll in palms of hands gently; Do not shake vigorously. (Same as: NovoLO G)"single patient use only" Stable for 28 days at room temperature.Expires in _ ____ days from Date Start Date: 09/03/14 Stop Date: 09/04/14 Status: Discontinued insulin aspart 5 unit, 0.05 mL, Route: SUB-Q, Drug form: SOLN, TID-Before Meals, Dosing Weight 94.091, kg, PRN Blood Glucose Results, Start date: 09/03/14 14:43:00, Duration: 30 day, Stop date: 10/03/14 14:42:00 Notes: Roll in palms of hands gently; Do not shake vigorously. (Same as: NovoLO G)"single patient use only" Stable for 28 days at room temperature.Expires in _ ____ days from Date Start Date: 09/03/14 Stop Date: 09/04/14 Status: Discontinued insulin aspart 4 unit, 0.04 mL, Route: SUB-Q, Drug form: SOLN, TID-Before Meals, Dosing Weight 94.091, kg, PRN Blood Glucose Results, Start date: 09/03/14 14:43:00, Duration: 30 day, Stop date: 10/03/14 14:42:00 Notes: Roll in palms of hands gently; Do not shake vigorously. (Same as: NovoLO G)"single patient use only" Stable for 28 days at room temperature.Expires in _ ____ days from Date Start Date: 09/03/14 Stop Date: 09/04/14 Status: Discontinued insulin aspart 3 unit, 0.03 mL, Route: SUB-Q, Drug form: SOLN, Bedtime, Dosing Weight 94.091, k g, PRN Blood Glucose Results, Start date: 09/03/14 14:43:00, Duration: 30 day, S top date: 10/03/14 14:42:00 Notes: Roll in palms of hands gently; Do not shake vigorously. (Same as: NovoLO G)"single patient use only" Stable for 28 days at room temperature.Expires in _ ____ days from Date Start Date: 09/03/14 Stop Date: 09/04/14 Status: Discontinued insulin aspart 2 unit, 0.02 mL, Route: SUB-Q, Drug form: SOLN, Bedtime, Dosing Weight 94.091, k g, PRN Blood Glucose Results, Start date: 09/03/14 14:43:00, Duration: 30 day, S top date: 10/03/14 14:42:00 Notes: Roll in palms of hands gently; Do not shake vigorously. (Same as: NovoLO G)"single patient use only" Stable for 28 days at room temperature.Expires in _ ____ days from Date Start Date: 09/03/14 Stop Date: 09/04/14 Status: Discontinued insulin aspart 4 unit, 0.04 mL, Route: SUB-Q, Drug form: SOLN, Bedtime, Dosing Weight 94.091, k g, PRN Blood Glucose Results, Start date: 09/03/14 14:43:00, Duration: 30 day, S top date: 10/03/14 14:42:00 Notes: Roll in palms of hands gently; Do not shake vigorously. (Same as: NovoLO G)"single patient use only" Stable for 28 days at room temperature.Expires in _ ____ days from Date Start Date: 09/03/14 Stop Date: 09/04/14 Status: Discontinued insulin aspart 1 unit, 0.01 mL, Route: SUB-Q, Drug form: SOLN, Bedtime, Dosing Weight 94.091, k g, PRN Blood Glucose Results, Start date: 09/03/14 14:43:00, Duration: 30 day, S top date: 10/03/14 14:42:00 Notes: Roll in palms of hands gently; Do not shake vigorously. (Same as: NovoLO G)"single patient use only" Stable for 28 days at room temperature.Expires in _ ____ days from Date Start Date: 09/03/14 Stop Date: 09/04/14 Status: Discontinued insulin aspart 1 unit, 0.01 mL, Route: SUB-Q, Drug form: SOLN, TID-Before Meals, Dosing Weight 94.091, kg, PRN Blood Glucose Results, Start date: 09/03/14 14:43:00, Duration: 30 day, Stop date: 10/03/14 14:42:00 Notes: Roll in palms of hands gently; Do not shake vigorously. (Same as: NovoARCENIO G)"single patient use only" Stable for 28 days at room temperature.Expires in _ ____ days from Date Start Date: 09/03/14 Stop Date: 09/04/14 Status: Discontinued losartan 100 mg, 2 tab, Route: PO, Drug form: TAB, Daily, Dosing Weight 94.091, kg, Start date: 09/04/14 9:00:00, Duration: 30 day, Stop date: 10/03/14 9:00:00 Notes: (Same as: Fernanda) Start Date: 09/04/14 Stop Date: 09/04/14 Status: Discontinued losartan 100 mg oral tablet 100 mg=1 tab, PO, Daily, # 30 tab, 0 Refill(s) Start Date: 09/04/14 Status: Ordered morphine Sulfate 2 mg, 0.5 mL, Route: IVP, Drug form: INJ, Q2H, Dosing Weight 94.091, kg, PRN Shaista akthrough Pain, Start date: 09/03/14 14:38:00, Duration: 30 day, Stop date: 09/18 05/01 14:37:00 Notes: (Same as:MORPhine Sulfate) Start Date: 09/03/14 Stop Date: 09/04/14 Status: Discontinued nitroglycerin 0.4 mg, 1 tab, Route: SL, Drug form: TAB, Q5Min, Dosing Weight 94.091, kg, PRN C hest Pain, Start date: 09/03/14 14:38:00, Duration: 30 day, Stop date: 10/03/14 13:37:00 Notes: (Same as:Nitroquick, Nitrostat)"Do Not Crush" Sublingual tablet Start Date: 09/03/14 Stop Date: 09/04/14 Status: Discontinued [place]t 10/325 oral tablet 2 tab, Route: PO, Drug Form: TAB, Dosing Weight 94.091, kg, Q4H, PRN Pain Score 6-10, Start date: 09/03/14 14:38:00, Duration: 30 day, Stop date: 10/03/14 14:37 :00 Notes: Do not exceed 4gm/day of acetaminophen. (Same as: [place]t 325/10) Start Date: 09/03/14 Stop Date: 09/04/14 Status: Discontinued [place]t 10/325 oral tablet 1 tab, Route: PO, Drug Form: TAB, Dosing Weight 94.091, kg, Q4H, PRN Pain Score 1-5, Start date: 09/03/14 14:38:00, Duration: 30 day, Stop date: 10/03/14 14:37: 00 Notes: Do not exceed 4gm/day of acetaminophen. (Same as: H[place]t 325/10) Start Date: 09/03/14 Stop Date: 09/04/14 Status: Discontinued NS 1,000 mL 1,000 mL, Rate: 100 ml/hr, Infuse over: 10 hr, Route: IV, Dosing Weight 94.091 k g, Total Volume: 1,000, Start date: 09/03/14 14:38:00, Duration: 30 day, Stop da te: 10/03/14 14:37:00 Start Date: 09/03/14 Stop Date: 09/04/14 Status: Discontinued ondansetron 4 mg, 2 mL, Route: IVP, Drug form: INJ, Q8H, Dosing Weight 94.091, kg, PRN Nause a & Vomiting, Start date: 09/03/14 14:38:00, Duration: 30 day, Stop date: 10/03/14 14:37:00 Notes: (Same as: Suhas) Start Date: 09/03/14 Stop Date: 09/04/14 Status: Discontinued Tylenol with Codeine #3 oral tablet 1 tab, PO, Q6H, # 60 tab, 1 Refill(s) Start Date: 09/04/14 Status: Ordered Results BLOOD BANK RESULTS 1 2 3 Most recent to oldest [Reference Range]: A POS *Unknown* (09/03/14 9:57 AM) ABO/Rh Negative (09/03/14 9:57 AM) Antibody Scrn Product available (09/03/14 1:35 PM) RBC product ELECTROLYTES 1 2 3 Most recent to oldest [Reference Range]: 141 mEq/L (09/04/14 6:15 AM) 139 mEq/L (09/03/14 3:30 PM) Sodium Lvl [135-145 mEq/L] 4.1 mEq/L (09/04/14 6:15 AM) 4.5 mEq/L (09/03/14 3:30 PM) Potassium Lvl [3.5-5.1 mEq/L] 109 mEq/L (09/04/14 6:15 AM) 109 mEq/L (09/03/14 3:30 PM) Chloride Lvl [95-109 mEq/L] 23 mEq/L *LOW* (09/04/14 6:15 AM) 22 mEq/L *LOW* (09/03/14 3:30 PM) CO2 [24-32 mEq/L] 13.1 mEq/L (09/04/14 6:15 AM) 12.5 mEq/L (09/03/14 3:30 PM) AGAP [10.0-20.0 mEq/L] CHEM PANEL 1 2 3 Most recent to oldest [Reference Range]: 0.9 mg/dL (09/04/14 6:15 AM) 1.2 mg/dL (09/03/14 3:30 PM) 0.9 mg/dL (09/03/14 9:32 AM) Creatinine Lvl [0.5-1.4 mg/dL] 87 mL/min/1.73m2 1 *NA* (09/04/14 6:15 AM) 61 mL/min/1.73m2 2 *NA* (09/03/14 3:30 PM) 87 mL/min/1.73m2 3 *NA* (09/03/14 9:32 AM) eGFR 14 mg/dL (09/04/14 6:15 AM) 17 mg/dL (09/03/14 3:30 PM) BUN [7-22 mg/dL] 96 mg/dL 4 (09/04/14 6:15 AM) 217 mg/dL 5 *HI* (09/03/14 3:30 PM) Glucose Lvl [70-99 mg/dL] 8.4 mg/dL *LOW* (09/04/14 6:15 AM) 8.2 mg/dL *LOW* (09/03/14 3:30 PM) Calcium Lvl [8.5-10.5 mg/dL] 1Result Comment: The eGFR is calculated [...] be mul tiplied by the estimated BMI. 4Interpretive Data: Adult reference range values reflect the clinical guidelines of the [place] [employer]. 5Interpretive Data: Adult reference range values reflect the clinical guidelines of the [place] [employer]. HEMATOLOGY 1 2 3 Most recent to oldest [Reference Range]: 11.7 K/CMM *HI* (09/04/14 6:15 AM) 14.0 K/CMM *HI* (09/03/14 3:30 PM) WBC [3.7-10.4 K/CMM] 2.92 M/CMM *LOW* (09/04/14 6:15 AM) 2.91 M/CMM *LOW* (09/03/14 3:30 PM) RBC [4.70-6.10 M/CMM] 8.6 g/dL *LOW* (09/04/14 6:15 AM) 8.8 g/dL *LOW* (09/03/14 3:30 PM) Hgb [14.0-18.0 g/dL] 25.8 % *LOW* (09/04/14 6:15 AM) 25.4 % *LOW* (09/03/14 3:30 PM) Hct [42.0-54.0 %] 88.5 fL (09/04/14 6:15 AM) 87.3 fL (09/03/14 3:30 PM) MCV [80.0-94.0 fL] 29.3 pg (09/04/14 6:15 AM) 30.1 pg (09/03/14 3:30 PM) MCH [27.0-31.0 pg] 33.1 g/dL (09/04/14 6:15 AM) 34.5 g/dL (09/03/14 3:30 PM) MCHC [32.0-36.0 g/dL] 14.1 % (09/04/14 6:15 AM) 14.0 % (09/03/14 3:30 PM) RDW [11.5-14.5 %] 148 K/CMM (09/04/14 6:15 AM) 147 K/CMM (09/03/14 3:30 PM) Platelet [133-450 K/CMM] 8.8 fL (09/04/14 6:15 AM) 8.3 fL (09/03/14 3:30 PM) MPV [7.4-10.4 fL] 76.7 % *HI* (09/04/14 6:15 AM) Segs [45.0-75.0 %] 15.1 % *LOW* (09/04/14 6:15 AM) Lymphocytes [20.0-40.0 %] 7.4 % (09/04/14 6:15 AM) Monocytes [2.0-12.0 %] 0.6 % (09/04/14 6:15 AM) Eosinophils [0.0-4.0 %] 0.2 % (09/04/14 6:15 AM) Basophils [0.0-1.0 %] 8.9 K/CMM *HI* (09/04/14 6:15 AM) Segs-Bands # [1.5-8.1 K/CMM] 1.8 K/CMM (09/04/14 6:15 AM) Lymphocytes # [1.0-5.5 K/CMM] 0.9 K/CMM *HI* (09/04/14 6:15 AM) Monocytes # [0.0-0.8 K/CMM] 0.1 K/CMM (09/04/14 6:15 AM) Eosinophils # [0.0-0.5 K/CMM] Medications Administered During Your Visit No data available for this section Immunizations No data available for this section Social History Social History Type Response Alcohol Use: Never
--- OUTSIDE RECORDS SUMMARY | 2019-05-04 14:04 | XMS REPORT | Summary of Care ---
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 Vital Signs 1 2 3 Most recent to oldest [Reference Range]: 172.72 cm (07/09/14 10:20 AM) Height 99.0 DegF (07/09/14 10:35 AM) 99.0 DegF (07/09/14 8:45 AM) Temperature Oral [96.4-99.1 DegF] 143 mmHg *HI* (07/09/14 7:42 PM) 152 mmHg *HI* (07/09/14 7:38 PM) 143 mmHg *HI* (07/09/14 6:46 PM) Systolic Blood Pressure [90-140 mmHg] 65 mmHg (07/09/14 7:42 PM) 67 mmHg (07/09/14 7:38 PM) 67 mmHg (07/09/14 6:46 PM) Diastolic Blood Pressure [60-90 mmHg] 95.455 kg (07/09/14 10:20 AM) Weight 32 m2 (07/09/14 10:20 AM) Body Mass Index Problem List Condition [...] Duration: 30 day, Stop date: 08/08/14 9:00:00 Notes: (Same as: Norvasc) Start Date: 07/10/14 Stop Date: 07/10/14 Status: Canceled aspirin 81 mg tablet, enteric coated 81 mg, 1 tab, Route: PO, Drug form: ECTAB, Daily, Dosing Weight 95.455, kg, Star t date: 07/10/14 9:00:00, Duration: 30 day, Stop date: 08/08/14 9:00:00 Notes: Do not crush or chew.(Same As: Ecotrin) Start Date: 07/10/14 Stop Date: 07/10/14 Status: Canceled atorvastatin 40 mg, 1 tab, Route: PO, Drug form: TAB, Daily, Dosing Weight 95.455, kg, Start date: 07/10/14 9:00:00, Duration: 30 day, Stop date: 08/08/14 9:00:00 Notes: (Same as: Lipitor) Start Date: 07/10/14 Stop Date: 07/10/14 Status: Canceled Bystolic 10 mg, 2 tab, Route: PO, Drug form: TAB, Daily, Dosing Weight 95.455, kg, Start date: 07/10/14 9:00:00, Duration: 30 day, Stop date: 08/08/14 9:00:00 Notes: (same as: Bystolic) Start Date: 07/10/14 Stop Date: 07/10/14 Status: Canceled clopidogrel 75 mg, 1 tab, Route: PO, Drug form: TAB, Daily, Dosing Weight 95.455, kg, Start date: 07/10/14 9:00:00, Duration: 30 day, Stop date: 08/08/14 9:00:00 Notes: (Same As: Plavix) Start Date: 07/10/14 Stop Date: 07/10/14 Status: Canceled glimepiride 4 mg, 1 tab, Route: PO, Drug form: TAB, Daily, Dosing Weight 95.455, kg, Start d ate: 07/10/14 9:00:00, Duration: 30 day, Stop date: 08/08/14 9:00:00 Notes: (Same as: Amaryl) Start Date: 07/10/14 Stop Date: 07/10/14 Status: Canceled Januvia 100 mg, 1 tab, Route: PO, Drug form: TAB, Daily, Dosing Weight 95.455, kg, Start date: 07/10/14 9:00:00, Duration: 30 day, Stop date: 08/08/14 9:00:00 Notes: (Same as: Januvia) Start Date: 07/10/14 Stop Date: 07/10/14 Status: Canceled lidocaine-prilocaine topical 1 appl, Route: TOP, ONCE, Drug form: CRM, Start date: 07/09/14 9:40:00, Stop renate e: 07/09/14 9:40:00 Notes: Apply to desired area 2 hrs prior to needle insertion. (Same as: Emla) Start Date: 07/09/14 Stop Date: 07/09/14 Status: Completed losartan 100 mg, 2 tab, Route: PO, Drug form: TAB, Daily, Dosing Weight 95.455, kg, Start date: 07/10/14 9:00:00, Duration: 30 day, Stop date: 08/08/14 9:00:00 Notes: (Same as: Cozaar) Start Date: 07/10/14 Stop Date: 07/10/14 Status: Canceled Lovaza oral capsule 2,000 mg, 2 cap, Route: PO, Drug Form: CAP, Dosing Weight 95.455, kg, BID, Start date: 07/09/14 17:00:00, Duration: 30 day, Stop date: 08/08/14 9:00:00 Notes: (Same as: MaxEPA, [place] 3 fish oil )Non-Formulary Drug Start Date: 07/09/14 Stop Date: 07/10/14 Status: Discontinued prasugrel 10 mg, Route: PO, Drug form: TAB, Daily, Dosing Weight 95.455, kg, Start date: 0 07/10/14 9:00:00, Duration: 30 day, Stop date: 08/08/14 9:00:00 Start Date: 07/10/14 Stop Date: 07/09/14 Status: Canceled Saline Flush 0.9% 5 ml, Route: IVP, Drug Form: INJ, Dosing Weight 95.455, kg, Q12H, Start date: 21:00:00, Duration: 30 day, Stop date: 08/08/14 9:00:00 Notes: (Same as: BD Posiflush) Start Date: 07/09/14 Stop Date: 07/10/14 Status: Discontinued Saline Flush 0.9% 5 ml, Route: IVP, Drug Form: INJ, Dosing Weight 95.455, kg, PRN, PRN Line Flush, Start date: 07/09/14 15:27:00, Duration: 30 day, Stop date: 08/08/14 15:26:00 Notes: (Same as: BD Posiflush) Start Date: 07/09/14 Stop Date: 07/10/14 Status: Discontinued Saline Flush 0.9% 5 ml, Route: IVP, Drug Form: INJ, Dosing Weight 95.455, kg, Q12H, Start date: 21:00:00, Duration: 30 day, Stop date: 08/08/14 9:00:00 Notes: (Same as: BD Posiflush) Start Date: 07/09/14 Stop Date: 07/10/14 Status: Discontinued Saline Flush 0.9% 5 ml, Route: IVP, Drug Form: INJ, Dosing Weight 95.455, kg, PRN, PRN Line Flush, Start date: 07/09/14 14:08:00, Duration: 30 day, Stop date: 08/08/14 14:07:00 Notes: (Same as: BD Posiflush) Start Date: 07/09/14 Stop Date: 07/10/14 Status: Discontinued Sodium Chloride 0.45% IV 1,000 mL 1,000 mL, Rate: 75 ml/hr, Infuse over: 13.3 hr, Route: IV, Dosing Weight 95.455 kg, Total Volume: 1,000, Start date: 07/09/14 9:39:00, Duration: 30 day, Stop da te: 08/08/14 9:38:00 Start Date: 07/09/14 Stop Date: 07/10/14 Status: Discontinued Valium 5 mg, 1 tab, Route: PO, Drug form: TAB, ONCALL, Start date: 07/09/14 10:00:00, D uration: 1 doses or times Notes: (Same as: Valium) Start Date: 07/09/14 Stop Date: 07/09/14 Status: Completed Results BLOOD BANK RESULTS Most recent to 1 2 oldest [Reference Range]: ABO/Rh A POS *Unknown* (07/09/14 9:20 AM) Antibody Scrn Negative (07/09/14 9:20 AM) HEMATOLOGY Most recent to 1 2 oldest [Reference Range]: POC Activated 182 seconds 277 seconds Clotting Time *NA* *NA* (07/09/14 4:05 PM) (07/09/14 2:30 PM) Medications Administered During Your Visit No data available for this section Immunizations No data available for this section
--- OUTSIDE RECORDS SUMMARY | 2019-05-04 14:04 | XMS REPORT | Summary of Care ---
Author Organization Unknown Address Unknown Phone Unavailable Encounter [facility](LUIZ) [id number] Date(s): 04/21/15 - 04/21/[address] [facility] [address] [place] [address] Professional Services provided by [facility] [place] [address]- Discharge Disposition: Home Physician Attending: Ewa Man MD Physician Admitting: Ewa Man MD Vital Signs No data available for this section Problem List Condition Effective Dates Status Health [...] Medications No data available for this section Results No data available for this section Immunizations No data available for this section Procedures Procedure Date Related Diagnosis Body Site MELVIN - Insertion of stent into common iliac artery Femoral-popliteal artery bypass graft Prostatectomy Social History Social History Type Response Alcohol Never Assessment and Plan No data available for this section
--- OUTSIDE RECORDS SUMMARY | 2019-05-04 14:04 | XMS REPORT | Summary of Care ---
Author Author [facility] Organization [facility] Address Unknown Phone Unavailable Encounter [facility](LUIZ) [id number] Date(s): 04/05/16 - 04/05/16 [facility] [address] Discharge Disposition: Home Attending Physician: Owen Navas MD Vital Signs No data available for [...]
--- OUTSIDE RECORDS SUMMARY | 2019-05-04 14:04 | XMS REPORT | Summary of Care ---
Author Author [facility] Organization [facility] Address Unknown Phone Unavailable Encounter LYN Payton(LUIZ) [id number] Date(s): 04/20/16 - 04/21/16 [facility] [address] [employer] provided by [employer] [facility] [place] [address]- Discharge Disposition: Home Attending Physician: Owen Navas MD Admitting Physician: Owen Navas MD Referring Physician: Owen Navas MD Vital Signs 1 2 3 Most recent to oldest [Reference Range]: 172.72 cm (04/20/16 10:29 AM) Height 97.9 DegF (04/21/16 11:00 AM) 97.2 DegF (04/21/16 7:00 AM) 97.5 DegF (04/21/16 3:54 AM) Temperature Oral [96.4-99.1 DegF] 138/68 mmHg (04/21/16 3:00 PM) 149/71 mmHg *HI* (04/21/16 1:00 PM) 141/64 mmHg *HI* (04/21/16 11:00 AM) Blood Pressure [90-140/60-90 mmHg] 18 BRMIN (04/21/16 5:00 AM) 18 BRMIN (04/21/16 1:00 AM) 18 BRMIN (04/20/16 11:00 PM) Respiratory Rate [14-20 BRMIN] 94.091 kg (04/20/16 10:29 AM) Weight 31.54 m2 (04/20/16 10:29 AM) Body Mass Index Problem List Condition [...] Reaction Severity Status NKDA Active Medications acetaminophen (ANES) (ANES) Route: IV, Drug form: INJ, Start date: 04/20/16 12:35:00 CDT, Stop date: 6 13:35:00 CDT Start Date: 04/20/16 Stop Date: 04/20/16 Status: Completed acetaminophen-hydrocodone 325 mg-5 mg oral tablet 1 tab, Route: PO, Drug Form: TAB, Dosing Weight 94.091, kg, Q4H, PRN Pain Score 4-6, Start date: 04/20/16 16:17:00 CDT, Duration: 30 day, Stop date: 05/20/16 16 :16:00 CDT Notes: (Same as: [place] 325/5) Do not exceed 4gm/day of acetaminophen. Start Date: 04/20/16 Stop Date: 04/21/16 Status: Discontinued Ancef 1 gm, Route: IVPB, Drug form: PDR/INJ, Q8H, Dosing Weight 94.091, kg, Start date : 04/20/16 22:00:00 CDT, Duration: 1 day, Stop date: 04/21/16 14:00:00 CDT Notes: (Same As: Ancef, Kefzol) MEDICATION WASTE Product Size: 1000 mgP roduct Wasted: _0_ mg Start Date: 04/20/16 Stop Date: 04/21/16 Status: Completed ANES fentaNYL 25 microgram, 0.5 mL, Route: IVP, Drug form: INJ, Q5Min, Dosing Weight 94.091, k g, PRN Pain Score 4-6, Start date: 04/20/16 15:08:00 CDT, Duration: 4 doses or t imes, Stop date: Limited # of times Notes: (Same as: Sublimaze) Preservative free. Start Date: 04/20/16 Stop Date: 04/21/16 Status: Discontinued ANES hydrALAZINE 10 mg, 0.5 mL, Route: IVP, Drug form: INJ, Q20Min, Dosing Weight 94.091, kg, PRN Elevated BP, Start date: 04/20/16 15:08:00 CDT, Duration: 2 doses or times, Stop date: Limited # of times Notes: (Same as: Apresoline)Push over 5 minutes Start Date: 04/20/16 Stop Date: 04/21/16 Status: Discontinued ANES labetalol 10 mg, 2 mL, Route: IVP, Drug form: INJ, Q5Min, Dosing Weight 94.091, kg, PRN El evated BP, Start date: 04/20/16 15:08:00 CDT, Duration: 5 doses or times, Stop d ate: Limited # of times Start Date: 04/20/16 Stop Date: 04/21/16 Status: Discontinued ANES metoprolol 1 mg, 1 mL, Route: IVP, Drug form: INJ, Q5Min, Dosing Weight 94.091, kg, PRN Oth er -See Comment, Start date: 04/20/16 15:08:00 CDT, Duration: 5 doses or times, Stop date: Limited # of times Notes: (Same as: Lopressor)Push over 2 minutes Start Date: 04/20/16 Stop Date: 04/21/16 Status: Discontinued ANES ondansetron 4 mg, 2 mL, Route: IVP, Drug form: INJ, ONCE, Dosing Weight 94.091, kg, PRN Naus ea & Vomiting, Start date: 04/20/16 15:08:00 CDT Notes: (Same as: Suhas) MEDICATION WASTE Product Size: 4 mgProduct Was eneida: ___ mg Start Date: 04/20/16 Stop Date: 04/21/16 Status: Discontinued aspirin 81 mg, 1 tab, Route: PO, Drug form: ECTAB, ONCE, Dosing Weight 94.091, kg, Start date: 04/20/16 16:20:00 CDT, Stop date: 04/20/16 16:20:00 CDT Notes: Do not crush or chew.(Same As: Ecotrin) Start Date: 04/20/16 Stop Date: 04/20/16 Status: Completed aspirin 81 mg tablet, enteric coated 81 mg, 1 tab, Route: PO, Drug form: ECTAB, Daily, Dosing Weight 94.091, kg, Star t date: 04/21/16 9:00:00 CDT, Duration: 30 day, Stop date: 05/20/16 9:00:00 CDT Notes: Do not crush or chew.(Same As: Ecotrin) Start Date: 04/21/16 Stop Date: 04/21/16 Status: Discontinued aspirin 81 mg tablet, enteric coated 81 mg=1 tab, PO, Daily, 0 Refill(s) Start Date: 04/21/16 Status: Ordered Bystolic 20 mg, 4 tab, Route: PO, Drug form: TAB, Daily, Dosing Weight 94.091, kg, Start date: 04/21/16 9:00:00 CDT, Duration: 30 day, Stop date: 05/20/16 9:00:00 CDT Notes: (same as: Bystolic) Start Date: 04/21/16 Stop Date: 04/21/16 Status: Discontinued Bystolic 20 mg oral tablet 20 mg=1 tab, PO, Daily, # 90 tab, 1 Refill(s) Start Date: 04/20/16 Status: Ordered ceFAZolin (ANES) Route: IV, Drug form: INJ, ONCE, Stop date: 04/20/16 11:57:00 CDT Start Date: 04/20/16 Stop Date: 04/20/16 Status: Completed cilostazol 100 mg oral tablet 100 mg=1 tab, PO, BID, # 60 tab, 0 Refill(s) Start Date: 04/20/16 Status: Ordered cisatracurium (ANES) Route: IV, Drug form: INJ, ONCE, Stop date: 04/20/16 12:57:00 CDT Start Date: 04/20/16 Stop Date: 04/20/16 Status: Completed Dextrose 50% Syringe 12.5 gm, 25 mL, Route: IVP, Drug Form: INJ, Dosing Weight 94.091, kg, PRN, PRN B lood Glucose Results, Start date: 04/20/16 16:22:00 CDT, Duration: 30 day, Stop date: 05/20/16 16:21:00 CDT Start Date: 04/20/16 Stop Date: 04/21/16 Status: Discontinued Dextrose 50% Syringe 25 gm, 50 mL, Route: IVP, Drug Form: INJ, Dosing Weight 94.091, kg, PRN, PRN Blo od Glucose Results, Start date: 04/20/16 16:22:00 CDT, Duration: 30 day, Stop da te: 05/20/16 16:21:00 CDT Start Date: 04/20/16 Stop Date: 04/21/16 Status: Discontinued Dilaudid 0.2 mg, 0.1 mL, Route: IV, Drug form: INJ, Q4H, Dosing Weight 94.091, kg, PRN Pa in Score 7-10, Start date: 04/20/16 16:20:00 CDT, Duration: 30 day, Stop date: 0 05/20/16 16:19:00 CDT Notes: Same as: Dilaudid Start Date: 04/20/16 Stop Date: 04/21/16 Status: Discontinued docusate 100 mg, 1 cap, Route: PO, Drug form: CAP, BID, Dosing Weight 94.091, kg, Start d ate: 04/20/16 17:00:00 CDT, Duration: 30 day, Stop date: 05/20/16 9:00:00 CDT Notes: (Same as: Colace) (Do Not Crush) Start Date: 04/20/16 Stop Date: 04/21/16 Status: Discontinued EPINEPHrine (ANES) Route: IV, Drug form: INJ, ONCE, Stop date: 04/20/16 15:42:00 CDT Start Date: 04/20/16 Stop Date: 04/20/16 Status: Completed fentaNYL (ANES) Route: IV, Drug form: INJ, ONCE, Stop date: 04/20/16 11:57:00 CDT Start Date: 04/20/16 Stop Date: 04/20/16 Status: Completed glimepiride 4 mg, 1 tab, Route: PO, Drug form: TAB, Daily, Dosing Weight 94.091, kg, Start d ate: 04/21/16 9:00:00 CDT, Duration: 30 day, Stop date: 05/20/16 9:00:00 CDT Notes: (Same as: Amaryl) Start Date: 04/21/16 Stop Date: 04/21/16 Status: Discontinued glucagon 1 mg, Route: IM, Drug form: PDR/INJ, PRN, Dosing Weight 94.091, kg, PRN Blood Gl ucose Results, Start date: 04/20/16 16:22:00 CDT, Duration: 30 day, Stop date: 0 05/20/16 16:21:00 CDT Start Date: 04/20/16 Stop Date: 04/21/16 Status: Discontinued heparin 5,000 unit, 1 mL, Route: SUB-Q, Drug form: INJ, Q8H, Dosing Weight 94.091, kg, S tart date: 04/21/16 0:00:00 CDT, Duration: 30 day, Stop date: 05/20/16 16:00:00 CDT Notes: porcine heparin Start Date: 04/21/16 Stop Date: 04/21/16 Status: Discontinued heparin (ANES) Route: IV, Drug form: INJ, ONCE, Stop date: 04/20/16 14:07:00 CDT Start Date: 04/20/16 Stop Date: 04/20/16 Status: Completed hydrALAZINE 10 mg, 0.5 mL, Route: IV, Drug form: INJ, Q2H, Dosing Weight 94.091, kg, PRN Altagracia vated BP, Start date: 04/20/16 16:20:00 CDT, Duration: 30 day, Stop date: 16:19:00 CDT Notes: (Same as: Apresoline)Push over 5 minutes Start Date: 04/20/16 Stop Date: 04/21/16 Status: Discontinued insulin aspart 4 unit, 0.04 mL, Route: SUB-Q, Drug form: SOLN, TID-Before Meals, Dosing Weight 94.091, kg, PRN Blood Glucose Results, Start date: 04/20/16 16:22:00 CDT, Durati on: 30 day, Stop date: 05/20/16 16:21:00 CDT Notes: Roll in palms of hands gently; Do not shake vigorously. (Same as: NovoARCENIO G)"single patient use only"WASTE: F/P - Black; E - Municipal Trash Bin Stable f or 28 days at room temperature.Expires in days from Date Start Date: 04/20/16 Stop Date: 04/21/16 Status: Discontinued insulin aspart 2 unit, 0.02 mL, Route: SUB-Q, Drug form: SOLN, TID-Before Meals, Dosing Weight 94.091, kg, PRN Blood Glucose Results, Start date: 04/20/16 16:22:00 CDT, Durati on: 30 day, Stop date: 05/20/16 16:21:00 CDT Notes: Roll in palms of hands gently; Do not shake vigorously. (Same as: Adelaida Molina)"single patient use only"WASTE: F/P - Black; E - Municipal Trash Bin Stable f or 28 days at room temperature.Expires in days from Date Start Date: 04/20/16 Stop Date: 04/21/16 Status: Discontinued insulin aspart 6 unit, 0.06 mL, Route: SUB-Q, Drug form: SOLN, TID-Before Meals, Dosing Weight 94.091, kg, PRN Blood Glucose Results, Start date: 04/20/16 16:22:00 CDT, Durati on: 30 day, Stop date: 05/20/16 16:21:00 CDT Notes: Roll in palms of hands gently; Do not shake vigorously. (Same as: Adelaida Molina)"single patient use only"WASTE: F/P - Black; E - Municipal Trash Bin Stable f or 28 days at room temperature.Expires in days from Date Start Date: 04/20/16 Stop Date: 04/21/16 Status: Discontinued insulin aspart 8 unit, 0.08 mL, Route: SUB-Q, Drug form: SOLN, TID-Before Meals, Dosing Weight 94.091, kg, PRN Blood Glucose Results, Start date: 04/20/16 16:22:00 CDT, Durati on: 30 day, Stop date: 05/20/16 16:21:00 CDT Notes: Roll in palms of hands gently; Do not shake vigorously. (Same as: Adelaida Molina)"single patient use only"WASTE: F/P - Black; E - Municipal Trash Bin Stable f or 28 days at room temperature.Expires in days from Date Start Date: 04/20/16 Stop Date: 04/21/16 Status: Discontinued insulin aspart 10 unit, 0.1 mL, Route: SUB-Q, Drug form: SOLN, TID-Before Meals, Dosing Weight 94.091, kg, PRN Blood Glucose Results, Start date: 04/20/16 16:22:00 CDT, Durati on: 30 day, Stop date: 05/20/16 16:21:00 CDT Notes: Roll in palms of hands gently; Do not shake vigorously. (Same as: Adelaida Molina)"single patient use only"WASTE: F/P - Black; E - Municipal Trash Bin Stable f or 28 days at room temperature.Expires in days from Date Start Date: 04/20/16 Stop Date: 04/21/16 Status: Discontinued Isolyte S PH 7.4 (ANES) (ANES) Route: IV, Total Volume: 1,000, Start date: 04/20/16 11:00:00 CDT, Stop date: 12:00:00 CDT Start Date: 04/20/16 Stop Date: 04/20/16 Status: Completed lidocaine (ANES) Route: IV, Drug form: INJ, ONCE, Stop date: 04/20/16 11:57:00 CDT Start Date: 04/20/16 Stop Date: 04/20/16 Status: Completed Lipitor 40 mg, 1 tab, Route: PO, Drug form: TAB, Bedtime, Start date: 04/20/16 21:00:00 CDT, Duration: 30 day, Stop date: 05/19/16 21:00:00 CDT Notes: (Same as: Lipitor) Start Date: 04/20/16 Stop Date: 04/21/16 Status: Discontinued losartan 25 mg, 1 tab, Route: PO, Drug form: TAB, Daily, Dosing Weight 94.091, kg, Start date: 04/21/16 9:00:00 CDT, Duration: 30 day, Stop date: 05/20/16 9:00:00 CDT Notes: (Same as: Fernanda) Start Date: 04/21/16 Stop Date: 04/21/16 Status: Discontinued losartan 25 mg oral tablet 25 mg=1 tab, PO, Daily, 0 Refill(s) Start Date: 04/20/16 Status: Ordered metoprolol (ANES) Route: IV, Drug form: INJ, ONCE, Stop date: 04/20/16 12:17:00 CDT Start Date: 04/20/16 Stop Date: 04/20/16 Status: Completed niCARdipine (ANES) Route: IV, Drug form: INJ, ONCE, Stop date: 04/20/16 12:22:00 CDT Start Date: 04/20/16 Stop Date: 04/20/16 Status: Completed norepinephrine (ANES) Route: IV, Drug form: INJ, ONCE, Stop date: 04/20/16 14:37:00 CDT Start Date: 04/20/16 Stop Date: 04/20/16 Status: Completed ondansetron 4 mg, 2 mL, Route: IVP, Drug form: INJ, Q6H, Dosing Weight 94.091, kg, PRN Nause a & Vomiting, Start date: 04/20/16 16:17:00 CDT, Duration: 30 day, Stop date: 05/20/16 16:16:00 CDT Notes: (Same as: Suhas) MEDICATION WASTE Product Size: 4 mgProduct Was eneida: ___ mg Start Date: 04/20/16 Stop Date: 04/21/16 Status: Discontinued ondansetron (ANES) Route: IV, Drug form: INJ, ONCE, Stop date: 04/20/16 15:42:00 CDT Start Date: 04/20/16 Stop Date: 04/20/16 Status: Completed pneumococcal 23-valent vaccine 0.5 mL, Route: IM, Drug Form: INJ, Daily, Start date: 04/21/16 9:00:00 CDT, Dura tion: 1 doses or times, Stop date: 04/21/16 9:00:00 CDT Notes: (Same as: Pneumovax 23) Refrigerate Start Date: 04/21/16 Stop Date: 04/21/16 Status: Completed propofol (ANES) Route: IV, Drug form: INJ, ONCE, Stop date: 04/20/16 11:57:00 CDT Start Date: 04/20/16 Stop Date: 04/20/16 Status: Completed protamine (ANES) (ANES) Route: IV, Drug form: INJ, Start date: 04/20/16 14:52:00 CDT, Stop date: 6 15:52:00 CDT Start Date: 04/20/16 Stop Date: 04/20/16 Status: Completed rosuvastatin 20 mg, Route: PO, Drug form: TAB, Bedtime, Dosing Weight 94.091, kg, Start date: 04/20/16 21:00:00 CDT, Duration: 30 day, Stop date: 05/19/16 21:00:00 CDT Start Date: 04/20/16 Stop Date: 04/20/16 Status: Discontinued rosuvastatin 20 mg, Route: PO, Drug form: TAB, Bedtime, Dosing Weight 94.091, kg, Start date: 04/21/16 21:00:00 CDT, Duration: 30 day, Stop date: 05/20/16 21:00:00 CDT Start Date: 04/21/16 Stop Date: 04/21/16 Status: Discontinued rosuvastatin 20 mg oral tablet 20 mg=1 tab, PO, Bedtime, # 30 tab, 0 Refill(s) Start Date: 04/20/16 Stop Date: 05/20/16 Status: Ordered Saline Flush 0.9% 10 ml, Route: IVP, Drug Form: INJ, Dosing Weight 94.091, kg, PRN, PRN Line Flush , Start date: 04/20/16 16:17:00 CDT, Duration: 30 day, Stop date: 05/20/16 16:16 :00 CDT Notes: (Same as: BD Posiflush) Start Date: 04/20/16 Stop Date: 04/21/16 Status: Discontinued Sodium Chloride 0.9% IV 1,000 mL 1,000 mL, Rate: 125 ml/hr, Infuse over: 8 hr, Route: IV, Dosing Weight 94.091 kg , Total Volume: 1,000, Start date: 04/20/16 16:17:00 CDT, Duration: 30 day, Stop date: 05/20/16 16:16:00 CDT Start Date: 04/20/16 Stop Date: 04/21/16 Status: Discontinued succinylcholine (ANES) Route: IV, Drug form: INJ, ONCE, Stop date: 04/20/16 12:57:00 CDT Start Date: 04/20/16 Stop Date: 04/20/16 Status: Completed Tylenol with Codeine #3 oral tablet 1 - 2 tab, PO, Q4H, PRN Pain, not to exceed 4000 mg acetaminophen per day, X 4 d ay, # 50 tab, 0 Refill(s) Start Date: 04/21/16 Stop Date: 04/25/16 Status: Ordered Zofran 4 mg, 2 mL, Route: IV, Drug form: INJ, Q4H, Dosing Weight 94.091, kg, PRN Nausea , Start date: 04/20/16 16:21:00 CDT, Duration: 30 day, Stop date: 05/20/16 16:20 :00 CDT Notes: (Same as: Zofran) MEDICATION WASTE Product Size: 4 mgProduct Was eneida: ___ mg Start Date: 04/20/16 Stop Date: 04/21/16 Status: Discontinued Results BLOOD BANK RESULTS 1 2 3 Most recent to oldest [Reference Range]: A POS *Unknown* (04/20/16 10:32 AM) ABO/Rh Negative (04/20/16 10:32 AM) Antibody Scrn ELECTROLYTES 1 2 3 Most recent to oldest [Reference Range]: 140 mEq/L (04/21/16 4:25 AM) 139 mEq/L (04/20/16 10:32 AM) Sodium Lvl [135-145 mEq/L] 4.0 mEq/L (04/21/16 4:25 AM) 4.1 mEq/L (04/20/16 10:32 AM) Potassium Lvl [3.5-5.1 mEq/L] 108 mEq/L (04/21/16 4:25 AM) 104 mEq/L (04/20/16 10:32 AM) Chloride Lvl [95-109 mEq/L] 22 mEq/L *LOW* (04/21/16 4:25 AM) 26 mEq/L (04/20/16 10:32 AM) CO2 [24-32 mEq/L] 14.0 mEq/L (04/21/16 4:25 AM) 13.1 mEq/L (04/20/16 10:32 AM) AGAP [10.0-20.0 mEq/L] CHEM PANEL 1 2 3 Most recent to oldest [Reference Range]: 0.73 mg/dL (04/21/16 4:25 AM) 1.06 mg/dL (04/20/16 6:33 PM) 0.96 mg/dL (04/20/16 10:32 AM) Creatinine Lvl [0.50-1.40 mg/dL] 94 mL/min/1.73m2 1 *NA* (04/21/16 4:25 AM) 71 mL/min/1.73m2 2 *NA* (04/20/16 6:33 PM) 80 mL/min/1.73m2 3 *NA* (04/20/16 10:32 AM) eGFR 11 mg/dL (04/21/16 4:25 AM) 11 mg/dL (04/20/16 10:32 AM) BUN [7-22 mg/dL] 102 mg/dL *HI* (04/21/16 4:25 AM) 150 mg/dL *HI* (04/20/16 10:32 AM) Glucose Lvl [70-99 mg/dL] 4.3 g/dL (04/20/16 10:32 AM) Albumin Lvl [3.5-5.0 g/dL] 7.8 mg/dL *LOW* (04/21/16 4:25 AM) 9.4 mg/dL (04/20/16 10:32 AM) Calcium Lvl [8.5-10.5 mg/dL] 3.0 mg/dL (04/21/16 4:25 AM) 2.8 mg/dL (04/20/16 10:32 AM) Phosphorus [2.5-4.5 mg/dL] 1.8 mg/dL (04/21/16 4:25 AM) Magnesium Lvl [1.8-2.4 mg/dL] 1Result Comment: The eGFR is calculated [...] be mul tiplied by the estimated BMI. HEMATOLOGY 1 2 3 Most recent to oldest [Reference Range]: 9.1 K/CMM (04/21/16 4:25 AM) WBC [3.7-10.4 K/CMM] 4.02 M/CMM *LOW* (04/21/16 4:25 AM) RBC [4.70-6.10 M/CMM] 11.5 g/dL *LOW* (04/21/16 4:25 AM) Hgb [14.0-18.0 g/dL] 34.7 % *LOW* (04/21/16 4:25 AM) Hct [42.0-54.0 %] 86.2 fL (04/21/16 4:25 AM) MCV [80.0-94.0 fL] 28.6 pg (04/21/16 4:25 AM) MCH [27.0-31.0 pg] 33.1 g/dL (04/21/16 4:25 AM) MCHC [32.0-36.0 g/dL] 15.2 % *HI* (04/21/16 4:25 AM) RDW [11.5-14.5 %] 163 K/CMM (04/21/16 4:25 AM) 180 K/CMM (04/20/16 6:33 PM) Platelet [133-450 K/CMM] 8.5 fL (04/21/16 4:25 AM) MPV [7.4-10.4 fL] 67.1 % (04/21/16 4:25 AM) Segs [45.0-75.0 %] 23.0 % (04/21/16 4:25 AM) Lymphocytes [20.0-40.0 %] 8.6 % (04/21/16 4:25 AM) Monocytes [2.0-12.0 %] 0.8 % (04/21/16 4:25 AM) Eosinophils [0.0-4.0 %] 0.5 % (04/21/16 4:25 AM) Basophils [0.0-1.0 %] 6.1 K/CMM (04/21/16 4:25 AM) Segs-Bands # [1.5-8.1 K/CMM] 2.1 K/CMM (04/21/16 4:25 AM) Lymphocytes # [1.0-5.5 K/CMM] 0.8 K/CMM (04/21/16 4:25 AM) Monocytes # [0.0-0.8 K/CMM] 0.1 K/CMM (04/21/16 4:25 AM) Eosinophils # [0.0-0.5 K/CMM] 30.3 seconds (04/20/16 6:33 PM) PTT [22.9-35.8 seconds] Immunizations Vaccine Date Refusal Reason pneumococcal 23-valent vaccine 04/21/16 Patient Refuses Procedures Procedure Date Related Diagnosis [...] No Assessment and Plan Extracted from: Title: Vascular Surgery Staff Author: Owen Navas Date: 04/21/16 MD -Patient says left groin incision pain is well-controlled. -No left leg or foot pain. Plan: -dc [place]. If voids, ok to dc home this afternoon. -FU 2 weeks in office ([phone]).
[2019-05-04] MEDS ORDERED: SODIUM CHLORIDE 0.9% 1000ML 1,000 ML IV SCH (14:30)
[2019-05-04 14:32] VITALS: BP 147/65
[2019-05-04] MEDS: LEVOFLOXACIN 500MG/D5W 100ML 100 ML IV SCH (14:57)
[2019-05-04 15:00] VITALS: BP 147/65
[2019-05-04 15:02] LABS: BASOPHILS % 0.2 % (0.0-1.0); EOSINOPHILS # (AUTO) 0.2 (0.0-0.4); EOSINOPHILS % 0.9 % (0.0-6.0); HEMATOCRIT 36.3 % (38.2-49.6); HEMOGLOBIN 12.1 g/dL (14.0-18.0); LYMPHOCYTES # (AUTO) 2.5 (1.0-3.2); LYMPHOCYTES % 14.2 % (18.0-39.1); MEAN CORPUSCULAR HEMOGLOBIN 28.7 pg (28-32); MEAN CORPUSCULAR HGB CONC 33.3 g/dL (31-35); MEAN CORPUSCULAR VOLUME 86.2 fL (81-99); MONOCYTES # (AUTO) 1.6 (0.2-0.8); MONOCYTES % 9.3 % (4.4-11.3); NEUTROPHILS % 74.9 % (38.7-80.0); PLATELET COUNT 165 x10e3/uL (140-360); RED BLOOD COUNT 4.21 x10e6/uL (4.3-5.7); RED CELL DISTRIBUTION WIDTH 13.7 % (11.7-14.4)
[2019-05-04] MEDS: DEXTROSE 5%/0.45% SOD CHL 1,000 ML IV SCH (15:12)
[2019-05-04 15:25] LABS: ALBUMIN 3.3 g/dL (3.5-5.0); ALBUMIN/GLOBULIN RATIO 0.8 (0.8-2.0); ANION GAP 15.6 mmol/L (8-16); CALCIUM 9.3 mg/dL (8.4-10.2); CREATININE, SERUM 1.41 mg/dL (0.72-1.25); POTASSIUM 3.6 mmol/L (3.5-5.1)
[2019-05-04] MEDS ORDERED: DEXTROSE 50% SYRINGE 50 ML IV PRN (16:00)
[2019-05-04] MEDS ORDERED: MONTELUKAST SOD10 MG PO (16:07)
[2019-05-04] MEDS ORDERED: AMLODIPINE BESY10 MG PO (16:07)
[2019-05-04] MEDS ORDERED: METOPROLOL TART25 MG PO (16:07)
[2019-05-04] MEDS ORDERED: METFORMIN HCL500 MG PO (16:07)
[2019-05-04] MEDS ORDERED: GABAPENTIN300 MG PO (16:07)
[2019-05-04] MEDS ORDERED: DIOVAN320 MG PO (16:07)
[2019-05-04] MEDS ORDERED: ASPIR 8181 MG PO (16:07)
[2019-05-04] MEDS ORDERED: CLOPIDOGREL75 MG PO (16:07)
[2019-05-04 16:11] VITALS: BP 147/65
[2019-05-04] MEDS: INSULIN REGULAR, HUMAN 100 UNIT/1 ML 3ML VIAL SQ SCH ×2 (16:29→20:39)
[2019-05-04 16:41] LABS: EOSINOPHILS % (MANUAL) 2 % (0-7); LYMPHOCYTES % (MANUAL) 9 % (19-48); MONOCYTES % (MANUAL) 13 % (3.4-9.0); NEUTROPHILS % (MANUAL) 76 % (40-74); RBC MORPHOLOGY COMMENT NORMAL
[2019-05-04 16:42] LABS: PLATELET MORPHOLOGY COMMENT NORMAL
[2019-05-04 16:43] LABS: PLATELET ESTIMATE ADEQUATE
--- NOTE | 2019-05-04 16:56 | Diagnostic Imaging Report ---
EXAM: CT Abdomen and Pelvis WITH contrast INDICATION: ^abdominal pain COMPARISON: None. TECHNIQUE: Abdomen and pelvis were scanned utilizing a multidetector helical scanner from the lung base to the pubic symphysis after administration of IV contrast. Coronal and sagittal reformations were obtained. Routine protocol was performed. Scan was performed when during portal venous phase. IV CONTRAST: 100 mL of Isovue 370 ORAL CONTRAST: Water COMPLICATIONS: None RADIATION DOSE: Total DLP: 599.16 mGy*cm Estimated effective dose: (DLP x 0.015 x size factor) mSv CTDIvol has been reviewed. It is below the limits set by the Radiation Protocol Committee (RPC). Dose modulation, iterative reconstruction, and/or weight based adjustment of the mA/kV was utilized to reduce the radiation dose to as low as reasonably achievable. FINDINGS: LINES and TUBES: None. LOWER THORAX: There is bibasilar atelectasis. Mild to moderate cardiomegaly. Severe trivessel coronary artery calcifications. HEPATOBILIARY: No focal hepatic lesions. No biliary ductal dilation. GALLBLADDER: No radio-opaque stones or sludge. No wall thickening. Gallbladder measures 5.1 x 7.8 cm. SPLEEN: No splenomegaly. PANCREAS: No focal masses or ductal dilatation. ADRENALS: No adrenal nodules KIDNEYS/URETERS: Kidneys enhance symmetrically. Right kidney is enlarged compared to left kidney, possibly related to renal vascular disease. 2 right and one left renal arteries. No hydronephrosis. Multiple bilateral simple renal cysts. 3.9 x 4.1 cm simple cysts in the posterior right kidney. Mild scarring in the anterior-inferior pole of the right kidney. Multiple left renal cysts with the largest measuring 2.4 cm in the anterior superior pole. No stones. GI TRACT: Wall thickening and inflammatory changes surrounding the cecum and ascending colon. Appendix and terminal ileum are grossly unremarkable. There are diverticula within the colon without evidence of diverticulitis. Appendix is normal. PELVIC ORGANS/BLADDER: Unremarkable. LYMPH NODES: No lymphadenopathy. VESSELS: There is severe atherosclerotic disease in the aorta and major arterial branches. Possible previously placed bilateral common iliac artery stents. Moderate soft plaque in the abdominal aorta at the level of diaphragm. PERITONEUM / RETROPERITONEUM: No free air or fluid. BONES: There are degenerative changes in the lumbar spine. SOFT TISSUES: Penile prosthesis. Water reservoir in the right inguinal canal. Postsurgical changes in bilateral groin, likely related to intravascular procedures. IMPRESSION: 1. Wall thickening of the cecum and ascending colon. This likely represent colitis. However, recommend colonoscopy after resolution of inflammatory changes to exclude possible underlying neoplasm. 2. Severe vascular calcifications. 3. Mild gallbladder hydrops measuring 5.1 x 7.8 cm. Signed by: Dr. Luis Alberto Rivas M.D. on 05/04/2019 4:52 PM
[2019-05-04] MEDS: METRONIDAZOLE 500MG/NS 100ML 100 ML IV SCH ×2 (17:10→20:39)
[2019-05-04] MEDS ORDERED: MORPHINE SULFATE INJ 4 MG/ML INJ 1ML IV PRN (18:00)
[2019-05-04] MEDS ORDERED: MORPHINE SULFATE 2 MG/ML SYR 1ML IV PRN (18:00)
[2019-05-04 20:06] VITALS: BP 147/68
[2019-05-04] MEDS ORDERED: SODIUM CHLORIDE 0.9% 50ML 50 ML ONE (20:11)
[2019-05-04] MEDS ORDERED: IOPAMIDOL 370 MG/ML 200 ML INFUS..BTL INJ ONE (20:11)
[2019-05-04] MEDS: SIMVASTATIN 20 MG TAB PO SCH (20:39)
[2019-05-04 20:55] VITALS: BP 147/68
--- NOTE | 2019-05-04 20:57 | History and Physical ---
ADDENDUM TO H AND P: The patient's additional diagnosis includes CAD, PAD, diabetes mellitus, hyperglycemia, acute renal failure, dehydration, and hyperlipidemia. PLAN: Plan is to continue with fluid resuscitation. Check his labs and electrolytes on a daily basis and continue to monitor the patient. MD NATALIA Fish/MODL /[id number]
[2019-05-04] MEDS ORDERED: SIMVASTATIN 40 MG TAB PO SCH (21:00)
--- NOTE | 2019-05-04 21:02 | History and Physical ---
HISTORY OF PRESENT ILLNESS: This is a 73-year-old gentleman with a history of coronary artery disease, history of uncontrolled diabetes mellitus, history of hypertension, history of hyperlipidemia, and history of PAD, was in his usual state of health until about 2 to 3 weeks prior to admission. The patient started to have some right lower quadrant pain. The pain was described as 3/10 initially, but over the weekend, the patient got his pain to be out of control and the patient apparently was going to a health food store, was given some medications, but today's morning the patient came to the clinic and was in pain and complained of distension. The patient's examination revealed colitis and the patient was sent to the emergency room and/or admit directly to the hospital for possible admission and treatment of colitis. PAST MEDICAL HISTORY: Hypertension, history of coronary artery disease, history of hyperlipidemia, history of diabetes mellitus, history of peripheral artery disease, history of diabetes with neuropathy, and end-organ damage. MEDICATIONS: Include Plavix 75 mg, metoprolol 25 mg, valsartan 320 mg, ferrous sulfate 325 mg, Bystolic 10 mg, fenofibrate 150 mg, Crestor 20 mg, metformin 500 mg once a day, glimepiride 4 mg once a day, Toujeo injections 30 units at nighttime, cilostazol for PAD 100 mg twice a day, amlodipine 10 mg, gabapentin 300 mg 3 times a day, montelukast once a day 10 mg. ALLERGIES: NO CLEAR ALLERGIES NOTED. 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 REVIEW OF SYSTEMS: Negative for chest pain. No shortness of breath. Positive for nausea. Positive for abdominal pain. Positive abdominal pain. No diplopia. No blurry vision. No hematochezia. No hematemesis either. FAMILY HISTORY: Positive for diabetes and hypertension. PHYSICAL EXAMINATION: VITAL SIGNS: Temperature 96.7, pulse of 83, respirations of 18, blood pressure is 147/65. HEENT: Normocephalic, atraumatic. Pupils are reactive to light and accommodation. The patient does not have any icterus present. CVS: S1 and S2 normal. Regular rhythm. ABDOMEN: Tender in the right lower quadrant. EXTREMITIES: No clubbing, no cyanosis, and/or no edema. LABORATORY VALUES: Initial white count of 17,000, hemoglobin of 12.1, hematocrit of 36.3, neutrophil count was 74.9. Chemistry; sodium 135, potassium 3.9, BUN 20, creatinine of 1.41. Amylase and lipase were normal. The patient's AST and ALT were normal. Coags not done. CT scan imaging shows left-sided colitis, wall thickening of the cecum and ascending colon. The patient also has severe vascular calcification in lieu of his PAD and CAD, mild gallbladder hydrops measuring 5.1 to 7.8 cm. ASSESSMENT: Ascending colitis. The patient is to be continued on Levaquin and Flagyl. The patient is n.p.o. at this time. IV fluid has been started. The patient had some hypoglycemic episodes. We will switch to D5 half NS. We will keep him off his diabetic medications for right now. Low-dose sliding scale has been instituted. The patient will continue to be on clear liquid diet. Consult with Dr. Plunkett's group has been done. Further recommendation per clinical course. We will continue to monitor the patient and will possibly need a colonoscopy as an outpatient basis. Shekhar Waller MD ASJ/MODL /[id number]
--- NOTE | 2019-05-04 22:00 | NUR ---
patient in room with lights out, IV running not complaints at this time.
[2019-05-05] VITALS (7 sets, daily range): BP systolic 130–173; BP diastolic 60–74
[2019-05-05] MEDS: DEXTROSE 5%/0.45% SOD CHL 1,000 ML IV SCH ×3 (00:45→19:55)
--- NOTE | 2019-05-05 00:45 | NUR ---
patient in room sleeping on back, IV fluids d51/2ns@ 100 to the left AC. All lights are off, bed in low and locked position. door open
--- NOTE | 2019-05-05 02:53 | Consultation ---
DATE OF CONSULTATION: 05/04/2019 GI Consult Note REASON FOR CONSULTATION: 1. Acute onset of right lower quadrant pain x3 days. 2. CT scan of the abdomen showing the cecum and ascending colonic wall thickening. HISTORY OF PRESENTING ILLNESS: A 73-year-old very pleasant male, who is limited in [place]. He has a history of prostate cancer in the past, status post total prostatectomy. He presented in the emergency room with acute onset of right lower quadrant pain without associated diarrhea or constipation. He describes the pain as 7/10 to 8/10 in intensity, mainly localized in the right lower quadrant, nonradiating, not associated with any nausea or vomiting. No extraintestinal manifestations such as fever or chills. No associated diarrhea or constipation. In the emergency room, his white count was noted at 17.36. CT of the abdomen and pelvis with contrast revealed wall thickening of the cecum and ascending colon. This likely represents colitis. Severe vascular calcification and mild gallbladder hydrops. GI has been consulted for further evaluation and recommended. The patient is currently being treated empirically with intravenous metronidazole, levofloxacin as well as IV fluids. REVIEW OF SYSTEMS: Twelve-point system reviewed. Symptomatology is limited to GI system. PAST MEDICAL HISTORY: Prostate cancer, coronary artery disease, type 2 diabetes, peripheral neuropathy, hypertension, hyperlipidemia. PAST SURGICAL HISTORY: Total prostatectomy. FAMILY HISTORY: Noncontributory. SOCIAL HISTORY: No smoking, alcohol, or any illicit drug use. HOME MEDICATIONS: Amlodipine, aspirin, clopidogrel, gabapentin, glimepiride, metformin, metoprolol, montelukast, rosuvastatin, valsartan. INPATIENT MEDICATIONS: Reviewed as per JAN. PHYSICAL EXAMINATION: VITAL SIGNS: Temperature 99.2, pulse 96, respirations 18, blood pressure 147/68, oxygen saturation 95% on room air. GENERAL: Not in any acute distress. HEENT: Oral mucosa is moist. Anicteric sclerae. CVS: S1 and S2 regular. LUNGS: Bilaterally grossly clear. ABDOMEN: Soft, nondistended. Mild right lower quadrant tenderness, without rebound, rigidity, or guarding. Positive bowel sounds. Midline healed surgical scar. No mass or hernia. EXTREMITIES: Warm. No leg edema. LABORATORY DATA: WBC 17.36, hemoglobin 12.1, hematocrit 36.3, MCV 86.2, platelet count 165. Sodium 135, potassium 3.6, chloride 100, bicarb 23, BUN 20, creatinine 1.41, glucose 54. Liver enzymes normal. Amylase normal, lipase normal. CT of the abdomen and pelvis with contrast showed: 1. Wall thickening of the cecum and ascending colon. This likely represents colitis. However, recommend colonoscopy after resolution of inflammatory changes to exclude possible underlying neoplasm. 2. Severe vascular calcification. 3. Mild gallbladder hydrops, measuring 5.1 x 7.8 cm, renal cyst. IMPRESSION: Right lower quadrant pain with thickening of the cecum and ascending colon, in the background of extensive vascular calcification in the patient with coronary artery disease. This is clinically suggestive of ischemic colitis. PLAN: Agree to resuscitate the patient with IV fluids, empiric antibiotic, clear liquid diet, advance the diet slowly. Monitor him clinically. Once the patient has recovered from this acute event, then definitely he should undergo elective colonoscopy, which can be performed as an outpatient. I will continue to monitor him while he is in the hospital. I thank Dr. Waller for allowing me to participate in the care of this patient. Derek Mcneil MD SA/WINNIE /[id number]
[2019-05-05] MEDS: METRONIDAZOLE 500MG/NS 100ML 100 ML IV SCH ×4 (03:03→21:43)
--- NOTE | 2019-05-05 03:54 | NUR ---
patient in bed with eyes closed, IV fluids running, IV patent intact, pain 3 at this time, lights out, laying on the left side
[2019-05-05 05:26] LABS: BASOPHILS % 0.3 % (0.0-1.0); EOSINOPHILS # (AUTO) 0.1 (0.0-0.4); EOSINOPHILS % 0.4 % (0.0-6.0); HEMATOCRIT 35.5 % (38.2-49.6); HEMOGLOBIN 11.7 g/dL (14.0-18.0); LYMPHOCYTES # (AUTO) 1.9 (1.0-3.2); LYMPHOCYTES % 13.2 % (18.0-39.1); MEAN CORPUSCULAR HEMOGLOBIN 28.3 pg (28-32); MEAN CORPUSCULAR VOLUME 85.7 fL (81-99); MONOCYTES # (AUTO) 1.5 (0.2-0.8); MONOCYTES % 10.5 % (4.4-11.3); NEUTROPHILS # (AUTO) 10.6 (2.1-6.9); PLATELET COUNT 160 x10e3/uL (140-360); RED BLOOD COUNT 4.14 x10e6/uL (4.3-5.7); RED CELL DISTRIBUTION WIDTH 13.5 % (11.7-14.4)
[2019-05-05 05:51] LABS: ANION GAP 13.3 mmol/L (8-16); BLOOD UREA NITROGEN 11 mg/dL (7-26); BUN/CREATININE RATIO 11 (6-25); CALCIUM 8.6 mg/dL (8.4-10.2); CARBON DIOXIDE 22 mmol/L (22-29); CHLORIDE 99 mmol/L (98-107); CREATININE, SERUM 0.98 mg/dL (0.72-1.25); EST GLOMERULAR FILTRATION RATE > 60 ML/MIN (60-); GLUCOSE 128 mg/dL (74-118); POTASSIUM 3.3 mmol/L (3.5-5.1); SODIUM 131 mmol/L (136-145)
[2019-05-05] MEDS: INSULIN REGULAR, HUMAN 100 UNIT/1 ML 3ML VIAL SQ SCH ×4 (08:51→21:00)
[2019-05-05] MEDS: METOPROLOL TARTRATE 25 MG TAB PO SCH ×2 (08:52→16:29)
[2019-05-05] MEDS: CLOPIDOGREL BISULFATE 75 MG TAB PO SCH (08:52)
[2019-05-05] MEDS: LEVOFLOXACIN 500MG/D5W 100ML 100 ML IV SCH (14:29)
[2019-05-05] MEDS ORDERED: ACETAMINOPHEN 325 MG TAB PO PRN (16:00)
--- NOTE | 2019-05-05 17:24 | NUR ---
Nutrition Screen Note RD Recommendation for Physician: -Rec advance diet as tolerated to GI soft Plan of Care: RD following, monitoring for tolerance and adequacy Nutrition reason for involvement: Nutrition Risk Trigger MST Primary Diagnose(s): abdominal pain PMH: Hypertension, coronary artery disease, hyperlipidemia, diabetes mellitus, peripheral artery disease, diabetes with neuropathy, and end-organ damage Ht: 68in Wt: 194.25lb BMI: 29.5kg/m2 IBW: 154lb RD Assessment: (05/05) Chart reviewed. Labs and meds reviewed. 73yo M, who was admitted for abdominal pain x3 days. Currently on IV abx. CT abd/pel showed colitis. Visited pt in the room. Pt tolerated clear liquid diet. Pt still complained of RLQ abdominal pain but denied any nausea or vomiting. GI was consulted. LBM 05/05, no diarrhea per pt. No complains of chewing or swallowing difficulty. Weight has been stable. Will continue to monitor and follow. Current Diet: clear liquid Malnutrition Evaluation (05/05/2019) The patient does not meet criteria for a specified degree of malnutrition at this time. Will re-evaluate at follow-up as appropriate. Diet Education Needs Assessment: Diet education not indicated. Nutrition Care Level: low Signed: Rocio Bustillo, MS, RD, LD
[2019-05-05] MEDS: PIPER-TAZ 3.375 GM 50 ML IV SCH (17:30)
--- NOTE | 2019-05-05 20:28 | Progress Note ---
DATE: SUBJECTIVE: The patient is a 73-year-old gentleman with a history of colitis, came in yesterday. The patient is feeling better. Abdominal pain is better. OBJECTIVE: VITAL SIGNS: Temperature is 98.7, pulse of 82, respiration of 16, blood pressure is 168/72, pulse oximetry of 97%. HEENT: Normocephalic, atraumatic. Pupils are reactive to light and accommodation. CVS: S1, S2 normal. Regular rate and rhythm. ABDOMEN: Tender in the right lower quadrant. No rebound. No guarding at this time. EXTREMITIES: No clubbing, no cyanosis, no edema. LABORATORY VALUES: White count is down to 14,000, hemoglobin 11.7. Chemistries; sodium 131, potassium 3.3, and glucose is 128. The patient's micro was negative so far. ASSESSMENT: Colitis. PLAN: 1. Plan is to continue on IV antibiotics. The patient shows some mild thickening of the cecum. The patient can have a colonoscopy as an outpatient basis. 2. Gallbladder hydrops. We will continue monitoring. 3. CAD. Continue with his medications. 4. Hypertension. Continue with CV medications. 5. Uncontrolled diabetes mellitus. We will continue with his diabetic medication. The patient can undergo an elective colonoscopy as an outpatient. Further recommendation per clinical course. 6. Plan and disposition. Okay to discharge in 1 to 2 days depending upon tolerance of diet and also white count. MD NATALIA Fish/MODL /[id number]
[2019-05-05] MEDS: SIMVASTATIN 20 MG TAB PO SCH (21:43)
--- NOTE | 2019-05-05 21:48 | Progress Note ---
DATE: 05/05/2019 GI Progress Report. SUBJECTIVE: The patient reports significant improvement in abdominal pain. Tolerating clear liquid diet. Has had one bowel movement, stools soft brown. No nausea or vomiting. REVIEW OF SYSTEMS: GENERAL: No fever or chills. CVS: No chest pain or palpitation. RESPIRATORY: No cough or aspiration. MEDICATIONS: Reviewed as per JAN. He is getting intravenous piperacillin/tazobactam along with metronidazole. Levofloxacin has been discontinued. He is also on other medication as per JAN. PHYSICAL EXAMINATION: VITAL SIGNS: Temperature 100.4, pulse 80, respirations 19, blood pressure 130/60, oxygen saturation 97% on room air. GENERAL: Not in any acute distress. HEENT: Oral mucosa is moist. Anicteric sclerae. ABDOMEN: Soft, right lower quadrant tenderness has significantly improved. No rebound, rigidity, or guarding. Positive bowel sounds. LABORATORY DATA: WBCs down to 14.10 from 17.36, hemoglobin 11.7, hematocrit 35.5, MCV 85.7, and platelet count 160. Sodium 131, potassium 3.3, chloride 99, bicarb 22, BUN 11, creatinine 0.98, glucose 128. Liver enzymes checked yesterday was normal. ASSESSMENT: Right lower quadrant tenderness secondary to ischemic colitis. CT scan showing wall thickening in the cecum as well as ascending colon. The right lower quadrant tenderness has significantly improved. PLAN: Continue IV fluids, IV empiric antibiotics. White count is trending down. Advance the diet from clear liquid to solid food as tolerated. I will continue to monitor him clinically. The patient already has my business card. He will follow up in my office within one week after discharge. The patient will need an elective outpatient colonoscopy. Derek Mcneil MD SA/WINNIE /[id number]
[2019-05-06] VITALS (7 sets, daily range): BP systolic 119–146; BP diastolic 57–83
[2019-05-06] MEDS: PIPER-TAZ 3.375 GM 50 ML IV SCH ×5 (00:33→23:36)
[2019-05-06] MEDS: METRONIDAZOLE 500MG/NS 100ML 100 ML IV SCH ×4 (03:14→21:19)
--- NOTE | 2019-05-06 04:35 | NUR ---
patient in bed with eye closed, no distress at this time. IV intact laying on his back, bed in low and locked position
--- NOTE | 2019-05-06 07:00 | NUR ---
RCD PT AT BED PT IS ALERT AND ORIENTED PT RESTING ON BED NO SIGNS OF ANY DISTRESS NOTED ONE TIME BM HE HAD IV PATENT BED LOW AND LOCKED CALL LIGHT IN REACH
--- NOTE | 2019-05-06 07:04 | NUR ---
report and walking rounds completed Kimberley WELLER. patient in bed sleeping, IV fluids running
[2019-05-06] MEDS: DEXTROSE 5%/0.45% SOD CHL 1,000 ML IV SCH ×3 (07:30→21:22)
[2019-05-06] MEDS: INSULIN REGULAR, HUMAN 100 UNIT/1 ML 3ML VIAL SQ SCH ×4 (07:30→21:00)
--- NOTE | 2019-05-06 08:13 | NUR ---
PAGED DR HORVATH AND NOTIFY THE POTASSIUM LEVEL 3.3 ON YESTURDAY GOT NEW ORDERS
[2019-05-06] MEDS ORDERED: POTASSIUM CHLORIDE 20 MEQ TAB CR PO STA (08:14)
--- NOTE | 2019-05-06 08:55 | Progress Note ---
DATE: SUBJECTIVE: The patient is a 73-year-old male, who comes in with acute colitis, right-sided. The patient's CT scan shows colitis. Currently, the patient is feeling better. The pain has gone down in intensity, 2/10 in intensity. The patient is on a full liquid diet, tolerating without any problems. Abdominal pain is better. No rebound and no guarding reported at nighttime and no fever reported at nighttime. OBJECTIVE: VITAL SIGNS: Temperature is 95.9, T-max is 100.4 on 05/05 at 2100 hours. HEENT: Normocephalic, atraumatic. There is no pallor present and no icterus present. CVS: S1 and S2 normal. Regular rate and rhythm. ABDOMEN: Tender in the right lower quadrant, but nondistention present. EXTREMITIES: No clubbing, no cyanosis, no edema. LABORATORY VALUES: None done today. White count had trended down to 14,000. The patient's antibiotic has been changed to Zosyn. ASSESSMENT: 1. Ascending colitis. The patient has been changed to Zosyn. The patient has been started on full liquid diet and tolerating it. We will advance the diet as needed. The patient's IV fluids will be switched to normal saline. The patient did continue on antibiotics. 2. For his coronary disease, continue CV medications. 3. For diabetes, continue with insulin sliding scale. We will restart his home medications as we go along and the patient is eating better. GI consult and possible colonoscopy as an outpatient basis has been decided. Further recommendation per clinical course. DISPOSITION: Possible discharge in 1 to 2 days. MD NATALIA Fish/MODL /[id number]
[2019-05-06] MEDS: CLOPIDOGREL BISULFATE 75 MG TAB PO SCH (09:00)
[2019-05-06] MEDS: METOPROLOL TARTRATE 25 MG TAB PO SCH ×2 (09:00→17:00)
--- NOTE | 2019-05-06 19:03 | Progress Note ---
DATE: 05/06/2019 GI Progress Report. SUBJECTIVE: The patient reports no abdominal pain today. Three loose bowel movements. His stool remain soft, brown. H is still on full liquid diet. REVIEW OF SYSTEMS: GENERAL: No fever or chills. CVS: No chest pain or palpitation. RESPIRATORY: No cough or expectoration. MEDICATIONS: Reviewed in the MAR. He is on intravenous piperacillin/tazobactam along with metronidazole. He is also on other medications. PHYSICAL EXAMINATION: VITAL SIGNS: Temperature 97.7, pulse 83, respirations 20, blood pressure 144/63, oxygen saturation 98% on room air. GENERAL: Not in any acute distress. HEENT: Oral mucosa is moist. Anicteric sclerae. ABDOMEN: Soft. Right lower quadrant tenderness has almost resolved. No rebound, rigidity, or guarding. Positive bowel sounds. LABORATORY DATA: No lab drawn today. ASSESSMENT: Right lower quadrant tenderness secondary to ischemic colitis. This has significantly resolved. PLAN: Advance the diet to solid food. Continue IV antibiotic for a day or two. Once the patient tolerates the solid food, then he can be discharged to home from GI standpoint. The patient will follow me in my office within one week after discharge. He has my business card. Derek Mcneil MD SA/WINNIE /[id number]
--- NOTE | 2019-05-06 19:14 | NUR ---
PT RESTING ON BED BED SIDE REPORT GIVEN TO ONCOMING NURSE
[2019-05-06] MEDS: SIMVASTATIN 20 MG TAB PO SCH (21:18)
--- NOTE | 2019-05-06 23:45 | NUR ---
patient laying in bed with eye closed, TV on and lights out, no complaints of pain at this time. Bed in low and locked position
[2019-05-07 00:14] VITALS: BP 137/64
[2019-05-07] MEDS: METRONIDAZOLE 500MG/NS 100ML 100 ML IV SCH ×2 (03:07→08:49)
[2019-05-07 05:45] VITALS: BP 157/70
[2019-05-07] MEDS: PIPER-TAZ 3.375 GM 50 ML IV SCH (05:54)
[2019-05-07 06:09] LABS: BASOPHILS # (AUTO) 0.1 (0.0-0.1); BASOPHILS % 0.4 % (0.0-1.0); EOSINOPHILS # (AUTO) 0.3 (0.0-0.4); EOSINOPHILS % 2.4 % (0.0-6.0); HEMOGLOBIN 12.1 g/dL (14.0-18.0); LYMPHOCYTES % 15.6 % (18.0-39.1); MEAN CORPUSCULAR HEMOGLOBIN 28.4 pg (28-32); MEAN CORPUSCULAR HGB CONC 33.6 g/dL (31-35); MEAN CORPUSCULAR VOLUME 84.5 fL (81-99); MONOCYTES # (AUTO) 1.1 (0.2-0.8); MONOCYTES % 8.5 % (4.4-11.3); NEUTROPHILS # (AUTO) 9.2 (2.1-6.9); NEUTROPHILS % 72.2 % (38.7-80.0); PLATELET COUNT 184 x10e3/uL (140-360); RED BLOOD COUNT 4.26 x10e6/uL (4.3-5.7); RED CELL DISTRIBUTION WIDTH 13.9 % (11.7-14.4)
[2019-05-07 06:33] LABS: ALANINE AMINOTRANSFERASE 72 IU/L (0-55); ALBUMIN 2.5 g/dL (3.5-5.0); ALBUMIN/GLOBULIN RATIO 0.6 (0.8-2.0); ALKALINE PHOSPHATASE 107 IU/L (40-150); ANION GAP 14.9 mmol/L (8-16); BLOOD UREA NITROGEN 8 mg/dL (7-26); BUN/CREATININE RATIO 9 (6-25); CALCIUM 9.1 mg/dL (8.4-10.2); CARBON DIOXIDE 18 mmol/L (22-29); CHLORIDE 109 mmol/L (98-107); CREATININE, SERUM 0.86 mg/dL (0.72-1.25); EST GLOMERULAR FILTRATION RATE > 60 ML/MIN (60-); GLUCOSE 124 mg/dL (74-118); MAGNESIUM 1.6 MG/DL (1.3-2.1); POTASSIUM 3.9 mmol/L (3.5-5.1); SODIUM 138 mmol/L (136-145)
--- NOTE | 2019-05-07 07:10 | NUR ---
PT ALERT LYING ION BED RESP EVEN AND UNLABORED AT THIS TIME, NO DISTRESS NOTED, NO C/O PAIN WHEN ASKED, CALL LIGHT IN REACH.
--- NOTE | 2019-05-07 07:17 | NUR ---
report given to Aubrie Germain, patient alert and oriented, bed in low and locked position, board updated.
[2019-05-07 08:38] VITALS: BP 136/63
[2019-05-07] MEDS: CLOPIDOGREL BISULFATE 75 MG TAB PO SCH (08:49)
[2019-05-07] MEDS: METOPROLOL TARTRATE 25 MG TAB PO SCH (08:49)
[2019-05-07 09:00] VITALS: BP 136/63
--- NOTE | 2019-05-07 10:30 | Progress Note ---
DATE: SUBJECTIVE: The patient is a 73-year-old male, who comes in with colitis. Currently, the patient is feeling better. Had a proper meal yesterday, did not have any complaints. The patient has been tolerating diet well. Abdominal pain has been controlled very well. LABORATORY DATA: Today's white count is 12,000, hemoglobin of 12.1, and hematocrit of 36.0. Chemistries show sodium 138, potassium 3.9, glucose of 124. ALT and AST slightly elevated 68 and 72. The patient is currently on Zosyn. MEDICATIONS: Zosyn, back on simvastatin, metoprolol, clopidogrel, and insulin sliding scale. IMAGING STUDY: None done aside from CT done initially. ASSESSMENT: Right lower quadrant tenderness, ischemic colitis. The patient is on Zosyn. The patient is tolerating foods. The patient can be discharged on p.o. antibiotic with Levaquin and Flagyl. The patient can be followed up with Dr. Derek Mcneil as an outpatient after discharge and we will continue to monitor the patient as an outpatient. Further recommendation per clinical course. We will continue to monitor the patient. The patient will be followed up with me in about 1 to 2 weeks time. MD NATALIA Fish/WINNIE /[id number]
[2019-05-07 12:41] VITALS: BP 150/76
== END 2019-05-07 12:49 | disposition home or self-care (01) | DRG 395 ==
LOC: MED/SURG2 13:58
PROVIDERS: ADMIT Family Medicine; ATTEND Family Medicine
DX: K55.9 Vascular disorder of intestine, unspecified (principal); I25.10 Atherosclerotic heart disease of native coronary artery without angina pectoris; E11.65 Type 2 diabetes mellitus with hyperglycemia; I10 Essential (primary) hypertension; E78.5 Hyperlipidemia, unspecified; E11.51 Type 2 diabetes mellitus with diabetic peripheral angiopathy without gangrene; E11.40 Type 2 diabetes mellitus with diabetic neuropathy, unspecified; Z79.4 Long term (current) use of insulin; Z95.820 Peripheral vascular angioplasty status with implants and grafts; K52.9 Noninfective gastroenteritis and colitis, unspecified; Z85.46 Personal history of malignant neoplasm of prostate
CPT/HCPCS: 36415; 74177; 80048; 80053; 82150; 82948; 83036; 83690; 83735; 85025; 87040; J1956; J2270; J2543; J7030; J7799; Q9967

== ENCOUNTER → 2019-07-10 | Outpatient (CLI) | payer BC ==
[~2019-07-10] MED LIST changes: +AMLODIPINE BESY10 MG PO; +ASPIR 8181 MG PO; +CLOPIDOGREL75 MG PO; +DIOVAN320 MG PO; +GABAPENTIN300 MG PO; +IOPAMIDOL 370 MG/ML 200 ML INFUS..BTL INJ ONE; +METFORMIN HCL500 MG PO; +METOPROLOL TART25 MG PO; +MONTELUKAST SOD10 MG PO; +SODIUM CHLORIDE 0.9% 50ML 50 ML ONE
[2019-07-10 13:06] LABS: BLOOD UREA NITROGEN 14 mg/dL (7-26); BUN/CREATININE RATIO 16 (6-25); CREATININE, SERUM 0.89 mg/dL (0.72-1.25); EST GLOMERULAR FILTRATION RATE > 60 ML/MIN (60-)
--- NOTE | 2019-07-10 14:48 | Diagnostic Imaging Report ---
Abdominal CT angiogram with contrast COMPARISON: CT of the abdomen and pelvis dated 05/04/2019. HISTORY: Ascending colon ischemic colitis The abdomen was scanned utilizing a multidetector helical scanner from the lung base through the aortic bifurcation during the arterial contrast phase. Coronal and sagittal reformations were obtained. 3D post-processing of the images was performed, and the post-processed images were used in interpretation. Dose modulation, iterative reconstruction, and/or weight based adjustment of the mA/kV was utilized to reduce the radiation dose to as low as reasonably achievable. FINDINGS: VESSELS: There are moderate calcified and noncalcified atherosclerotic plaques in the aorta. There is no evidence of abdominal aortic aneurysm. The celiac axis is mildly narrowed at its ostium secondary to atherosclerotic calcifications. The hepatic arteries and splenic arteries are patent. There is significant atherosclerotic calcifications at the origin of superior mesenteric artery however the superior mesenteric artery remains patent and there is good opacification of the artery by contrast. The SVEN is widely patent. There are two right renal arteries and a single left renal artery, which are patent. LUNG BASES: The visualized lungs are clear. There are no pleural effusions. ABDOMEN: The liver, gallbladder, spleen, bilateral adrenal glands, and pancreas are unremarkable. The left kidney is atrophic. Multiple bilateral renal cysts are identified the largest of which is in the right kidney and measures proximally 4 cm in diameter. No evidence of nephrolithiasis bilaterally. No hydroureteronephrosis. The portions of the bowel are decompressed without evidence of obstruction. There is mild wall thickening of the ascending colon. BONES: Multilevel degenerative changes of thoracolumbar spine are noted. No acute osseous abnormality. IMPRESSION: 1. Atherosclerotic disease with significant calcifications at the origin of the superior mesenteric artery. The superior mesenteric artery however remains patent. 2. Wall thickening of the ascending colon likely secondary to colitis. Signed by: Jimmie Yanez MD on 07/10/2019 2:44 PM
== END ==
LOC: CT 12:10
PROVIDERS: ATTEND Internal Medicine Gastroenterology
DX: K55.8 Other vascular disorders of intestine (principal)
CPT/HCPCS: 36415; 74175; 82565; 84520; Q9967